=== PATIENT | male | born 1965 | race African-American/Black ===

== ENCOUNTER → 2023-12-10 | Outpatient (REF) | payer OTHER, SELFPAY | LOC: DHSLP | PROVIDERS: ATTENDING PHYSICIAN Internal Medicine; FAMILY PHYSICIAN Family Medicine | DX: G47.33 Obstructive sleep apnea (adult) (pediatric) (principal) | CPT/HCPCS: 95800 ==

== ENCOUNTER 2024-11-15 11:03 | Inpatient (IN) | payer OTHER, SELFPAY ==
[2024-11-15] VITALS (21 sets, daily range): BP systolic 109–154; BP diastolic 68–95; BMI 27.0
[2024-11-15 05:51] LABS: % Basophils 0.5 % (0-2); % Eosinophils 1.3 % (0-6); % Immature Granulocytes 0.4 % (0-0.5); % Lymphocytes 27.8 % (20.5-51.1); % Monocytes 7.3 % (1.7-9.3); % Neutrophils 62.7 % (42.2-75.2); Absolute Eosinophils 0.1 10^3/uL (0-0.7); Absolute Lymphocytes 2.2 10^3/uL (1.2-3.4); Absolute Monocytes 0.6 10^3/uL (0.1-0.6); Hematocrit 42.4 % (39.0-52.0); Hemoglobin 14.1 g/dL (13.0-18.0); Mean Corp Hgb Conc. 33.3 g/dL (33.0-37.0); Mean Corpuscular Hgb 28.6 pg (27.0-31.0); Mean Platelet Volume 10.7 fL (7.4-10.4); Nucleated Red Blood Cells % 0 % (-); Platelet Count 185 10^3/uL (130-400); Red Blood Cell Count 4.93 10^6/uL (4.70-6.10); Red Cell Dist. Width 12.5 % (11.5-14.5)
--- NOTE | 2024-11-15 05:58 | ED.GENMED ---
History of Present Illness
General
Chief Complaint: Chest Pain
Source: patient and ambulance crew
Exam Limitations: none
Time Seen by Provider: 11/15/24 05:58
Nursing documentation reviewed up to this point in time: agreed with
History of Present Illness
History of Present Illness:
59-year-old male presents emergency room due to chest pain that woke up from sleep. He took 4x81mg aspirins prior to EMS arrival and caused chest pain to go away. He denies pain at this time.
Past History
Past History
ED Past Medical History: HTN
ED Past Surgical History: Orthopedic (Left hip replacement due to arthritis)
Social History
Tobacco: Non-smoker
Alcohol: Occasional
Drug: None
Living: with family
Employment: Employed
Review of Systems
Review of Systems
Allergies reviewed?: Yes
All Other Systems: Not applicable
Constitutional: Reports no symptoms
EENT: Reports no symptoms
Respiratory: Reports no symptoms
Cardiac: Reports chest pain
ABD/GI: Reports no symptoms
: Reports no symptoms
Musculoskeletal: Reports no symptoms
Skin: Reports no symptoms
Neurological: Reports no symptoms
Endocrine: Reports no symptoms
Hematologic/Lymphatic: Reports no symptoms
Psychiatric: Reports no symptoms
Phy Exam
Physical Exam
Physical Exam:
Physical Exam
General: no apparent distress, not acutely ill
Neck: supple. no meningeal signs. normal posterior pharynx
Heart: s1/s2 regular rate and rhythm, no murmur. equal radial
pulses.
HEENT: Pupils equal round reactive to light, EOMI
Lungs: no acute respiratory distress. clear bilaterally
Abdomen: normal bowel sounds. not tender. no CVAT
Neuro: alert and oriented. no focal neurological deficits cranial nerves II through XII intact
Skin: no rash
Psychiatric: well kept. interactive and cooperative
Extremities: no edema. no calf tenderness. negative homans. good distal pulses
Scores
Heart Score for Chest Pain Patients
STEMI patient?: No
History: Moderately Suspicious
ECG: Normal
Age: >45 - <65 years
Risk Factors: 1 or 2 Risk Factors
Troponin: >/= 3 x Normal Limit
Heart Score for Chest Pain Patients: 5
Heart Score Risk: 20.3% MACE over next 6 weeks
Course
Orders/Labs/Results
Orders:
Orders
11/15/24 05:27
Electrocardiogram (*1) Urgent
Reason for Study: Chest Pain
EKG- Treatment ONCE
11/15/24 05:39
Complete Blood Count/With Diff Urgent
Comprehensive Metabolic Panel Urgent
Troponin I Urgent
11/15/24 08:37
ECG [Electrocardiogram (*1)] Urgent
Reason for Study: Chest Pain
Other Reason for Exam: repeat with troponin
EKG- Treatment ONCE
11/15/24 08:47
Troponin I Urgent
11/15/24 09:42
Heparin 4,000 units IV NOW STA
Pharmacy Request to Place See Dose Instructions PO NOW STA
Discontinue all Active Warfarin orders?: Yes
Nursing to Place Non Medication Order As Directed
Physician Order: PTT 6 hours after initial start of Heparin infusion
Above order entered?: Yes
11/15/24 09:45
Heparin 86287 Units/250 ml 25,000 units in 250 ml IV PER PROTOCOL
Weight to be used for heparin protocol in kilograms (kg):: 73.7
Protocol:: Cardiac Tx/Acute Coronary
PTT Goal Range to be used:: PTT 73 to 111 seconds
Order type:: Initial
INITIAL Infusion Dose (UNITS/KG/hr) & then follow protocol:: 15 units/kg/hr
Infusion Dose in UNITS/hr & then follow protocol (UNITS/hr):: 1,100
INFUSION RATE in mL/hr & then follow protocol (mL/hr):: 11
PTT less than or equal to 64 seconds:: Increase rate by 200 units/hr (+ 2 mL/hr)
PTT 64.1 to 72.9 seconds:: Increase rate by 100 units/hr (+ 1 mL/hr)
PTT 73 to 111 seconds:: Target Range. No change in rate.
PTT 111.1 to 130.9 seconds:: Decrease rate by 100 units/hr (- 1 mL/hr)
PTT 131 to 199.9 seconds:: HOLD for 1 hr. Then decrease rate by 200 units/hr (- 2 mL/hr)
PTT greater than or equal to 200 seconds:: HOLD for 2 hrs & Notify Provider. Then decrease by 200 units/hr (-
2 mL/hr)
Lab follow-up:: Each change, PTT q6h until 2 consecutive are therapeutic. Then PTT
daily.
11/15/24 10:[address] See Dose Instructions IV DIRECTED
11/15/24 10:01
PTT Urgent
Comment: Obtain baseline before beginning heparin infusion if not already collected
11/15/24 10:39
Admit/Transfer Patient As Directed
Co-Sign Provider:
Level of Care: Inpatient admission
Assign to:: IVU
Physician / Group: Torrey Hancock
Diagnosis: chest pain, r/o NSTEMI
Reason for Hospitalization: chest pain, r/o NSTEMI
Expected length of stay greater than two midnights?: Yes
ELOS- Estimated Length of Stay in days: 2
I certify the patient meets the requirements for IP care: Yes
Aspirin 325 mg PO NOW STA
PRN Pain Medication Management As Directed
May give lesser potent ordered pain med per pt: Yes
preference::
Protocol:: Medication orders for pain may be administered in a
manner that supports deferring to patient preference
when the pt is:
- Requesting an ordered lesser potent pain medication.
Least to most potent pain medications are defined
as: acetaminophen < NSAID < tramadol < opioids
(morphine, oxycodone, hydromorphone).
- Requesting a lesser dose of the same medication IF
ORDERED.
- Requesting a less intrusive route of administration
if both routes are prescribed by the provider (PO <
IV).
11/15/24 10:40
Code Status As Directed
Resuscitation Status: Full Code
11/15/24 10:44
Echo 2D MMode Color/Doppler Urgent
Reason for Study: chest pain
Abnormal Lab Results
11/15/24 11/15/24
05:39 08:47
MPV 10.7 H fL
(7.4-10.4)
Troponin I 0.039 H* ng/ml 0.751 H* D ng/ml
Total Protein 9.1 H g/dl
(6.3-8.2)
11/15/24 05:39
11/15/24 05:39
Vital Signs
Initial and Last Documented VS:
Initial Vital Signs
Pulse Resp
68 19
11/15/24 05:23 11/15/24 05:23
Last Documented Vital Signs
Temp Pulse Resp BP Pulse Ox
97.4 F 66 14 114/74 98
11/15/24 05:28 11/15/24 09:15 11/15/24 09:15 11/15/24 09:00 11/15/24 09:15
MDM/Problems Addressed
Differential Diagnosis Includes:
ACS, PE
MDM/Problems Addressed:
59-year-old male with ACS, troponin elevated. Do not suspect PE. Patient took aspirin at home. Heparin given in ED. Admit to hospitalist. Cardiology to see patient.
Chronic conditions affecting care: HTN
Acute Exacerbation and/or Progression of Chronic Illness: HTN
*Pulse Oximetry
Patient hypoxic: no
*EKG
Interpreted by ED Provider?: Yes
EKG Intrepretation Date: 11/15/24
EKG Intrepretation Time: 05:29
Interpretation: normal
Comparison EKG: no comparison EKG present
Heart Rate: 64
Rate: normal
Rhythm: sinus
[place]: normal axis
Interval: normal interval
QRS Pattern: normal QRS
Ischemia: no ischemia
*Embroidery Finisher Interpretation
Rate: normal
Interpretation: normal
Heart Rate: 65
Rhythm: sinus
*Critical Care Note
Total Time (30-74mins, 75-104mins- exclusive of procedures): 30
comment:
Critical care statement: A total of 30 minutes of critical care time was provided for this patient. This includes management of unstable vital signs, evaluation of the patient at bedside, reviewing the patient's pertinent medical records, discussion
with consultants, review of old EKGs and review of pertinent medical records. This time with separate from time utilized to perform the aforementioned documented procedures
Patient Management
Social determinants of health affecting care: Living situation and Strong social support
Discussion with other providers: Hospitalist and Community Placement Worker (Cardiology, Dr. York)
Escalation/DeEscalation of care consider admission/obs:
Admission indicated
ED Attending Note
-
Portions of this chart may have been created with voice recognition software.� Occasional wrong word or��sound alike� substitutions may have occurred due to the inherent limitations of voice recognition software.
Discharge Plan
Departure
Patient Disposition: Admit
Date of Disposition: 11/15/24
Time of Disposition: 09:36
Admit to: IVU
Presentation/result/management discussed w/ accepting MD/DO: Hospitalist
Patient with high blood pressure during this ER visit?: No
Condition: Good
Discharge Problem:
Acute non-ST elevation myocardial infarction (NSTEMI)
Interventions
Interventions:
*General Assessment Last Done: 11/15/24 05:28
*Neglect/Abuse Screening Last Done: 11/15/24 05:28
ED- Fall Risk Assessment Last Done: 11/15/24 07:27
*ED COVID-19 Vaccine History Last Done: 11/15/24 05:37
ED- Cardiac Assessment Last Done: 11/15/24 07:27
[2024-11-15 06:02] LABS: ALT (SGPT) 25 U/L (0-50); AST (SGOT) 32 U/L (17-59); Alkaline Phosphatase 88 U/L (38-126); Blood Urea Nitrogen 17 mg/dl (9-20); Calcium 9.3 mg/dl (8.4-10.2); Carbon Dioxide 22 mmol/L (22-30); Chloride 101 mmol/L (98-107); Estimated Creatinine Clearance 59 ml/min; Glucose 89 mg/dl (70-99); Sodium 140 mmol/L (135-145); Total Bilirubin 0.8 mg/dl (0.2-1.3); Total Protein 9.1 g/dl (6.3-8.2); eGFR > 60.00
[2024-11-15 06:20] LABS: Troponin I 0.039 ng/ml
[2024-11-15 09:21] LABS: Troponin I 0.751 ng/ml
[2024-11-15] MEDS: HEPARIN 25000 UNITS/250 ML IV (09:52)
[2024-11-15] MEDS: HEPARIN 4000 UNITS IV (10:05)
[2024-11-15 10:20] LABS: APTT 30.1 Sec (23.4-35.0)
--- NOTE | 2024-11-15 10:48 | HPS.HSE ---
Family Physician
-
Family Physician: Guzman Pierre
Chief Complaint
-
Chest pain
History of Present Illness
Patient is a 59-year-old male with past medical history of hypertension, history of bipolar disorder, sleep apnea came to ER with new onset of sternal chest pain in the morning today. Patient having waxing waning symptoms of substernal chest
pressure for 2 weeks. Patient woke up from the pain today in the morning. Minimal reported nausea and diaphoresis. Patient took 4 baby aspirin and EMS was called.
In ER patient was symptom-free denies of ongoing associated shortness of breath/dizziness/palpitation. No previous history of cardiac issues.
Denies of any ongoing abdominal/ complaints as well.
Medical History
Past Medical History
Past Medical History: Reports Other
Additional Past Medical History:
bipolar disorder, NILAY, HTN
Past Surgical History: Reports None
Social History
Tobacco: Non-smoker
Alcohol: Former
Drug: None
Living: With Family
Family History
Family History: Not pertinent
Allergies / Home Medications
Allergies reflects when Allergies were last updated in [email or web address].
Home Medications with original date entered in [email or web address]
Allergy/Medication List:
Allergies
Allergy/AdvReac Type Severity Reaction Status Date / Time
Penicillins Allergy Unknown Unknown Verified 11/15/24 11:19
eggs Allergy Unknown Rash Uncoded 11/15/24 11:19
flu shot Allergy Unknown Uncoded 11/15/24 11:19
Home Medications
aspirin 81 mg chewable tablet 324 mg PO DAILYPRN PRN chest pain 11/15/24
losartan 50 mg tablet 50 mg PO DAILY 11/15/24
Review of Systems
-
A 12 point ROS was completed and negative except as noted: Yes
Physical Exam
Vital Signs
Vital Signs
Temp Pulse Resp BP Pulse Ox
97.4 F 66 14 114/74 98
11/15/24 05:28 11/15/24 09:15 11/15/24 09:15 11/15/24 09:00 11/15/24 09:15
Physical Exam
General: Well Developed, Well Nourished and No Apparent Distress
HEENT: NormoCephalic, Moist mucous membranes and Atraumatic
Respiratory: Clear
Cardiac: S1/S2 and Regular Rhythm; No Murmur or Rub
GI: Soft, Non Tender, Non Distended and Normal Bowel Sounds; No Organomegaly
Rectal: Deferred by Provider
Musculoskeletal: No Clubbing, No Cyanosis and No Edema
Skin: No Rash
Neuro: Nonfocal/grossly intact
Laboratory Results
-
11/15/24 05:39
11/15/24 05:39
Laboratory Results
APTT 30.1 Sec (23.4-35.0) 11/15/24 10:01
Total Bilirubin 0.8 mg/dl (0.2-1.3) 11/15/24 05:39
AST 32 U/L (17-59) 11/15/24 05:39
ALT 25 U/L (0-50) 11/15/24 05:39
Alkaline Phosphatase 88 U/L (38-126) 11/15/24 05:39
Troponin I 0.751 ng/ml H* D 11/15/24 08:47
Data Reviewed
-
Lab Data: Labs Reviewed by me, Discussed with Patient and Discussed with Family
Impression/Plan
-
1. Chest pain
NSTEMI
-Ongoing on and off substernal chest pain with worsening in the morning today
-Patient had elevated troponin 0.39 > 0.75
-EKG reviewed and no significant ST seg elevation
-Got aspirin 325 mg in the ER
-Started on heparin drip
-TTE ordered
-Cardio evaluation requested
2. Essential HTN
- hold losartan with possible need of LHC
3. HLD
- TC 219 LDL 157 HDL 46
- started on lipitor 40mg qpm
DVT PPX - heparin drip
Full code
Total time spent : 77 mins
I personally saw and examined the patient.
I have reviewed all diagnostic interpretations and treatment plans as written.
Time includes patient management by me, time spent at the patients bedside, time to review lab and imaging results, discussing patient care, documentation in the medical record, and time spent with the family or caregiver and discussing care plan
with RN/Consultants.
--- NOTE | 2024-11-15 11:05 | CON.CAR ---
Addendum entered and electronically signed by Denton Pinedo MD 11/15/24 12:33:
Attending addendum: Patient seen and examined. PA note reviewed and findings independently confirmed by me. Briefly, Simeon is a 59-year-old gentleman with a past medical history notable for hypertension, unknown lipids, bipolar disorder which he
discontinued his Risperdal quite sometime ago, and sleep apnea. He presented to [facility] with a 2-week history of waxing and waning substernal chest pressure. The initial episode occurred during a lunch break at work approximately 2
weeks ago. He developed epigastric and substernal chest pressure lasting approximately 10 minutes before spontaneous resolution. He remained chest pain-free over the intervening 2 weeks but developed recurring chest tightness last evening which
awoke him from sleep. He lives with his parents and called for help. He was nauseated and somewhat diaphoretic. They gave 4 baby aspirin and 911 was called. He was chest pain-free on arrival but developed some vague recurring chest tightness
which also resolved with medical therapy. His initial troponin measured 0.039 ng/mL and measured 0.751 ng/mL on repeat.
GEN: AAO x 3.��No acute distress
HEENT:��NC/AT, sclera are anicteric, hearing and nares are normal.�
NECK: Supple.��Normal JVP
LUNGS: Clear to bases bilaterally.��No wheezing or rhonchi
CV: Regular rate and rhythm.��Normal S1/S2.��No S3, No S4.��Murmur: None
ABD : Soft, NT, ND, No HSM.��Bowel sounds are present.
EXT: No CCE. Faint right radial pulse.
NEURO: No focal neurologic deficits��
RECOMMENDATION:
-Non-ST segment elevation myocardial infarction:
Will proceed with left heart catheterization to delineate coronary anatomy. Further management decisions will be made after the angiogram is completed.
Aspirin 324 mg
Continue IV heparin
Check fasting lipid profile and continue to trend troponin levels
High intensity statin
-Hypertension
He states blood pressures are reasonably well-controlled on losartan/hydrochlorothiazide. Will continue to monitor.
-Unknown lipids:
Fasting lipid profile
Will require high intensity statin therapy
Original Note:
Consultation
Consultation Request
Date/Time Consultation Requested: 11/15/24
Date/Time Consultation Performed: 11/15/24
Requesting Provider: Dr. Torrey Hancock
Performing Provider: Dr. Pineod
Reason for Consultation: Chest pain, elevated Troponin
Medical History
-
History of Present Illness:
Patient came to [facility] with chest pain and cardiology is consulted due to increasing Troponin. Patient volunteers that he is the son of Yanna Solorio who follows with Dr. Pinedo and has a h/o CAD. Patient's sister is sitting bedside and reports that
patient's sister had CABG in her late 50s and his mother had PCI in her late 50s as well. Patient does not have a h/o CAD and has not previous cardiac testing. 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
started with chest pain after eating his lunch and the pain improved within minutes and he finished his shift. No recurrence of pain until he was at work again last night and again had pain after eating, but was able to walk back to his machine and
the pain improved without specific intervention and he finished his shift. Patient returned home and went to bed around 0300 this morning and awoke with crushing chest pain that was similar to, but much more intense than the pain he had last night.
He sat up and the pain was worse. He called out to his parents for help and they called 911 and had him chew 4 baby aspirin. Patient says pain improved in the ambulance and he was not given NTG SL. No recurrence of pain. Initial Troponin in the ER
was 0.039 and then up to 0.751. ECG with J point elevation, but no acute ST changes. He is pain free during my HPI. Patient reports 20 lb weight loss due to less snacking and eating food with him family at home instead of going out.
PMH:
FH CAD
Bipolar disorder, stopped taking Risperdal on his own
Past Medical History
Past Medical History: Other (in HPI)
Past Surgical History: Orthopedic (left LYNETTE) and Other (adenoidectomy)
Social History
Tobacco: Non-Smoker
Alcohol: Occasional
Drug: None
Personal: Single
Living: With Family
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
Family History
Family History: CAD
Allergies / Home Medications
Allergy/AdvReac Type Severity Reaction Status Date / Time
Penicillins Allergy Unknown Unknown Unverified 06/23/20 11:04
eggs Allergy Unknown Rash Uncoded 06/23/20 11:04
flu shot Allergy Unknown Uncoded 06/23/20 11:30
�Medication �Instructions �Recorded �Confirmed �Type
aspirin 81 mg chewable tablet 324 mg PO DAILYPRN PRN chest pain 11/15/24 11/15/24 History
losartan 50 mg tablet 50 mg PO DAILY 11/15/24 11/15/24 History
Review of Systems
-
History Source: Patient and Family (sister sitting bedside)
All other systems: Negative unless noted
Physical Exam
Vital Signs
Temp Pulse Resp BP Pulse Ox
97.4 F 66 14 114/74 98
11/15/24 05:28 11/15/24 09:15 11/15/24 09:15 11/15/24 09:00 11/15/24 09:15
GEN: NAD. AAOx3
HEENT: EOMI, MMM
LUNGS: RA. CTA B/L, no wheeze
CV: SR on tele. Reg, S1/S2, no murmur
ABD: soft, BS+, NT, ND
EXT: No clubbing, cyanosis, lesion or edema B/L
NEURO: Gross non-focal
SKIN: Warm, dry and pink. No rash
Lab Results
11/15/24 05:39
11/15/24 05:39
Troponin I 0.751 ng/ml H* D 11/15/24 08:47
Impression / Plan
-
PCP: Dr. Pierre
Cardiology: None
Impression:
Chest pain, ACS 11/15/24
Elevated Troponin
FH CAD
Bipolar disorder, stopped taking Risperdal on his own
Echo 11/15/24: Study pending
Plan:
-Patient came to [facility] with chest pain and cardiology is consulted due to increasing Troponin. Patient volunteers that he is the son of Yanna Solorio who follows with Dr. Pinedo and has a h/o CAD. Patient's sister is sitting bedside and reports that
patient's sister had CABG in her late 50s and his mother had PCI in her late 50s as well. Patient does not have a h/o CAD and has not previous cardiac testing. 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
started with chest pain after eating his lunch and the pain improved within minutes and he finished his shift. No recurrence of pain until he was at work again last night and again had pain after eating, but was able to walk back to his machine and
the pain improved without specific intervention and he finished his shift. Patient returned home and went to bed around 0300 this morning and awoke with crushing chest pain that was similar to, but much more intense than the pain he had last night.
He sat up and the pain was worse. He called out to his parents for help and they called 911 and had him chew 4 baby aspirin. Patient says pain improved in the ambulance and he was not given NTG SL. No recurrence of pain. Initial Troponin in the ER
was 0.039 and then up to 0.751. ECG with J point elevation, but no acute ST changes. He is pain free during my HPI. Patient reports 20 lb weight loss due to less snacking and eating food with him family at home instead of going out.
-ECG reviewed by me with J point elevation, no acute ST elevation, SR.
-Initial Troponin 0.039 and then 0.751 and a story concerning for ACS. Pain free now on heparin gtt. Talked with patient and his sister about cardiac cath and they are very familiar with the procedure given their strong FH of CAD. Patient would be
agreeable to cardiac cath pending echo.
-Urgent echo now, I called echo team to coordinate care.
-Heparin gtt started in the ER
-Aspirin 324 mg taken at home prior to EMS arrival.
-Check CVE, patient was not taking statin prior to admission.
-BP 117/78 and he was not taking BP meds prior to admission.
[2024-11-15 12:27] LABS: HDL Cholesterol 46 mg/dl; LDL Cholesterol, Calculated 157 mg/dl; Total Cholesterol 219 mg/dl (50-199); Triglyceride 82 mg/dl (10-149); Very Low Density Lipoprotein 16 mg/dl (0-30)
[2024-11-15 13:06] LABS: ACT-LR - POC 173 Seconds (116-155)
[2024-11-15 13:10] LABS: ACT-LR - POC 189 Seconds (116-155)
[2024-11-15 13:19] LABS: ACT-LR - POC 171 Seconds (116-155)
[2024-11-15 13:35] LABS: ACT-LR - POC 170 Seconds (116-155)
[2024-11-15 13:49] LABS: ACT-LR - POC 284 Seconds (116-155)
[2024-11-15 13:50] LABS: ACT-LR - POC 285 Seconds (116-155)
[2024-11-15 13:59] LABS: ACT-LR - POC 327 Seconds (116-155)
--- NOTE | 2024-11-15 14:12 | ITS.CL.CATH ---
Crude Tester - Catheterization
Cardiac Catheterization
Procedure Report:
LEFT HEART CATH AND CORONARY INTERVENTION
Date of Procedure: November 15, 2024
Referring: [facility] Emergency Department
PROCEDURES:
1. Left heart catheterization with coronary and single-plane left ventriculography
2. Successful stenting of the mid LAD with a 4.0 x 15 mm [place] stent that was implanted at nominal pressures and postdilated with a 4.0 mm noncompliant balloon to 20 ashleigh in the proximal and midportion of the stent and 16 ashleigh distally
3. Intravascular ultrasound
INDICATION: This is a 59-year-old gentleman with a family history of premature coronary artery disease and personal history of hypertension and bipolar disorder. He has bipolar disorder has been stable for some time and he has been off Risperdal
for quite some time. He presented to [facility] with a history of waxing and waning substernal chest pressure beginning approximately 2 weeks before his hospital admission. He reports that he was at work eating dinner at the second shift
somewhere around 6 PM when he developed midepigastric discomfort and substernal chest discomfort that lasted for about 10 minutes. His symptoms resolved spontaneously then did not return until last evening when he suddenly awoke at 3 AM with severe
substernal chest pressure. He was diaphoretic and nauseated. He presented to [facility] for further evaluation with an initial troponin of 0.039 and 0.751 on repeat several hours later. Given his classic story of unstable angina/NSTEMI
the decision was made to proceed with coronary angiography.
ACCESS: Right radial artery, 6 Polish sheath using ultrasound guidance
HEMODYNAMICS (mmHg):
AO (s/d, m) : 136/74
LV (s/d) : 138/8
LVEDP : 18
CORONARY FINDINGS
Dominance: Right
LEFT MAIN: Normal
LEFT ANTERIOR DESCENDING: The LAD arises normally from the left main and runs in the anterior interventricular groove. There is a 50% stenosis in the mid LAD beyond the first diagonal branch which appears smooth. The LAD tapers beyond the second
diagonal branch with minor irregularities as it approaches the apex. The LAD wraps completely around the apex supplying a portion of the inferior wall. No focal obstructive stenosis is noted from the mid through distal LAD
CIRCUMFLEX: The circumflex is a large-caliber nondominant vessel that supplies a single large obtuse marginal branch. The circumflex and obtuse marginal branch are widely patent with OM trifurcating distally to terminally into several small
branches which appear widely patent
RIGHT CORONARY: The right coronary artery is a small caliber dominant vessel that is widely patent
VENTRICULOGRAPHY: Left ventriculography is performed in an NOEL projection. The the digital single-plane left ventricular ejection fraction is estimated at 60% with mild anterolateral hypokinesis
ANGIOPLASTY PROCEDURE DETAIL: Upon review of the diagnostic catheterization films I was somewhat reluctant to attribute symptoms to the smooth stenosis in the mid LAD, however, his clinical history was quite concerning for an acute coronary syndrome
with symptoms awakening him from sleep last evening. His chest pain was associated with nausea and diaphoresis. Additionally, his troponin became modestly elevated in association with symptoms and ventriculography was notable for mild hypokinesis
noted in the anterolateral wall. Ultimately the decision was made to proceed with stenting of the mid LAD after review of all the data. I did not believe that iFR would provide additional reliable evidence to directed medical therapy.
We encountered significant difficulty in obtaining a therapeutic ACT. Boluses of intravenous heparin were administered and we waited patiently until therapeutic ACT was achieved. Unfortunately after more than 10,000 units of heparin were given the
ACT remained less than therapeutic levels and the IV access site looked good but was changed to the alternative arm. Additional heparin was given and the ACT measured 286 seconds. Additional heparin was given and the ACT was repeated now measured
327 seconds.
The origin of the left main was cannulated with a 6 Polish EBU 3.5 guiding catheter and a BMW guidewire was advanced across the stenosis in the mid LAD. The lesion appeared to be approximately 15 mm in length and was primarily stented using an Algodones
4.0 x 15 mm that was implanted at nominal pressures. Intravascular ultrasound was then performed and the stent dimensions appeared well sized to the arterial dimensions. The stent was postdilated to high pressures with a 4.0 mm noncompliant
balloon to 20 ashleigh in the proximal and midportion of the stent and 16 ashleigh distally
RADIATION SUMMARY: Fluoro Time (min): 12.3, Dose (mGy): 3291, DAP (Gy.cm2) : 485
CONCLUSIONS
1. Successful stenting of the mid LAD with placement of a 4.0 x 15 mm Moreno stent that was implanted at nominal pressures and postdilated to high pressures with a 4 mm noncompliant balloon
2. Preserved LV systolic function with mild anterolateral hypokinesis
RECOMMENDATIONS
1. High intensity statin and guideline directed medical therapy for goal blood pressure below 130/80
2. Uninterrupted dual antiplatelet therapy
3. Continue to trend serial troponin levels
4. Fasting lipid profile and hemoglobin A1c to be obtained
Copy to: Dr. Neo Pierre
--- NOTE | 2024-11-15 16:25 | CM ---
Priced Brilinta thru patient's insurance, . Estimated cost of Brilinta would be $0/mo.
TT to SHAINA to update.
--- NOTE | 2024-11-15 16:28 | CM ---
CM following for DC planning needs.
Met w/ patient at bedside to complete initial assessment. Mother, father also present.
Pt. resides w/ his parents in a private, 2 story home.
Functionally, patient is indep. w/ ADLs, mobility without the use of any assisted device.
Pt. uses [facility] in [place] on [address]/ [address] for Rx needs. Reviewed est. cost of Brilinta.
Anticipated DC plan is for home, no needs.
Will follow.
[2024-11-15] MEDS: NSS 1000 IV (16:42)
[2024-11-15] MEDS: LIPITOR 80 MG PO (16:43)
--- NOTE | 2024-11-15 17:25 | PTCARENOTE ---
Received pt from cardiac cytology laboratory manager at 1515. Pt noted to have swelling proximal and distal to radial band. Manual pressure applied by RN and cytology laboratory manager RN for a total of 20 minutes. Persistent swelling noted. HOSPICE VOLUNTEER from cytology laboratory manager applied pressure for
about 10 min. HOSPICE VOLUNTEER then applied a second R band proximal to original R band w/ 10 ml of air. RN and HOSPICE VOLUNTEER evaluating pt's right radial site. Pulse ox on pt's right thumb >94%. VSS. The removal of air from both R bands removed tandemly. Pt denies
any discomfort. Will monitor.
[2024-11-15 18:23] LABS: Troponin I 0.352 ng/ml
[2024-11-16 03:02] VITALS: BP 124/81
[2024-11-16 04:11] LABS: Hematocrit 36.4 % (39.0-52.0); Hemoglobin 11.8 g/dL (13.0-18.0); Mean Corp Hgb Conc. 32.4 g/dL (33.0-37.0); Mean Corpuscular Hgb 28.4 pg (27.0-31.0); Mean Corpuscular Volume 87.5 fL (80.0-94.0); Platelet Count 169 10^3/uL (130-400); Red Blood Cell Count 4.16 10^6/uL (4.70-6.10); Red Cell Dist. Width 12.7 % (11.5-14.5)
[2024-11-16 04:29] LABS: Blood Urea Nitrogen 12 mg/dl (9-20); Calcium 8.6 mg/dl (8.4-10.2); Carbon Dioxide 19 mmol/L (22-30); Chloride 106 mmol/L (98-107); Estimated Creatinine Clearance 64 ml/min; Glucose 85 mg/dl (70-99); HDL Cholesterol 38 mg/dl; LDL Cholesterol, Calculated 124 mg/dl; Potassium 3.9 mmol/L (3.5-5.1); Sodium 136 mmol/L (135-145); Total Cholesterol 178 mg/dl (50-199); Triglyceride 81 mg/dl (10-149); Very Low Density Lipoprotein 16 mg/dl (0-30); eGFR > 60.00
[2024-11-16 06:00] VITALS: BMI 26.3
--- NOTE | 2024-11-16 06:10 | PTCARENOTE ---
Pt NSR on monitor. VSS. Denies pain or SOB. Independent in the room. Call pizarro in reach
[2024-11-16 07:31] VITALS: BP 139/80
[2024-11-16] MEDS: LOW STRENGTH ASPIRIN 81 MG PO (07:35)
[2024-11-16] MEDS: COZAAR 50 MG PO (07:35)
[2024-11-16] MEDS: BRILINTA 90 MG PO (07:35)
--- NOTE | 2024-11-16 09:54 | W.PN.CARDCBS ---
Addendum entered and electronically signed by Micki Lange MD 11/16/24 11:39:
I saw and examined the patient.
The Varnish Finisher's note was reviewed and I agree with the note.
Comment: Patient sitting in chair with no complaint except right wrist is swollen. Denies chest pain or palpitations. Telemetry stable. EKG stable.
Status post non-Q wave myocardial infarction. He underwent LAD stent 11/15/2024 and is doing well.
Continue usual postprocedure care
Aggressive risk factor modification
Uninterrupted dual antiplatelet therapy
Cardiac rehab
Evaluation of right radial hematoma with ultrasound
If all is stable he been discharged today.
Original Note:
Today's Communication / Plan
-
Check right radial u/s
Check with CM on pricing and availability of Brilinta
52 min in face to face and coordination of care
Impression / Plan
-
PCP: Dr. Pierre
Cardiology: Dr. Pinedo
Impression:
Chest pain, ACS 11/15/24
NSTEMI, peak Troponin 0.751
CAD s/p 4 mm [place] mid LAD 11/15/24
FH CAD
Bipolar disorder, stopped taking Risperdal on his own
Right radial hematoma
Echo 11/15/24: EF 58%, no WMA, normal RV size and function
Plan:
-Patient is s/p mid LAD PCI 11/15/24. No chest pain overnight.
-New to aspirin 81 mg daily and Brilinta 90 mg BID. Patient has commercial insurance, will ask CM to check on cost and availability.
-Right radial tender with hematoma and ecchymosis. Will check right radial u/s.
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 Patient was told he should not do machinist automotive work for the next 7 days and will provide a note.
-Peak Troponin 0.751. Will manage as a NSTEMI
-Cardiac rehab consulted and patient's first session scheduled for November.
-Outpatient dose of losartan 50 mg daily has been continued and BP stable.
-Patient with known NILAY on CPAP and overnight tele reviewed that showed sinus bradycardia with HR 50. Will hold off on adding BB due to sinus bradycardia.
-LDL 124. New to atorvastatin 80 mg daily.
-Patient can likely be d/c'd to home 11/16/24 pending right radial u/s with cardiology f/u arranged
HPI: Patient came to [facility] with chest pain and cardiology is consulted due to increasing Troponin. Patient volunteers that he is the son of Yanna Solorio who follows with Dr. Pinedo and has a h/o CAD. Patient's sister is sitting bedside and reports
that patient's sister had CABG in her late 50s and his mother had PCI in her late 50s as well. Patient does not have a h/o CAD and has not previous cardiac testing. 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
started with chest pain after eating his lunch and the pain improved within minutes and he finished his shift. No recurrence of pain until he was at work again last night and again had pain after eating, but was able to walk back to his machine and
the pain improved without specific intervention and he finished his shift. Patient returned home and went to bed around 0300 this morning and awoke with crushing chest pain that was similar to, but much more intense than the pain he had last night.
He sat up and the pain was worse. He called out to his parents for help and they called 911 and had him chew 4 baby aspirin. Patient says pain improved in the ambulance and he was not given NTG SL. No recurrence of pain. Initial Troponin in the ER
was 0.039 and then up to 0.751. ECG with J point elevation, but no acute ST changes. He is pain free during my HPI. Patient reports 20 lb weight loss due to less snacking and eating food with him family at home instead of going out.
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
Subjective
Date of Service: November 16, 2024
Right wrist is tender
Objective
Labs:
11/16/24 03:29
11/16/24 03:29
Labs
Hgb 11.8 g/dL (13.0-18.0) L 11/16/24 03:29
Hct 36.4 % (39.0-52.0) L 11/16/24 03:29
Plt Count 169 10^3/uL (130-400) 11/16/24 03:29
APTT 30.1 Sec (23.4-35.0) 11/15/24 10:01
Sodium 136 mmol/L (135-145) 11/16/24 03:29
Potassium 3.9 mmol/L (3.5-5.1) 11/16/24 03:29
BUN 12 mg/dl (9-20) 11/16/24 03:29
Creatinine 1.1 mg/dL (0.7-1.3) 11/16/24 03:29
Glucose 85 mg/dl (70-99) 11/16/24 03:29
Troponins
11/15/24 11/15/24 11/15/24
05:39 08:47 17:12
Troponin I 0.039 H* 0.751 H* D Cancelled
11/15/24 11/15/24
17:45 18:26
Troponin I 0.352 H* Cancelled
Vital Signs and I&O:
Vital Signs
Temp Pulse Resp BP Pulse Ox
98.7 F 70 16 139/80 100
11/16/24 07:34 11/16/24 07:31 11/16/24 07:34 11/16/24 07:31 11/16/24 08:00
Vital Signs
Temp Pulse Resp BP Pulse Ox
98.7 F 70 16 139/80 100
11/16/24 07:34 11/16/24 07:31 11/16/24 07:34 11/16/24 07:31 11/16/24 08:00
Intake & Output
11/14/24 11/15/24 11/16/24 11/17/24
06:59 06:59 06:59 06:59
Intake Total 795 / 795
Output Total 1150 / 1150
Balance -355 / -355
Physical Exam
Physical Exam
GEN: NAD. AAOx3
HEENT: EOMI, MMM
LUNGS: RA. No wheeze
CV: SR on tele.
ABD: ND
EXT: Right radial site ecchymotic and swollen with some tenderness proximal to radial access site, but no bleeding when dressing removed, no bruit.
NEURO: Gross non-focal
SKIN: Warm, dry and pink. No rash
--- NOTE | 2024-11-16 09:54 | W.PN.UPDATE ---
Scores
GLENDA for NSTEMI
Age >/= 65: No
>/=3 CAD risk factors-HTN,High Chol,Fam hx CAD,DM,Smoker: Yes
Known CAD (stenosis >/=50%): No
ASA use in past 7 days: Yes
Severe angina (>/= 2 episodes in 24 hrs): No
EKG ST Changes >/= 0.5mm: No
Positive cardiac marker: Yes
Score: 3
Risk at 14 days-mortality, new/recurrent HI, severe ischemia: Intermediate Risk- 13% Risk at 14 days- all cause mortality, new or recurrent HI, or severe recurrent ischemia requiring urgent revascularization
[2024-11-16 11:41] VITALS: BP 143/85
[2024-11-16 12:39] LABS: Glycohemoglobin (HgbA1c) 5.3 % (4.0-5.6)
--- NOTE | 2024-11-16 14:04 | W.PN.HOSP.TC ---
Today's Communication/Plan
-
d/c planning
await cardio clearance
Assessment / Plan
Assessment / Plan
[facility] 11/15
1. Successful stenting of the mid LAD with placement of a 4.0 x 15 mm Evans stent that was implanted at nominal pressures and postdilated to high pressures with a 4 mm noncompliant balloon
2. Preserved LV systolic function with mild anterolateral hypokinesis

1. NSTEMI
CAD
-Ongoing on and off substernal chest pain with worsening in the morning today
-Patient had elevated troponin 0.39 > 0.75
-EKG reviewed and no significant ST seg elevation
-TTE normal
-underwent [facility] with Mid LAD LYNNE placement
-DAPT recommended at discharge
2. Radial hematoma
-minimal hematoma at radial access site
3. Essential HTN
-resume losartan back at discharge unless specified by cards
3. HLD
- TC 219 LDL 157 HDL 46
- started on lipitor 40mg qpm
DVT PPX - lovenox
Full code
More than 30 minutes spent in discharge including
Final examination of the patient
Summarizing hospital stay
Instructions for continuing care to all relevant caregivers
Preparation of discharge records, prescriptions, and referral forms
Total time spent (in minutes): 39 mins
Anticipated Discharge: Today
Subjective/Interval History
-
Date of Service: November 16, 2024
Resting comfortably in bed
No chest pain/palpitation/shortness of breath overnight
Objective Data
-
Labs:
Laboratory Results
11/16/24
03:29
WBC 6.0
Hgb 11.8 L
Hct 36.4 L
Plt Count 169
Sodium 136
Potassium 3.9
Chloride 106
Carbon Dioxide 19 L
BUN 12
Creatinine 1.1
Glucose 85
Calcium 8.6
Vital Signs:
Vital Signs
Temp Pulse Resp BP Pulse Ox
98.4 F 57 20 143/85 100
11/16/24 11:42 11/16/24 11:45 11/16/24 11:42 11/16/24 11:41 11/16/24 11:42
I&O
11/15/24 11/16/24 11/17/24
06:59 06:59 06:59
Intake Total 795 / 795
Output Total 1150 / 1150
Balance -355 / -355
Review of Systems
-
Respiratory: Reports No Symptoms
Cardiac: Reports No Symptoms
Abdomen/GI: Reports No Symptoms
Physical Exam
-
General: No Apparent Distress and Comfortable
HEENT: Negative Oxygen
Respiratory: Clear to Auscultation
Cardiac: Regular Rhythm and S1/S2; Negative Murmur or Rub
GI: Soft, Nontender, Nondistended and Normal Bowel Sounds
Musculoskeletal: No Edema
Neuro: Awake, Alert, Oriented, No Motor Deficits and Nonfocal/Grossly Intact
Psych: Calm
--- NOTE | 2024-11-16 14:05 | W.PN.UPDATE ---
Update Note
Progress Note Update
Radial artery u/s reviewed and the artery is patent with small hematoma, but no occlusion of pseudoaneurysm. Patient is stable for d/c to home and should continue DAPT with aspirin and Brilinta. Cardiology f/u arranged.
--- NOTE | 2024-11-16 14:44 | CM ---
CM following for DC planning needs.
Met w/ patient at bedside.
Pt. anticipating DC to home today; has no needs or concerns at this time.
Reviewed cost of Brilinta.
Plan is for DC to home, no needs.
--- NOTE | 2024-11-16 15:15 | PTCARENOTE ---
Pt received this am with no c/o of chest pain or sob. Right radial site dressing dry and intact. Site soft, slightly swollen and ecchymotic. Pt to US of right arm. Pt discharged to home with his parents. Discharge instructions given and reviewed
with complete understanding and all questions answered.
--- NOTE | 2024-11-17 17:22 | W.DCSUMMARY ---
Discharge Summary
Discharge Data
Date of Admission: 11/15/24
Date of Discharge: 11/16/24
-
Pending Results: No
Hospital Course
Discharging Physician : Dr Torrey Hancock
Disposition : To home
Primary care physician : Dr Guzman Pierre
Principal Discharge diagnosis :
Non-ST segment elevation myocardial infarction
Right radial arterial access site hematoma
Chronic Discharge diagnosis :
Coronary artery disease
Essential hypertension
Hyperlipidemia
Hospital Course :
Patient is 59-year old male with history of ongoing substernal chest pain for 2 weeks came to ER for acute worsening on the day of admission. Associated with some diaphoresis/nausea. No previous reported history of coronary disease. Troponin
check showed elevated troponin. Cardiology was involved in care and patient underwent an echocardiogram which was normal. Patient underwent left heart catheterization and was found to having possible mid LAD culprit lesion of 50% which was
stented. Post procedure patient maintained on dual antiplatelet therapy. Of note patient had minimal radial arterial access site hematoma on the right arm. Ultrasound did not show any other complicating features. Patient was discharged home at
this point with follow-up with cardiology in the office.
Important imaging findings :
None
Procedure findings :
None
Discharge Plan
-
Patient Disposition: Home (Routine Discharge)
Discharge Diagnosis/Procedures: Angioplasty and stent to Left Anterior Descending artery
Condition: Good
Diet: Low Fat
Activity: Other activity
Additional Activity: -Do not lift more than 10 lbs for the next 7 days.
Driving Restrictions: No driving for 24 hours
Bathing Restrictions: OK to Shower
Other Services: Cardiac Rehab
Stand Alone Forms: DC Instructions- Cath/EP Lab, Return to Work
Referrals:
[facility] [Outside] - 12/19/24 11:00 am
Guzman Pierre, [Family Provider] - in one week
Snehal Garcia CRNP [Specified Professional Personl] - 12/07/24 8:40 am
Additional Discharge Medication Instructions: -Take aspirin 81 mg once a day for forever
-Take Brilinta 90 mg twice a day uninterrupted for the next year, do not stop unless cardiology approves.
Prescriptions:
New
Brilinta 90 mg Tablet
90 mg PO BID Qty: 180 3RF
aspirin 81 mg Tablet,Chewable
81 mg PO DAILY Qty: 0 0RF
atorvastatin 80 mg Tablet
80 mg PO QPM Qty: 30 2RF
Continued
losartan 50 mg Tablet
50 mg PO DAILY
Discontinued
aspirin 81 mg Tablet,Chewable
324 mg PO DAILYPRN PRN (Reason: chest pain)
Discharge Orders:
Discharge Patient (As Directed); Ordered 11/16/24
Ordered By: Torrey Hancock
Discharge Date and Time
Discharge Date/Time: 11/16/24 15:12
Print Language: FRENCH
== END 2024-11-16 15:12 | disposition home or self-care (01) | DRG 322 ==
LOC: IVU 11:03
PROVIDERS: Physician Assistant Medical; Student in an Organized Health Care Education/Training Program; ADMITTING PHYSICIAN Hospitalist; EMERGENCY PHYSICIAN Emergency Medicine; FAMILY PHYSICIAN Family Medicine; OTHER PHYSICIAN Internal Medicine Interventional Cardiology
PROC: 4A023N7 Measurement of Cardiac Sampling and Pressure, Left Heart, Percutaneous Approach (ICD-10-PCS; 2024-11-15)
PROC: B211YZZ Fluoroscopy of Multiple Coronary Arteries using Other Contrast (ICD-10-PCS; 2024-11-15)
PROC: 027034Z Dilation of Coronary Artery, One Artery with Drug-eluting Intraluminal Device, Percutaneous Approach (ICD-10-PCS; 2024-11-15)
PROC: B240ZZ3 Ultrasonography of Single Coronary Artery, Intravascular (ICD-10-PCS; 2024-11-15)
PROC: B215YZZ Fluoroscopy of Left Heart using Other Contrast (ICD-10-PCS; 2024-11-15)
DX: I21.4 Non-ST elevation (NSTEMI) myocardial infarction (principal); L76.32 Postprocedural hematoma of skin and subcutaneous tissue following other procedure; I25.10 Atherosclerotic heart disease of native coronary artery without angina pectoris; I10 Essential (primary) hypertension; G47.33 Obstructive sleep apnea (adult) (pediatric); E78.5 Hyperlipidemia, unspecified; F31.9 Bipolar disorder, unspecified; Z87.891 Personal history of nicotine dependence; Z88.0 Allergy status to penicillin; Z79.899 Other long term (current) drug therapy; Z79.82 Long term (current) use of aspirin; Z96.642 Presence of left artificial hip joint; Z82.49 Family history of ischemic heart disease and other diseases of the circulatory system; Y83.8 Other surgical procedures as the cause of abnormal reaction of the patient, or of later complication, without mention of misadventure at the time of the procedure
CPT/HCPCS: 80048; 80053; 80061; 83036; 84484; 85025; 85027; 85347; 85730; 92978; 93005; 93306; 93458; 93926; 96374; 99291; C1725; C1753; C1769; C1874; C1894; C9600; Q9967

== ENCOUNTER 2024-11-24 11:21 | Outpatient (RCR) | payer OTHER, SELFPAY | END 2024-11-24 23:59 | disposition home or self-care (01) | LOC: CRHB 11:21 | PROVIDERS: ATTENDING PHYSICIAN Internal Medicine Interventional Cardiology; FAMILY PHYSICIAN Internal Medicine Cardiovascular Disease | DX: I21.4 Non-ST elevation (NSTEMI) myocardial infarction (principal); I25.10 Atherosclerotic heart disease of native coronary artery without angina pectoris; Z95.5 Presence of coronary angioplasty implant and graft | CPT/HCPCS: 93797; 93798 ==

== ENCOUNTER 2024-11-29 16:23 | Inpatient (IN) | payer OTHER, SELFPAY ==
[2024-11-29] VITALS (14 sets, daily range): BP systolic 105–154; BP diastolic 68–113; BMI 26.5
[2024-11-29 10:21] LABS: COVID-19 Antigen Negative (Negative)
--- NOTE | 2024-11-29 10:26 | ED.GENMED ---
History of Present Illness
General
Chief Complaint: Fever
Source: patient
Exam Limitations: none
Time Seen by Provider: 11/29/24 09:57
Nursing documentation reviewed up to this point in time: agreed with
History of Present Illness
History of Present Illness:
59-year-old male presents emergency department complaining of feeling lightheaded and chest pain, as well as a fever of 100.6. He has not taken any medications today. He typically takes his aspirin and Brilinta at noon.
Past History
Past History
ED Past Medical History: CAD and HTN
ED Past Surgical History: Orthopedic (Left hip replacement due to arthritis)
Social History
Tobacco: Non-smoker
Alcohol: Occasional
Drug: None
Living: with family
Employment: Employed
Review of Systems
Review of Systems
Allergies reviewed?: Yes
All Other Systems: Not applicable
Constitutional: Reports fever
EENT: Reports no symptoms
Respiratory: Reports no symptoms
Cardiac: Reports chest pain
ABD/GI: Reports no symptoms
: Reports no symptoms
Musculoskeletal: Reports no symptoms
Skin: Reports no symptoms
Neurological: Reports no symptoms
Hematologic/Lymphatic: Reports no symptoms
Psychiatric: Reports no symptoms
Phy Exam
Physical Exam
Physical Exam:
Physical Exam
General: temp 100.4
Neck: supple. no meningeal signs. normal posterior pharynx
Heart: s1/s2 regular rate and rhythm, no murmur. equal radial
pulses.
HEENT: Pupils equal round reactive to light, EOMI
Lungs: no acute respiratory distress. clear bilaterally
Abdomen: normal bowel sounds. not tender. no CVAT
Neuro: alert and oriented. no focal neurological deficits cranial nerves II through XII intact
Skin: no rash
Psychiatric: well kept. interactive and cooperative
Extremities: no edema. no calf tenderness. negative homans. good distal pulses
Scores
Heart Score for Chest Pain Patients
STEMI patient?: No
History: Moderately Suspicious
ECG: Normal
Age: >45 - <65 years
Risk Factors: >/= 3 Risk Factors or History of CAD
Troponin: >/= 3 x Normal Limit
Heart Score for Chest Pain Patients: 6
Heart Score Risk: 20.3% MACE over next 6 weeks
Course
Orders/Labs/Results
Orders:
Orders
11/29/24 09:25
ECG [Electrocardiogram (*1)] Urgent
Reason for Study: Chest Pain
EKG- Treatment ONCE
11/29/24 10:00
COVID-19 Antigen Urgent
Source: Nasal Swab
Influenza A+B Rapid Molecular Urgent
JAMIE Source: Nasal Swab
Specimen Description:
11/29/24 10:09
Cardiac Monitoring- Treatment ONCE
IV Insert/Care/Rem.- Treatment PRN
CR Chest - 2 Views Urgent
Comment:
Reason For Exam: chest pain, fever
Pulse Ox/cont/shift [RESP] Stat
Quantity: 1
11/29/24 10:15
Complete Blood Count/With Diff Urgent
Comprehensive Metabolic Panel Urgent
Troponin I Urgent
11/29/24 10:26
Aspirin Chewable [Low Strength Aspirin] 324 mg PO NOW STA
11/29/24 13:57
Echo Follow up Study W Dop Urgent
11/29/24 14:57
Troponin I Urgent
11/29/24 15:50
PTT Urgent
Comment: Obtain baseline before beginning heparin infusion if not already collected
Heparin 4,000 units IV NOW STA
Pharmacy Request to Place See Dose Instructions PO NOW STA
Discontinue all Active Warfarin orders?: Yes
Nursing to Place Non Medication Order As Directed
Physician Order: PTT 6 hours after initial start of Heparin infusion
11/29/24 16:00
Heparin [id number] Units/250 ml 25,000 units in 250 ml IV PER PROTOCOL
Weight to be used for heparin protocol in kilograms (kg):: 72.2
Protocol:: Cardiac Tx/Acute Coronary
PTT Goal Range to be used:: PTT 73 to 111 seconds
Order type:: Initial
INITIAL Infusion Dose (UNITS/KG/hr) & then follow protocol:: 15 units/kg/hr
Infusion Dose in UNITS/hr & then follow protocol (UNITS/hr):: 1,100
INFUSION RATE in mL/hr & then follow protocol (mL/hr):: 11
PTT less than or equal to 64 seconds:: Increase rate by 200 units/hr (+ 2 mL/hr)
PTT 64.1 to 72.9 seconds:: Increase rate by 100 units/hr (+ 1 mL/hr)
PTT 73 to 111 seconds:: Target Range. No change in rate.
PTT 111.1 to 130.9 seconds:: Decrease rate by 100 units/hr (- 1 mL/hr)
PTT 131 to 199.9 seconds:: HOLD for 1 hr. Then decrease rate by 200 units/hr (- 2 mL/hr)
PTT greater than or equal to 200 seconds:: HOLD for 2 hrs & Notify Provider. Then decrease by 200 units/hr (-
2 mL/hr)
Lab follow-up:: Each change, PTT q6h until 2 consecutive are therapeutic. Then PTT
daily.
Pharmacy Request to Place See Dose Instructions IV DIRECTED
Abnormal Lab Results
11/29/24 11/29/24
10:15 14:57
RBC 4.63 L 10^6/uL
(4.70-6.10)
Absolute Neuts (auto) 7.6 H 10^3/uL
(1.4-6.5)
Absolute Lymphs (auto) 0.6 L 10^3/uL
(1.2-3.4)
Neutrophils % 85.2 H %
(42.2-75.2)
Lymphocytes % 6.7 L %
(20.5-51.1)
Creatinine 1.4 H mg/dL
(0.7-1.3)
Glucose 113 H mg/dl
(70-99)
Total Bilirubin 1.6 H mg/dl
(0.2-1.3)
AST 80 H U/L
(17-59)
ALT 67 H U/L
(0-50)
Troponin I 0.065 H* ng/ml 0.141 H* D ng/ml
Total Protein 8.7 H g/dl
(6.3-8.2)
11/29/24 10:15
11/29/24 10:15
Vital Signs
Initial and Last Documented VS:
Initial Vital Signs
Temp Pulse Resp BP Pulse Ox
100.4 F H 80 16 114/72 99
11/29/24 09:23 11/29/24 09:23 11/29/24 09:23 11/29/24 09:23 11/29/24 09:23
Last Documented Vital Signs
Temp Pulse Resp BP Pulse Ox
100.4 F H 89 23 154/73 99
11/29/24 09:23 11/29/24 15:45 11/29/24 15:45 11/29/24 15:00 11/29/24 13:45
MDM/Problems Addressed
Differential Diagnosis Includes:
ACS, pneumonia, COVID, influenza
MDM/Problems Addressed:
59-year-old male with unstable angina, slight fever. Unclear etiology of fever. No acute findings on echocardiogram. Serial troponins increasing. Admit to hospitalist. 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
Chronic conditions affecting care: CAD
Acute Exacerbation and/or Progression of Chronic Illness: CAD
*Pulse Oximetry
Patient hypoxic: no
*EKG
Interpreted by ED Provider?: Yes
EKG Intrepretation Date: 11/29/24
EKG Intrepretation Time: 09:27
Interpretation: normal
Comparison EKG: no changes
Heart Rate: 76
Rate: normal
Rhythm: sinus
[place]: normal axis
Interval: normal interval
QRS Pattern: normal QRS
Ischemia: no ischemia
*Mobile Ui/Ux Designer Interpretation
Rate: normal
Interpretation: normal
Heart Rate: 75
Rhythm: sinus
*Critical Care Note
Total Time (30-74mins, 75-104mins- exclusive of procedures): Not Applicable
Data Reviewed
Review of Other/Old Records Reveals: Operative Reports (prior LAD stent by Dr. Pinedo)
Source: records
Patient Management
Social determinants of health affecting care: Living situation
Discussion with other providers: Hospitalist and Computer Laboratory Technician (Dr. York cardiology recommends heparin)
Escalation/DeEscalation of care consider admission/obs:
admit indicated
ED Attending Note
-
Portions of this chart may have been created with voice recognition software.� Occasional wrong word or��sound alike� substitutions may have occurred due to the inherent limitations of voice recognition software.
Discharge Plan
Departure
Patient Disposition: Admit
Date of Disposition: 11/29/24
Time of Disposition: 15:38
Admit to: IVU
Presentation/result/management discussed w/ accepting MD/DO: Hospitalist
Patient with high blood pressure during this ER visit?: No
Condition: Good
Discharge Problem:
Unstable angina
Prescriptions:
No Action
losartan 50 mg Tablet
50 mg PO DAILY
Brilinta 90 mg Tablet
90 mg PO BID Qty: 180 3RF
aspirin 81 mg Tablet,Chewable
81 mg PO DAILY Qty: 0 0RF
atorvastatin 80 mg Tablet
80 mg PO QPM Qty: 30 2RF
Referrals:
[place],Guzman J., DO [Family Provider] -
Interventions
Interventions:
ED- Neurological Assessment Last Done: 11/29/24 10:00
ED-Skin Assessment Last Done: 11/29/24 10:00
Discharge Date and Time
Print Language: UZBEK
[2024-11-29] MEDS: LOW STRENGTH ASPIRIN 324 MG PO (11:00)
[2024-11-29 11:19] LABS: % Basophils 0.3 % (0-2); % Immature Granulocytes 0.4 % (0-0.5); % Lymphocytes 6.7 % (20.5-51.1); % Monocytes 5.4 % (1.7-9.3); % Neutrophils 85.2 % (42.2-75.2); Absolute Eosinophils 0.2 10^3/uL (0-0.7); Absolute Lymphocytes 0.6 10^3/uL (1.2-3.4); Absolute Monocytes 0.5 10^3/uL (0.1-0.6); Absolute Neutrophils 7.6 10^3/uL (1.4-6.5); Hematocrit 39.1 % (39.0-52.0); Hemoglobin 13.1 g/dL (13.0-18.0); Mean Corp Hgb Conc. 33.5 g/dL (33.0-37.0); Mean Corpuscular Hgb 28.3 pg (27.0-31.0); Mean Corpuscular Volume 84.4 fL (80.0-94.0); Mean Platelet Volume 9.9 fL (7.4-10.4); Nucleated Red Blood Cells % 0 % (-); Platelet Count 186 10^3/uL (130-400); Red Blood Cell Count 4.63 10^6/uL (4.70-6.10); Red Cell Dist. Width 12.3 % (11.5-14.5); White Blood Cell Count 8.9 10^3/uL (4.8-10.8)
[2024-11-29 11:32] LABS: ALT (SGPT) 67 U/L (0-50); AST (SGOT) 80 U/L (17-59); Albumin 4.5 g/dl (3.5-5.0); Alkaline Phosphatase 117 U/L (38-126); Blood Urea Nitrogen 10 mg/dl (9-20); Calcium 9.1 mg/dl (8.4-10.2); Carbon Dioxide 25 mmol/L (22-30); Chloride 98 mmol/L (98-107); Glucose 113 mg/dl (70-99); Potassium 4.2 mmol/L (3.5-5.1); Sodium 135 mmol/L (135-145); Total Bilirubin 1.6 mg/dl (0.2-1.3); Total Protein 8.7 g/dl (6.3-8.2); eGFR 58.62
[2024-11-29 11:45] LABS: Troponin I 0.065 ng/ml
--- NOTE | 2024-11-29 14:54 | CON.CAR ---
Addendum entered and electronically signed by Juanjo Parry MD 11/29/24 18:05:
I saw and examined the patient.
The Field Operator's note was reviewed and I agree with the note.
Comment: Briefly, 59-year-old man past medical history of CAD with recent LAD PCI who presents for evaluation following an episode of chest discomfort. Patient tells me that he was feeling warm/flushed and took his temperature at home and was
mildly elevated consistent with low-grade fever. At this time he developed chest pressure/discomfort which she tells me lasted for approximately 45 minutes and then resolved.
Patient was resting comfortably and chest pain-free at the time of my evaluation
Admission ECG showed normal sinus rhythm with no obvious ischemic changes
However, admission labs were notable for elevated and rising troponin 0.065�0.141
Transthoracic echocardiogram with normal LV function and no segmental wall motion abnormalities
With rising troponin plan to treat as NSTEMI with aspirin/Brilinta, high intensity statin, beta-edward and heparin drip, sublingual nitro as needed
Trend troponin to peak
Monitor on telemetry overnight
N.p.o. at midnight for possible left heart catheterization in a.m.
Appreciate hospital medicine input regarding fever, STEPHANIE and elevated LFTs
Original Note:
Consultation
Consultation Request
Date/Time Consultation Performed: 11/29/24
Requesting Provider: Dr. Chapman
Performing Provider: Nat Higgins PA-C for Dr. Parry
Reason for Consultation: elevated troponin, recent PCI
Medical History
-
Chief Complaint: fever
History of Present Illness:
Patient is a 59-year-old male with recent admission to [facility] 11/17/2024 for chest discomfort and ruled in for NSTEMI. He underwent cardiac catheterization resulting in mid LAD PCI. Echocardiogram showed preserved EF. He was
discharged on aspirin, Brilinta, Lipitor, losartan. He reports he has been compliant with medications as an outpatient. He states this morning he got up and was starting to get ready when he felt sensation of warmness throughout his body as well
as lightheadedness and some chest discomfort. He reports the chest discomfort as central in his chest, and felt different than the discomfort that made him come to the ER last week but in relatively same location. Denies radiation of discomfort.
He reports the pain went away on its own, and is not currently present. His temperature was 100.6 at home, 100.4 in ER. He denies sick contacts. Covid/flu negative. Trop 0.065.
PMH:
NSTEMI with mid LAD PCI 11/15/24
R radial hematoma
Bipolar disorder, stopped taking Risperdal on his own
Past Medical History
Past Medical History: Other (in HPI)
Past Surgical History: Orthopedic (left LYNETTE) and Other (adenoidectomy)
Social History
Tobacco: Non-Smoker
Alcohol: Occasional
Drug: None
Personal: Single
Living: With Family
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
Family History
Family History: CAD
Allergies / Home Medications
Allergy/AdvReac Type Severity Reaction Status Date / Time
Penicillins Allergy Unknown Unknown Verified 11/29/24 09:25
eggs Allergy Unknown Rash Uncoded 11/29/24 09:25
flu shot Allergy Unknown Uncoded 11/29/24 09:25
�Medication �Instructions �Recorded �Confirmed �Type
aspirin 81 mg chewable tablet 81 mg PO DAILY #0 tabs 11/15/24 11/29/24 Rx
losartan 50 mg tablet 50 mg PO DAILY 11/15/24 11/29/24 History
ticagrelor 90 mg tablet (Brilinta) 90 mg PO BID #180 tabs 11/15/24 11/29/24 Rx
atorvastatin 80 mg tablet 80 mg PO QPM #30 tabs 11/16/24 11/29/24 Rx
Review of Systems
-
History Source: Patient
All other systems: Negative unless noted
Physical Exam
Vital Signs
Temp Pulse Resp BP Pulse Ox
100.4 F H 78 19 116/82 99
11/29/24 09:23 11/29/24 12:45 11/29/24 12:45 11/29/24 12:40 11/29/24 12:45
Lab Results
11/29/24 10:15
11/29/24 10:15
Troponin I 0.065 ng/ml H* 11/29/24 10:15
Physical Exam
General: No Apparent Distress and Comfortable
HEENT: Normocephalic, Anicteric and Moist Mucous Membranes
Respiratory: Clear and Non Labored Respirations
Cardiac: S1/S2 and Regular Rhythm
GI: Soft, Non Tender, Non Distended and Normal Bowel Sounds
Musculoskeletal: No Clubbing, No Cyanosis and No Edema
Skin: Warm and Dry
Neuro: AO x 3
Impression / Plan
-
PCP: Dr. Pierre
Cardiology: Dr. Pinedo
Assessment:
Presentation with fever
Elevated troponin
STEPHANIE
Elevated LFTs
NSTEMI with mid LAD PCI 11/15/24
R radial hematoma
Bipolar disorder, stopped taking Risperdal on his own
Echo 11/15/24: EF 58%, no WMA, normal RV size and function
Plan:
-Patient with recent admission to for NSTEMI resulting in LAD PCI 11/15/24 presents back to with complaints of fever, lightheadedness, and chest discomfort.
-trop trending down from last admission 0.065. check repeat
-EKG NSR
-currently CP free
-urgent echo ordered. echo last admission with preserved EF
-covid and flu negative. CXR without abnormality. UA not overtly positive. work up of infection per primary service.
-hold OP losartan given Cr of 1.4, was 1.0 last admission
-holding lipitor given elevated LFTs, normal last admission
-continue asa, brilinta
-d/w patient and father at bedside
Data Reviewed
-
EKG: Tracing Personally Visualized and interpreted
Radiology: Report Reviewed by me
Medical Tests (Nuc Med, Echo etc): Report Reviewed by me
Labs: Labs Reviewed by me
Old Records: Reviewed
[2024-11-29 15:34] LABS: Troponin I 0.141 ng/ml
--- NOTE | 2024-11-29 15:47 | HPS.HSE ---
Family Physician
-
Family Physician: Guzman Pierre
Chief Complaint
-
chest pain
History of Present Illness
59-year-old male PMH for NSTEMI,HTN, recently underwent cardiac catheterization resulting in mid LAD PCI presented with chest pain.he got up and was starting to get ready when he felt sensation of warmness throughout his body as well as
lightheadedness and some chest discomfort. patient stated dizzy and temp of 100.6. his chest discomfort only lasted for 45 minutes. it was non radiating and non exertional pain.denied JUDD or syncope. denied sob, runny nose, congestion, cough. denied
abdominal pain,n,v,d. denied dysuria or hematuria.
Patient received aspirin in the ER. Patient started on heparin drip. Admitting for further management
Medical History
Past Medical History
Past Medical History: Reports Other
Additional Past Medical History:
Hypertension
Obstructive sleep apnea
Past Surgical History: Reports Other
Additional Past Surgical History:
Left total hip replacement
Adenoidectomy
Social History
Tobacco: Non-smoker
Alcohol: Occasional
Drug: None
Personal: Single
Living: With Family
Family History
Family History: Not pertinent
Allergies / Home Medications
Allergies reflects when Allergies were last updated in [employer].
Home Medications with original date entered in [employer]
Allergy/Medication List:
Allergies
Allergy/AdvReac Type Severity Reaction Status Date / Time
Penicillins Allergy Unknown Unknown Verified 11/29/24 09:25
eggs Allergy Unknown Rash Uncoded 11/29/24 09:25
flu shot Allergy Unknown Uncoded 11/29/24 09:25
Home Medications
aspirin 81 mg chewable tablet 81 mg PO DAILY #0 tabs 11/15/24
losartan 50 mg tablet 50 mg PO DAILY 11/15/24
ticagrelor 90 mg tablet (Brilinta) 90 mg PO BID #180 tabs 11/15/24
atorvastatin 80 mg tablet 80 mg PO QPM #30 tabs 11/16/24
Review of Systems
-
Constitutional: Reports Fever
EENT: Reports No Symptoms
Respiratory: Reports No Symptoms
Cardiac: Reports Chest Pain
Abdomen/GI: Reports No Symptoms
: Reports No Symptoms
Musculoskeletal: Reports No Symptoms
Skin: Reports No Symptoms
Neurological: Reports Dizzy
Endocrine: Reports No Symptoms
Hematologic/Lymphatic: Reports No Symptoms
Psych: Reports No Symptoms
Physical Exam
Vital Signs
Vital Signs
Temp Pulse Resp BP Pulse Ox
100.4 F H 78 19 116/82 99
11/29/24 09:23 11/29/24 12:45 11/29/24 12:45 11/29/24 12:40 11/29/24 12:45
Physical Exam
General: Well Developed, Well Nourished and No Apparent Distress
HEENT: NormoCephalic, Moist mucous membranes and Atraumatic
Respiratory: Clear
Cardiac: S1/S2 and Regular Rhythm; No Murmur or Rub
GI: Soft, Non Tender, Non Distended and Normal Bowel Sounds; No Organomegaly
Rectal: Deferred by Provider
Musculoskeletal: No Clubbing, No Cyanosis and No Edema
Skin: No Rash
Neuro: AO x 3 and Nonfocal/grossly intact
Psych: Calm
Laboratory Results
-
11/29/24 10:15
11/29/24 10:15
Laboratory Results
Total Bilirubin 1.6 mg/dl (0.2-1.3) H 11/29/24 10:15
AST 80 U/L (17-59) H 11/29/24 10:15
ALT 67 U/L (0-50) H 11/29/24 10:15
Alkaline Phosphatase 117 U/L (38-126) 11/29/24 10:15
Troponin I 0.141 ng/ml H* D 11/29/24 14:57
Data Reviewed
-
Diagnostic Radiology: Report Reviewed by me
Lab Data: Labs Reviewed by me
Impression/Plan
-
#chest pain /recent LAD stent
# NSTEMI
#trop elevation
-heparin drip continued
-EKG NSR
-Continue to trend Trope
#acute kidney injury likely dehydration
-cr 1.4
-Hold losartan
-fluids continued
#Transaminitis
-ST 80,SLT 67
-Hold statin
-obtain US of abdomen
#fever likely viral
-COVID,FLU negative
-chest x ray negative
-Obtain UA
-obtain blood culture
Essential HTN
-Hold losartan due to STEPHANIE
#NILAY
-CPAP
DVT PPX - heparin
--- NOTE | 2024-11-29 16:02 | W.PN.UPDATE ---
Update Note
Progress Note Update
This is an addendum to H&P written by AMBULANCE MECHANIC Yanelis Jones
I saw and examined the patient.
The AMBULANCE MECHANIC's note was reviewed and I agree with the note.
Comment:
Mr. Simeon Solorio is a 59 yo man with hx NSTEMI s/p cardiac cath with PCI to mid LAD (11/15/24), Bipolar disorder who presents to the ER complaining of lightheadedness and some chest discomfort. He is found to be febrile to 100.4.
Triage VS: T 100.4, P 78, RR 19, BP 116/82, SpO2 99%
On exam patient is awake, alert in no acute distress; CV: S1, S2, RRR; chest clear, no LE sweling, no RUQ tenderness, abdomen soft and non-tender
LABS: WBC 8.9, Hg 13.1, PLT 186, Na 135, K+ 4.2, Cl 98, BUN 10, Cr 1.4, Glucose 113, T. Bili 1., AST 80, ALT 67, Alk Phos 117
Trop 0.065 --> 0.141
covid and flu negative
EKG NSR @ 76
TTE 11/29/24
CONCLUSIONS
Normal left ventricular chamber size. Normal left ventricular systolic
function. Left ventricular ejection fraction is 60-65% by visual estimate.
Normal regional wall motion. Normal left ventricular wall thickness. Diastolic
function not assessed.
Normal right ventricular size and function.
Mild mitral regurgitation.
CXR 11/29/24
IMPRESSION:
Unremarkable exam
Chest Pain
Elevated Troponin: ACS versus more likely non ischemic myocardial injury in setting of infection
Recent NSTEMI s/p PCI
Low grade Fever
Elevated Liver Enzymes
mild STEPHANIE
-possible that patient with viral infection resulting in symptoms versus ACS
-admit to telemetry
-continue to trend Troponins
-repeat TTE results above
-continue CASING TIER asa/Brilinta
-obtain RUQ US given elevated liver enzymes
-Flu, covid negative; will order blood cultures
-appreciate cardiology consult
-1L IVF
-hold CASING TIER Losartan with creatinine elevation
-hold statin with liver enzyme elevation
[2024-11-29 16:27] LABS: APTT 30.5 Sec (23.4-35.0)
[2024-11-29] MEDS: HEPARIN 4000 UNITS IV (16:51)
[2024-11-29] MEDS: HEPARIN 25000 UNITS/250 ML IV (16:52)
--- NOTE | 2024-11-29 19:32 | PTCARENOTE ---
Received pt from ED. Pt denies chest pain. PO temp 101.3. Unable to draw blood cultures. PCT attempting blood draw. Heparin drip infusing at 11 ml/hr. NSS at 100 ml/hr initiated. Right antecubital IV site infiltrated. NSS and heparin drips
on hold. IV team notified. Report given to shift boss RN.
[2024-11-29] MEDS: NSS 1000 IV (20:01)
[2024-11-29 20:20] LABS: Urine Albumin 3+ (Neg - Trace); Urine Bilirubin Negative (Negative); Urine Character Clear (Clear); Urine Color Amber; Urine Glucose Negative (Negative); Urine Ketone 3+ (Negative); Urine Leukocyte Negative (Negative); Urine Nitrite Negative (Negative); Urine Occult Blood 1+ (Negative); Urine Specific Gravity 1.015 (<1.030); Urine Urobilinogen Negative (Neg - 1+)
[2024-11-29 20:32] LABS: Urine Bacteria Few (Negative); Urine Red Blood Cell 0-2 /HPF (0-2)
[2024-11-29 20:33] LABS: Urine Mucus Many
[2024-11-29] MEDS: BRILINTA 90 MG PO (20:50)
[2024-11-29 21:21] LABS: Troponin I 0.168 ng/ml
[2024-11-29 23:15] LABS: APTT 84.9 Sec (23.4-35.0)
--- NOTE | 2024-11-29 23:23 | PTCARENOTE ---
Pt rec'd at beginning of shift in bed surrounded by family. Pt with c/o pain at LAC IV site. IV team called new iv placed in left wrist and LAC iv site pulled. blood work obtained at that time by iv team. 2nd set of blood cultures drawn with HS lab
work due to poor vein access.
heparin drip therapeutic. Pt denies cp or sob. Does c/o gas and slight discomfort mid abd. House COLORIST contacted for med order.
[2024-11-29] MEDS: MYLICON 80 MG PO (23:30)
[2024-11-30] VITALS (7 sets, daily range): BP systolic 109–123; BP diastolic 73–82; BMI 25.5
[2024-11-30] MEDS: NSS 1000 IV ×2 (04:48→15:19)
[2024-11-30 06:23] LABS: APTT 152.8 Sec (23.4-35.0)
[2024-11-30 07:17] LABS: ALT (SGPT) 222 U/L (0-50); AST (SGOT) 323 U/L (17-59); Albumin 3.8 g/dl (3.5-5.0); Alkaline Phosphatase 169 U/L (38-126); Blood Urea Nitrogen 12 mg/dl (9-20); Calcium 8.6 mg/dl (8.4-10.2); Carbon Dioxide 18 mmol/L (22-30); Chloride 99 mmol/L (98-107); Estimated Creatinine Clearance 47 ml/min; Glucose 126 mg/dl (70-99); Potassium 3.8 mmol/L (3.5-5.1); Sodium 133 mmol/L (135-145); Total Bilirubin 1.7 mg/dl (0.2-1.3); Total Protein 7.7 g/dl (6.3-8.2); eGFR 53.96
[2024-11-30] MEDS: BRILINTA 90 MG PO ×2 (07:33→20:01)
[2024-11-30] MEDS: LOW STRENGTH ASPIRIN 81 MG PO (07:33)
--- NOTE | 2024-11-30 08:14 | W.PN.UPDATE ---
Update Note
Progress Note Update
I saw and evaluated the patient. I reviewed the resident�s note and agree with findings and plan as documented in the resident�s note.
Currently denies CP/SOB.
Gen: NAD, Awake and alert
Eyes: EOMI, PERRLA, no scleral icterus.
Neck: supple.
CV: RRR, +S1/S2, no m/r/g.
Resp: CTAB, no rales, wheezes, or rhonchi.
Abd: +BS, soft, NT, ND
Skin: No rashes.
Neuro: CN 2-12 intact, non-focal.
Psych: Normal mood and affect.
11/29/24 10:00 Nasal Swab Influenza Types A & B (AMY) - Final
Negative for Influenza A & B, NAAT
Negative results must be combined with clinical observations
and patient history.
Nucleic Acid Amplification test (NAAT)performed on the
[employer] ID NOW platform.
Echo 11/29/24: EF 60-65%, nl RV sz/fxn. Mild MR.
CXR 11/29/24: Unremarkable exam
RUQ U/S: Gallbladder is slightly contracted with no evidence for gallstones. Gallbladder wall measures 3 mm, in the upper range of normal. Negative sonographic Robles's sign. Liver length is top-normal. Pancreas is unable to be confidently
visualized. Right kidney appears to have mild diffuse parenchymal loss. Right kidney also appears echogenic, a nonspecific finding suggesting medical renal disease.
Acute NSTEMI:
-presented with CP
-Recent NSTEMI s/p PCI
-trops minimally elevated and flat, peaked at 0.168
-cont heparin gtt
-cont ASA/Brilinta
-statin on hold with transaminitis
-discussed with cardiology, no cath
Fever:
-likely due to acute viral syndrome
-CXR clear
-COVID/Flu NEG
-suspect elevated LFTs due to acute viral syndrome
-follow BCxs
STEPHANIE:
-mild
-cont IVFs
FULL/heparin gtt
Total time spent on today's encounter was 50 minutes which included time spent in counseling the patient/family regarding diagnosis and treatment plan as listed above, goals of care, and symptom management. Case was discussed with nursing staff,
specialists, and care coordinators/case management. All labs and imaging personally reviewed by me. Remainder the time spent in detailed review of previous records, lab data, imaging, and other medical provider documentation.
--- NOTE | 2024-11-30 08:32 | PTCARENOTE ---
Pt received this am with no c/o of any chest pain, pressure or sob. Room air sat 98%. Heparin infusing as ordered. Pt NPO for poss cath today.
--- NOTE | 2024-11-30 09:05 | W.PN.HOSP.TC ---
Today's Communication/Plan
-
Continue IV fluid
Continue heparin drip
Check hepatitis panel
Low ISS, Accu-Cheks
Assessment / Plan
Assessment / Plan
59-year-old male with PMH of essential hypertension, bipolar disorder, NILAY, recent NSTEMI 10/2024 (with mid LAD PCI) who presented again to the hospital with chest pain. Pain was not exertional and nonradiating, lasted for 45 minutes and resolved.
Denied recent illness, nausea, vomiting, diaphoresis, SOB, cough, diarrhea, fever or chills. Flu and COVID tests were negative in the ED. Admitted to IVU on aspirin and heparin drip for further evaluation and management.
Assessment/plan:
#Presentation with chest pain
-Troponin elevated and peaked at 0.168, likely nonischemic myocardial injury vs ACS. No signs of acute infection.
-S/p recent [facility] with mid LAD LYNNE placement, compliant with medications, stent thrombosis highly unlikely.
-EKG reviewed NSR.
-TTE unremarkable.
-Continue heparin drip.
-Cardiology on board.
-No further chest pain since admission.
#Anion gap metabolic acidosis
-Check lactate
-Recent A1c 5.3.
-Urine with 3+ ketones.
-Follow BMP.
-Low ISS with Accu-Cheks.
#Acute transaminitis
-Worsening.
-Check hepatitis panel.
-Hold atorvastatin.
-Follow LFTs.
#STEPHANIE
-Serum creatinine 1.5, baseline 1.1.
-Hold losartan, avoid nephrotoxins.
-Continue IVF.
#Hyperlipidemia
-Atorvastatin on hold for transaminitis.
-RUQ US unremarkable.
-Follow LFTs.
#Fever
-Patient now afebrile, WBC count 8.9.
-CXR unremarkable.
-Follow fever curve
#Essential hypertension
-Hold losartan due to STEPHANIE.
-Follow blood pressure.
#NILAY
-CPAP
Diet: Cholesterol-lowering
DVT PPx: Heparin drip
CODE STATUS: Full code
Anticipated Discharge: 24 - 48 hours
Subjective/Interval History
-
Date of Service: November 30, 2024
I saw and evaluated this patient. He was sitting comfortably in bed in no acute cardiopulmonary distress. Reports no further chest pain or shortness of breath. Denies abdominal pain, fever, nausea or vomiting. No headaches, palpitations. He
feels okay.
Objective Data
-
Labs:
Laboratory Results
11/29/24 11/30/24
22:54 05:08
APTT 84.9 H 152.8 H*
Sodium 133 L
Potassium 3.8
Chloride 99
Carbon Dioxide 18 L
BUN 12
Creatinine 1.5 H
Glucose 126 H
Calcium 8.6
Total Bilirubin 1.7 H
AST 323 H
ALT 222 H
Alkaline Phosphatase 169 H
Vital Signs:
Vital Signs
Temp Pulse Resp BP Pulse Ox
99.4 F 76 20 121/75 100
11/30/24 07:59 11/30/24 06:15 11/30/24 07:59 11/30/24 01:59 11/30/24 07:59
I&O
11/29/24 11/30/24 12/01/24
06:59 06:59 06:59
Intake Total 240 / 240
Output Total 675 / 675
Balance -435 / -435
Review of Systems
-
History Source: Patient
All other systems: Reviewed and negative
Constitutional: Reports No Symptoms
Respiratory: Reports No Symptoms
Cardiac: Reports No Symptoms
Abdomen/GI: Reports No Symptoms
Neuro: Reports No Symptoms
Physical Exam
-
General: No Apparent Distress and Comfortable
HEENT: Negative Oxygen
Respiratory: Clear to Auscultation
Cardiac: Regular Rhythm and S1/S2; Negative Murmur or Rub
GI: Soft, Nontender, Nondistended and Normal Bowel Sounds
Musculoskeletal: No Clubbing, No Cyanosis and No Edema
Skin: Warm and Dry
Neuro: Awake, Alert, Oriented, No Motor Deficits and Nonfocal/Grossly Intact
Psych: Calm
Data Reviewed
-
Ultrasound: Report Reviewed by me and Discussed with Physician
Labs: Labs Reviewed by me and Discussed with Physician
--- NOTE | 2024-11-30 10:08 | W.PN.CARDCBS ---
Addendum entered and electronically signed by Eve Allen DO 11/30/24 11:01:
I saw and examined the patient.
The [employer]'s note was reviewed and I agree with the note.
Comment: Patient was seen and examined. No further complaints of chest pain or pressure. No further fevers. Denies cough/URI symptoms. No abdominal pain or diarrhea. No dysuria. No recent dental cleaning/care. No recent travel.
GEN: No distress, awake, alert, oriented x3
HEENT: mmm
LUNGS: CTA B/L, no wheezes/rales
CV: Reg, S1/S2, no murmur
ABD: soft, BS+, NT/ND
EXT: No cyanosis, clubbing, edema
NEURO: Gross non-focal
Plan:
Febrile illness
-Likely viral etiology with negative COVID/flu. Blood cultures no growth to date
-Currently afebrile; Tmax 101.3 overnight
-Chest x-ray NAD
-Defer to primary
-Known coronary artery disease with recent non-STEMI status post mid LAD PCI 11/15/2024
-Trop peaked at 0.168 and now trending down.
-No chest pain overnight.
-EKG sinus rhythm, and sinus rhythm on review of telemetry overnight.
-Echo completed yesterday in ER without change compared to prior
-No plan for cardiac catheterization at this time.
-Continue aspirin/Brilinta.
-Will stop IV heparin
Acute renal insufficiency/elevated transaminases
-Creatinine slightly worse at 1.5, and LFTs uptrending.
-Holding outpatient losartan and Lipitor given above
-Monitor and follow labs; avoid hypotension
-Discussed with hospitalist
Original Note:
Today's Communication / Plan
-
work up for possible infectious process per primary service
continue asa, brilinta. hold losartan, lipitor
may consider eventual repeat ischemic evaluation but not today in setting of fever overnight and as Cr rising
Impression / Plan
-
PCP: Dr. Pierre
Cardiology: Dr. Pindeo
Assessment:
Presentation with fever
Elevated troponin
STEPHANIE
Elevated LFTs
NSTEMI with mid LAD PCI 11/15/24
R radial hematoma
Bipolar disorder, stopped taking Risperdal on his own
Echo 11/15/24: EF 58%, no WMA, normal RV size and function
ECHO 11/29/2024: EF 60 to 65%, normal RV size and function, mild MR, no significant change compared to prior
Plan:
-Patient with recent admission to for NSTEMI resulting in LAD PCI 11/15/24 presents back to with complaints of fever, lightheadedness, and chest discomfort.
-Tmax of 101.3 overnight
-Trop peaked at 0.168 and now trending down. No chest pain overnight. EKG sinus rhythm, and sinus rhythm on review of telemetry overnight.
-Echo completed yesterday in ER without change compared to prior
-Creatinine slightly worse at 1.5, and LFTs uptrending. Workup per primary service. COVID and flu were negative. Chest x-ray was without abnormality. UA was not overtly positive.
-Holding outpatient losartan and Lipitor given above
-Continue aspirin and Brilinta without interruption
-Will review cath films with interventional cardiology
-Discussed with resident
Progress Note - [employer]
Subjective
Date of Service: November 30, 2024
No chest pain overnight
Objective
Labs:
11/29/24 10:15
11/30/24 05:08
Labs
Hgb 13.1 g/dL (13.0-18.0) 11/29/24 10:15
Hct 39.1 % (39.0-52.0) 11/29/24 10:15
Plt Count 186 10^3/uL (130-400) 11/29/24 10:15
APTT 152.8 Sec (23.4-35.0) H* 11/30/24 05:08
Sodium 133 mmol/L (135-145) L 11/30/24 05:08
Potassium 3.8 mmol/L (3.5-5.1) 11/30/24 05:08
BUN 12 mg/dl (9-20) 11/30/24 05:08
Creatinine 1.5 mg/dL (0.7-1.3) H 11/30/24 05:08
Glucose 126 mg/dl (70-99) H 11/30/24 05:08
Troponins
11/29/24 11/29/24 11/29/24
10:15 14:57 20:06
Troponin I 0.065 H* 0.141 H* D 0.168 H*
11/29/24
22:54
Troponin I 0.160 H*
Vital Signs and I&O:
Vital Signs
Temp Pulse Resp BP Pulse Ox
99.4 F 76 20 123/73 100
11/30/24 07:59 11/30/24 08:00 11/30/24 07:59 11/30/24 07:56 11/30/24 07:59
Vital Signs
Temp Pulse Resp BP Pulse Ox
99.4 F 76 20 123/73 100
11/30/24 07:59 11/30/24 08:00 11/30/24 07:59 11/30/24 07:56 11/30/24 07:59
Intake & Output
11/28/24 11/29/24 11/30/24 12/01/24
07:59 07:59 07:59 07:59
Intake Total 240 / 240
Output Total 675 / 675
Balance -435 / -435
Physical Exam
Physical Exam
GEN: No distress, awake, alert, oriented x3
HEENT: supple, anicteric, mmm, eomi
LUNGS: CTA B/L, no wheezes/rales
CV: Reg, S1/S2, no murmur
ABD: soft, BS+, NT/ND
EXT: No cyanosis, clubbing, edema
NEURO: Gross non-focal
SKIN: Warm, pink, dry. No rash
[2024-11-30 11:16] LABS: Direct Bilirubin 0.5 mg/dl (0.0-0.4); Lipase 215 U/L (23-300)
--- NOTE | 2024-11-30 12:19 | CM ---
CM following for DC planning needs.
Pt. known to me from prior admission in October.
Met w/ patient at bedside.
Pt. resides w/ mother/father in a private, 2 story home.
Pt. is functionally indep. w/ ADLs, mobility without the use of any assisted device.
Pt. has RX plan and uses [facility] in [place] on [address]
Anticipated DC plan is for home, no needs.
Will follow.
[2024-11-30 18:17] LABS: Glucose - Point of Care 103 mg/dl (70-99)
[2024-11-30 19:42] LABS: Hepatitis B Surface Antigen Negative (Negative)
[2024-11-30 19:45] LABS: Hepatitis A IgM Antibody Negative (Negative); Hepatitis B Core Ab, IgM Negative (Negative)
[2024-11-30 19:59] LABS: Hepatitis B Surface Antibody Negative; Hepatitis C Antibody Negative (Negative)
--- NOTE | 2024-11-30 20:37 | PTCARENOTE ---
Assumed care of the pt @ 1900. Pt is AAOx3 denies pain SR on the monitor bp stable temp 101.4. Pt offers no complaints. NSS infusing@ 100 ml/HR. Call pizarro within reach.
[2024-11-30 22:35] LABS: Glucose - Point of Care 106 mg/dl (70-99)
[2024-12-01] VITALS (7 sets, daily range): BP systolic 102–123; BP diastolic 57–87; BMI 25.6
[2024-12-01] MEDS: NSS 1000 IV (01:30)
[2024-12-01 05:21] LABS: ALT (SGPT) 355 U/L (0-50); AST (SGOT) 382 U/L (17-59); Albumin 3.2 g/dl (3.5-5.0); Alkaline Phosphatase 214 U/L (38-126); Blood Urea Nitrogen 12 mg/dl (9-20); Calcium 8.6 mg/dl (8.4-10.2); Carbon Dioxide 21 mmol/L (22-30); Chloride 105 mmol/L (98-107); Estimated Creatinine Clearance 59 ml/min; Glucose 110 mg/dl (70-99); Potassium 3.8 mmol/L (3.5-5.1); Sodium 135 mmol/L (135-145); Total Bilirubin 1.5 mg/dl (0.2-1.3); eGFR > 60.00
[2024-12-01 06:00] LABS: Hematocrit 34.3 % (39.0-52.0); Hemoglobin 11.5 g/dL (13.0-18.0); Mean Corp Hgb Conc. 33.5 g/dL (33.0-37.0); Mean Corpuscular Hgb 28.2 pg (27.0-31.0); Mean Corpuscular Volume 84.1 fL (80.0-94.0); Mean Platelet Volume 10.8 fL (7.4-10.4); Platelet Count 151 10^3/uL (130-400); Red Blood Cell Count 4.08 10^6/uL (4.70-6.10); Red Cell Dist. Width 12.3 % (11.5-14.5); White Blood Cell Count 6.1 10^3/uL (4.8-10.8)
--- NOTE | 2024-12-01 06:22 | W.PN.HOSP.TC ---
Today's Communication/Plan
-
Follow CBC
Monitor LFTs
IV fluid
ID consult
lyme serology
Follow blood cultures
Assessment / Plan
Assessment / Plan
59-year-old male with PMH of essential hypertension, bipolar disorder, NILAY, recent NSTEMI 10/2024 (with mid LAD PCI) who presented again to the hospital with chest pain. Pain was not exertional and nonradiating, lasted for 45 minutes and resolved.
Denied recent illness, nausea, vomiting, diaphoresis, SOB, cough, diarrhea, fever or chills. Flu and COVID tests were negative in the ED. Admitted to IVU on aspirin and heparin drip for further evaluation and management.
Assessment/plan:
#CAD
-S/p LAD PCI with LYNNE 11/15/2024.
-Troponin elevated and peaked at 0.168, likely nonischemic myocardial injury vs ACS.
-Reports no pain overnight.
-EKG reviewed NSR, TTE unremarkable.
-No plans for cardiac cath per cardiology.
-Heparin drip stopped.
-Continue ASA and Brilinta.
-Appreciate cardiology.
-No further chest pain since admission.
#Febrile illness
-Likely reactive vs acute viral illness
-Hepatitis panel negative.
-COVID and flu negative, blood cultures NGTD.
-Follow blood cultures and fever curve.
#Anion gap metabolic acidosis
-Check lactate
-Recent A1c 5.3.
-Urine with 3+ ketones.
-Follow BMP.
-Low ISS with Accu-Cheks.
#Acute transaminitis
-Worsening.
-Hepatitis panel negative.
-RUQ ultrasound negative for acute liver pathology.
-Check lymes serology.
-ID consult.
-Hold atorvastatin.
-Consider GI consult.
-Follow LFTs.
#STEPHANIE
-Serum creatinine 1.5, baseline 1.1.
-Hold losartan, avoid nephrotoxins.
-Continue IVF.
#Hyperlipidemia
-Atorvastatin on hold for transaminitis.
-RUQ US unremarkable.
-Follow LFTs.
#Fever
-Patient now afebrile, WBC count 8.9.
-CXR unremarkable.
-Follow fever curve
#Mild anemia
-Most likely dilutional vs hemolysis
-Haptoglobin
-Follow CBC.
#Essential hypertension
-Hold losartan due to STEPHANIE.
-Follow blood pressure.
#NILAY
-CPAP
Diet: Cholesterol-lowering
DVT PPx: Heparin drip
CODE STATUS: Full code
Data:
Abdominal ultrasound 11/29/2024:
The gallbladder is slightly contracted with no evidence for cholelithiasis. Gallbladder wall measures 3 mm, in the upper range of normal. No evidence for pericholecystic edema. Patient has a negative sonographic Robles's sign.
There is no evidence of biliary ductal dilation. The common bile duct measures 3 mm, within normal range of less than 6 mm in this 59-year-old.
Liver length is 18 cm, with top normal considered 18.0 cm. Liver echogenicity appears normal with no evidence of a focal hepatic lesion. The main portal vein is patent with normal direction of flow
The spleen appears normal with maximum dimension of 10.8 cm.
The pancreas is unable to be confidently visualized, with shadowing from overlying bowel gas.
The upper abdominal IVC and the abdominal aorta appear normal.
Right kidney length is 7.8 cm and left kidney length is 9.0 cm. The right kidney appears diffusely echogenic, a nonspecific finding suggesting medical renal disease.. There may be mild diffuse right renal parenchymal loss.
No significant abnormality of the left kidney sonographically, with no evidence for mass or pelvicalyceal dilation.
Anticipated Discharge: 24 - 48 hours
Subjective/Interval History
-
Date of Service: December 01, 2024
Patient seen and evaluated.
Comfortably in bed in no acute distress. Denies abdominal pain, chest pain, shortness of breath. He did have fever of 101.4 overnight with mild tachycardia. He also endorses mild headache but no fever today. Denies palpitations, nausea or
vomiting.
Objective Data
-
Labs:
Laboratory Results
11/30/24 12/01/24
17:50 04:12
WBC Cancelled 6.1
Hgb Cancelled 11.5 L
Hct Cancelled 34.3 L
Plt Count Cancelled 151
PT Cancelled
INR Cancelled
APTT Cancelled
Sodium Cancelled 135
Potassium Cancelled 3.8
Chloride Cancelled 105
Carbon Dioxide Cancelled 21 L
BUN Cancelled 12
Creatinine Cancelled 1.2
Glucose Cancelled 110 H
Calcium Cancelled 8.6
Total Bilirubin Cancelled 1.5 H
AST Cancelled 382 H
ALT Cancelled 355 H
Alkaline Phosphatase Cancelled 214 H
Vital Signs:
Vital Signs
Temp Pulse Resp BP Pulse Ox
98.3 F 71 16 102/87 98
12/01/24 04:05 12/01/24 04:05 12/01/24 04:05 12/01/24 04:05 12/01/24 04:05
I&O
11/29/24 11/30/24 12/01/24
06:59 06:59 06:59
Intake Total 240 / 240 1200 / 1200
Output Total 675 / 675 1000 / 1000
Balance -435 / -435 200 / 200
Review of Systems
-
History Source: Patient
All other systems: Reviewed and negative
Constitutional: Reports No Symptoms
Respiratory: Reports No Symptoms
Cardiac: Reports No Symptoms
Abdomen/GI: Reports No Symptoms
Genitourinary: Reports No Symptoms
Musculoskeletal: Reports No Symptoms
Skin: Reports No Symptoms
Neuro: Reports No Symptoms
Physical Exam
-
General: No Apparent Distress and Comfortable
HEENT: Normocephalic and Atraumatic; Negative Oxygen
Respiratory: Clear to Auscultation
Cardiac: Regular Rhythm and S1/S2; Negative Murmur or Rub
GI: Soft, Nontender, Nondistended and Normal Bowel Sounds
Musculoskeletal: No Clubbing, No Cyanosis and No Edema
Skin: Warm and Dry
Neuro: Awake, Alert, Oriented, No Motor Deficits and Nonfocal/Grossly Intact
Psych: Calm
Data Reviewed
-
Ultrasound: Report Reviewed by me and Discussed with Physician
Labs: Labs Reviewed by me and Discussed with Physician
[2024-12-01 07:31] LABS: Glucose - Point of Care 85 mg/dl (70-99)
--- NOTE | 2024-12-01 08:05 | PTCARENOTE ---
Assumed care of pt from prev nsg shift; Pt AAOx3 w/no c/o CP or SOB. Pt w/VSS w/HR in the 60's & BP 107/68 this AM. Pt afebrile this AM. Pt is SR on telemetry monitoring. Pt questioning reason for blood glucose monitoring when he is 'not diabetic &
isn't on any diabetic meds?'; this RN TT w/resident & hospitalist this AM & Accuchecks D/C'd. Pt advised. Pt w/call pizarro within reach & plan of care ongoing.
--- NOTE | 2024-12-01 08:20 | W.PN.UPDATE ---
Update Note
Progress Note Update
I saw and evaluated the patient. I reviewed the resident�s note and agree with findings and plan as documented in the resident�s note.
Currently denies CP/SOB. Reports that while walking in his room he pulled a muscle in his right flank.
Gen: NAD, Awake and alert
Eyes: EOMI, PERRLA, no scleral icterus.
Neck: supple.
CV: Remains RRR, +S1/S2, no m/r/g.
Resp: Remains CTAB, no rales, wheezes, or rhonchi.
Abd: Remains +BS, soft, NT, ND
Skin: No rashes.
Neuro: CN 2-12 intact, non-focal.
Psych: Normal mood and affect.
11/29/24 22:54 Blood/Venous Blood Culture - Preliminary
No Growth in 24 hours- Final report to follow
11/29/24 20:06 Blood/Venous Blood Culture - Preliminary
No Growth in 24 hours- Final report to follow
11/29/24 10:00 Nasal Swab Influenza Types A & B (AMY) - Final
Negative for Influenza A & B, NAAT
Negative results must be combined with clinical observations
and patient history.
Nucleic Acid Amplification test (NAAT)performed on the
[employer] platform.
Echo 11/29/24: EF 60-65%, nl RV sz/fxn. Mild MR.
CXR 11/29/24: Unremarkable exam
RUQ U/S: Gallbladder is slightly contracted with no evidence for gallstones. Gallbladder wall measures 3 mm, in the upper range of normal. Negative sonographic Robles's sign. Liver length is top-normal. Pancreas is unable to be confidently
visualized. Right kidney appears to have mild diffuse parenchymal loss. Right kidney also appears echogenic, a nonspecific finding suggesting medical renal disease.
HIDA: No scintigraphic evidence of common bile duct obstruction. Small focus of uptake of activity seen on delayed images expected to be within the gallbladder, likely confirming cystic duct patency. This could be confirmed anatomically with Abdomen
CT with coronal reformatted imaging.
Acute NSTEMI:
-presented with CP
-Recent NSTEMI s/p PCI
-trops minimally elevated and flat, peaked at 0.168
-was on heparin gtt, now off. Discussed with cardiology, no cath.
-cont ASA/Brilinta
-statin on hold with transaminitis
Sepsis, POA:
-likely due to acute viral syndrome
-CXR clear
-COVID/Flu NEG
-suspect elevated LFTs due to acute viral syndrome
-BCxs NGTD
-appreciate ID. Empiric Rocephin/Flagyl was started pending HIDA scan for concern for possible acalculous cholecystitis. HIDA scan above and without cystic duct obstruction. Case discussed with Dr. Tao and abx stopped.
STEPHANIE:
-with mild hyponatremia
-resolved with IVFs
FULL/Lovenox
--- NOTE | 2024-12-01 09:21 | CON.ID ---
Consultation
-
Date/Time Consultation Requested: 12/01/24 8:48
Date/Time Consultation Performed: 12/01/24 10:03
Requesting Provider: Dr Mercedes
Performing Provider: Dr Tao
Reason for Consultation: transaminitis
Chief Complaint / Past History
Chief Complaint
chest pain
History of Present Illness
Mr Solorio is a 59 year old male with history of CAD who presented here 11/29 for chest pain. Of note with recent cardiac cath for NSTEMI resulting in LAD PCI 11/15/24. He noted orthostasis and chest pain when going from sitting to standing, checked
his temperature and found it to be 100.6. Chest pain continued and lasted 45 minutes, without radiation. No headache, dayami syncope, shortness of breath, rhinorrhea, cough, sinus tenderness, sore throat, abdominal pain, nausea, vomiting, diarrhea,
dysuria or hematuria, ulcers or drips from the penis, new rashes or joint pains. No pets or farm animals. Spends minimal time outside and no tick bites that he can recall.
Since arrival here he was initially spiking fevers to 101.3 orally, bp stable, wbc on arrival 8.9 hgb 13,1 plt 186, L shift was present on arrival, cr initially 1.4 now 1.2 which is his baseline, hep A/B/C serologies negative, a lyme screen was
sent by the primary team, abd US: no gallstones, negative sonographic murphys, CXR: unremarkable, blood cultures x2 no growth at 24 hours, influenza and covid screens negative, lipase normal, ua no pyuria, not currently on antibiotics, ID is
consulted for assistance with management.
Past History
Additional Past Medical History:
Hypertension
Obstructive sleep apnea
Additional Past Surgical History:
Left total hip replacement
Adenoidectomy
Allergy History:
egg Allergy (Verified 11/29/24 18:20)
Rash
Influenza Virus Vaccines Allergy (Verified 11/29/24 18:20)
Unknown
Penicillins Allergy (Verified 11/29/24 18:20)
syncope
Medications Reviewed: Yes
Social History
Tobacco: Non-Smoker
Alcohol: Occasional
Drug: None
Family History
Family History: Not Pertinent
Review of Systems
Review of Systems
General: Fever and Chills
All systems: All other systems were reviewed and were negative
Vital Signs
Temp Pulse Resp BP Pulse Ox
98.4 F 66 16 107/68 99
12/01/24 07:26 12/01/24 07:45 12/01/24 07:26 12/01/24 07:28 12/01/24 07:26
Physical Exam
Physical Exam
Constitutional: No Acute Distress
Cardiovascular: Regular Rate and S1/S2; Negative Murmur or Rub
Pulmonary: Clear and Symmetric; Negative Wheezes, Rales or Rhonchi
Gastrointestinal: Soft, Non Tender, Non Distended and Normal Bowel Sounds
Genito-Urinary: Negative Suprapubic Tenderness
Skin: Warm and Dry; Negative Rash or Jaundice
Lab / Diagnostic Study Results
12/01/24 04:12
12/01/24 04:12
Abs Immat Gran (auto) Cancelled 11/30/24 17:50
Absolute Neuts (auto) Cancelled 11/30/24 17:50
Absolute Lymphs (auto) Cancelled 11/30/24 17:50
Absolute Monos (auto) Cancelled 11/30/24 17:50
Absolute Basos (auto) Cancelled 11/30/24 17:50
Immature Gran % Cancelled 11/30/24 17:50
Neutrophils % Cancelled 11/30/24 17:50
Lymphocytes % Cancelled 11/30/24 17:50
Monocytes % Cancelled 11/30/24 17:50
Eosinophils % Cancelled 11/30/24 17:50
Basophils % Cancelled 11/30/24 17:50
PT Cancelled 11/30/24 17:50
INR Cancelled 11/30/24 17:50
Lactic Acid Cancelled 11/30/24 10:48
Ur Squamous Epith Cells 3-5 /LPF (Few) 11/29/24 19:58
Microbiology Results
Micro:
11/29/24 22:54 Blood Culture - Preliminary
Blood/Venous No Growth in 24 hours- Final report to follow
11/29/24 20:06 Blood Culture - Preliminary
Blood/Venous No Growth in 24 hours- Final report to follow
11/29/24 10:00 Influenza Types A & B (AMY) - Final
Nasal Swab Negative for Influenza A & B, NAAT
Negative results must be combined with clinical observations
and patient history.
Nucleic Acid Amplification test (NAAT)performed on the
[employer] platform.
Assessment / Plan
Fever
Transaminitis
Report of penicillin allergy - syncope
- CXR nonrevealing
- UA without pyuria
- influenza and covid ags negative
- blood cultures x2 no growth to date
- note transaminitis with elevated alk phos
- hep A/B/C serologies negative
- abd US: nonrevealing
- will order HIDA scan, acalcuous cholecystitis does sometimes occur in outpatients
- lipase normal
- lyme and babesia smear were sent
- can consider GI evaluation if not resolving
- start ceftraixone/metronidazole pending HIDA scan
--- NOTE | 2024-12-01 09:33 | W.PN.CARDCBS ---
Addendum entered and electronically signed by Eve Allen DO 12/01/24 11:31:
I saw and examined the patient.
The Song And Dance Performer's note was reviewed and I agree with the note.
Comment: Patient was seen and examined. No chest pain, shortness of breath or cough. Remains febrile of unclear etiology. No rashes. No abdominal pain, nausea vomiting. States that he did have some loose stool overnight that was nonbloody. He
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 No pets.
General: No acute distress, AAOX3
Heart: Regular, positive S1/S2,, No murmur
Lungs: CTA b/l, negative wheezes/rales/rhonchi
Abd: Positive BS, NT/ND, neg rebound/rigidity/guarding
Ext: no edema
Neuro: nonfocal
Plan:
Febrile illness/elevated transaminases, unclear etiology
-ID consulted
-CXR nonrevealing
-UA without pyuria
-influenza and covid ags negative
- blood cultures x2 no growth to date
-Empiric IV antibiotics
-Consider GI evaluation
-Known coronary artery disease with recent non-STEMI status post mid LAD PCI 11/15/2024
-Trop peaked at 0.168 and now trending down.
-No chest pain
-EKG sinus rhythm, and sinus rhythm on review of telemetry overnight.
-Echo completed 3/5 in ER without change compared to prior
-No plan for cardiac catheterization at this time.
-Continue aspirin/Brilinta.
Acute renal insufficiency/
-Creatinine improved with IVF, 1.2
- Hold outpatient losartan
Elevated transaminases
-Lipitor held
-hep A/B/C serologies negative; lipase normal
-abd US: nonrevealing
-Consider GI evaluation
No additional cardiac recommendations
Will arrange for cardiac follow-up following this hospitalization
Will sign off, recall if needed
Original Note:
Today's Communication / Plan
-
Continue aspirin, Brilinta
Losartan stopped
Holding statin given elevated LFTs
Consider GI evaluation
Outpatient cardiac follow-up arranged
Impression / Plan
-
PCP: Dr. Pierre
Cardiology: Dr. Pinedo
Assessment:
Presentation with fever
Elevated troponin
STEPHANIE
Elevated LFTs
NSTEMI with mid LAD PCI 11/15/24
R radial hematoma
Bipolar disorder, stopped taking Risperdal on his own
Echo 11/15/24: EF 58%, no WMA, normal RV size and function
ECHO 11/29/2024: EF 60 to 65%, normal RV size and function, mild MR, no significant change compared to prior
Plan:
-Patient with recent admission to for NSTEMI resulting in LAD PCI 11/15/24 presents back to with complaints of fever, lightheadedness, and chest discomfort.
-COVID and flu negative on admission
-Trope peaked at 0.168 and trending down. No chest pain in last 48 hours
-Remains in sinus rhythm on review of telemetry without acute ST changes/abnormalities by review of EKG
-Repeat echo 11/29 with preserved EF and no significant change compared to prior
-Creatinine improved to 1.2 status post IV fluid and with holding outpatient losartan. Blood pressure stable
-Remains with fever overnight and LFTs uptrending. Hepatitis panel negative. Abdominal ultrasound without acute abnormalities. Discussed with resident 12/01. Consider GI eval and possibly ID eval
-Outpatient statin remains on hold with elevated LFTs at present. Eventually resume
-Continue aspirin, Brilinta without interruption
-Outpatient cardiac follow-up arranged
-Will plan to sign off
Progress Note - Technical Support Manager
Subjective
Date of Service: December 01, 2024
Denies chest pain overnight.
Objective
Labs:
12/01/24 04:12
12/01/24 04:12
Labs
Hgb 11.5 g/dL (13.0-18.0) L 12/01/24 04:12
Hct 34.3 % (39.0-52.0) L 12/01/24 04:12
Plt Count 151 10^3/uL (130-400) 12/01/24 04:12
PT Cancelled 11/30/24 17:50
INR Cancelled 11/30/24 17:50
APTT Cancelled 11/30/24 17:50
Sodium 135 mmol/L (135-145) 12/01/24 04:12
Potassium 3.8 mmol/L (3.5-5.1) 12/01/24 04:12
BUN 12 mg/dl (9-20) 12/01/24 04:12
Creatinine 1.2 mg/dL (0.7-1.3) 12/01/24 04:12
Glucose 110 mg/dl (70-99) H 12/01/24 04:12
Troponins
11/29/24 11/29/24 11/29/24
10:15 14:57 20:06
Troponin I 0.065 H* 0.141 H* D 0.168 H*
11/29/24 11/30/24
22:54 17:50
Troponin I 0.160 H* Cancelled
Vital Signs and I&O:
Vital Signs
Temp Pulse Resp BP Pulse Ox
98.4 F 66 16 107/68 99
12/01/24 07:26 12/01/24 07:45 12/01/24 07:26 12/01/24 07:28 12/01/24 07:26
Vital Signs
Temp Pulse Resp BP Pulse Ox
98.4 F 66 16 107/68 99
12/01/24 07:26 12/01/24 07:45 12/01/24 07:26 12/01/24 07:28 12/01/24 07:26
Intake & Output
11/29/24 11/30/24 12/01/24 12/02/24
07:59 07:59 07:59 07:59
Intake Total 240 / 240 1200 / 1200
Output Total 675 / 675 1000 / 1000
Balance -435 / -435 200 / 200
Physical Exam
Physical Exam
GEN: No distress, awake, alert, oriented x3
HEENT: supple, anicteric, mmm, eomi
LUNGS: CTA B/L, no wheezes/rales
CV: Reg, S1/S2, no murmur
ABD: soft, BS+, NT/ND
EXT: No cyanosis, clubbing, edema
NEURO: Gross non-focal
SKIN: Warm, pink, dry. No rash
[2024-12-01] MEDS: BRILINTA 90 MG PO ×2 (09:53→21:06)
[2024-12-01] MEDS: LOW STRENGTH ASPIRIN 81 MG PO (09:53)
--- NOTE | 2024-12-01 10:25 | CM ---
CM following for DC planning needs.
Met w/ patient at bedside. Pt. reports that he is feeling well.
Goal is for home w/ parents, no antic. needs.
Will remain avail.
--- NOTE | 2024-12-01 10:47 | PN.CDI ---
CDI
- -
CDI:
Physician Documentation Request
Admit Date: 11/29/24 16:23
Dear Doctor Daren,
Please review the following and provide your response in the progress notes.
Clinical Indicators:
Pt admitted with chest pain, fever, and STEPHANIE
11/30 Progress note: 'Fever: -likely due to acute viral syndrome...-suspect elevated LFTs due to acute viral syndrome'
Selected Entries
11/29/24
09:23 11/29/24
16:15 11/29/24
18:14
Temp 100.4 F H 101.3 F H
Pulse 105
11/29/24
20:45 11/30/24
19:30 11/30/24
19:59
Temp 101.4 F H
Pulse 107 110
Please clarify which of the following most accurately describes the status of the patient's infection:
Sepsis, (Viral)
- Systemic manifestations of infection, with 2 or more SIRS criteria which include:
- Fever >100.4 degrees F or hypothermia < 96.8 degrees F
- Leukocytosis - WBC > 12,000 or leukopenia - WBC < 4,000 or > 10% bands
- Tachycardia > 90 beats per minute
- Tachypnea - RR > 20 breaths per minute or PaCO2 , 32mmHg
Source: Merck Manual 2012
- Indicate the known or suspected organism
Acute viral syndrome only, Without Systemic Illness
Other
Use of terms such as suspected, likely, concern for, or probable (associated with a specific diagnosis that is being evaluated, monitored, or treated as if it exists) are acceptable and can be coded in the inpatient setting, when documented at the
time of discharge.
Thank you,
Maegan Stinson RN, BSN
CDI Specialist
[place] [facility]
Please use your independent medical judgment in providing your response.
--- NOTE | 2024-12-01 10:50 | PTCARENOTE ---
Pt to [facility] for HIDA scan; taken by volunteer on a stretcher.
[2024-12-01] MEDS: LOVENOX 40 MG SC (17:46)
[2024-12-01] MEDS: TYLENOL 650 MG PO (17:46)
--- NOTE | 2024-12-01 19:59 | PTCARENOTE ---
Assumed care of the pt @ 1900. Pt is AAOx3 denies pain. SR on the monitor VSS. Pt is independent in the room. Call pizarro within reach.
[2024-12-02] VITALS (8 sets, daily range): BP systolic 110–128; BP diastolic 72–81; BMI 25.6
[2024-12-02] MEDS: TYLENOL 650 MG PO (04:52)
[2024-12-02 05:29] LABS: Hematocrit 35.6 % (39.0-52.0); Mean Corp Hgb Conc. 33.7 g/dL (33.0-37.0); Mean Corpuscular Hgb 28.2 pg (27.0-31.0); Mean Corpuscular Volume 83.6 fL (80.0-94.0); Mean Platelet Volume 11.3 fL (7.4-10.4); Platelet Count 144 10^3/uL (130-400); Red Blood Cell Count 4.26 10^6/uL (4.70-6.10); Red Cell Dist. Width 12.5 % (11.5-14.5); White Blood Cell Count 5.4 10^3/uL (4.8-10.8)
[2024-12-02 06:11] LABS: ALT (SGPT) 373 U/L (0-50); AST (SGOT) 362 U/L (17-59); Albumin 3.3 g/dl (3.5-5.0); Alkaline Phosphatase 279 U/L (38-126); Blood Urea Nitrogen 13 mg/dl (9-20); Calcium 8.8 mg/dl (8.4-10.2); Carbon Dioxide 24 mmol/L (22-30); Chloride 104 mmol/L (98-107); Estimated Creatinine Clearance 64 ml/min; Glucose 103 mg/dl (70-99); Potassium 4.2 mmol/L (3.5-5.1); Sodium 136 mmol/L (135-145); Total Bilirubin 1.7 mg/dl (0.2-1.3); Total Protein 7.3 g/dl (6.3-8.2); eGFR > 60.00
[2024-12-02] MEDS: LOW STRENGTH ASPIRIN 81 MG PO (08:17)
[2024-12-02] MEDS: BRILINTA 90 MG PO ×2 (08:17→19:38)
--- NOTE | 2024-12-02 09:59 | W.PN.HOSP.TC ---
Addendum entered and electronically signed by Jasper Jacobsen MD 12/02/24 15:19:
I saw and evaluated the patient. I reviewed the resident�s note and agree with findings and plan as documented in the resident�s note except for changes in my documentation
Addendum entered and electronically signed by Jasper Jacobsen MD 12/02/24 15:18:
59-year-old male presented with chest pain. Patient had recent cath for non-STEMI with the LAD PCI on 11/15/2024. He also had a fever of 101 with elevated LFTs
CVS: S1-S2 normal
Chest: CTA B/L
Abdomen: Soft, NT / Bowel sounds present
Extremities: No edema, normal pulses
# Fever with elevated transaminases
So far workup is negative likely secondary to viral syndrome
Chest x-ray unremarkable
COVID and influenza negative
Blood cultures negative
Urine analysis-no infection
Lyme testing and Babesia smear sent
HIDA scan negative for obstruction
Hepatitis panel negative-patient needs to be vaccinated against hepatitis B as outpatient
Hold statin
Ultrasound without any acute changes except gallbladder slightly contracted. CBD normal size. Liver size top normal
Infectious disease consultation appreciated
Consult GI
May need Doppler USS. Await GI
# STEPHANIE with mild hyponatremia-resolved with IV fluids-holding losartan
# Coronary artery disease with recent NON-STEMI with cath and LAD stent-continue aspirin, Brilinta. Hold losartan and statin
# DVT prophylaxis-Lovenox
# Full code
Original Note:
Today's Communication/Plan
-
Hold atorvastatin
GI consult
Follow BMP
Assessment / Plan
Assessment / Plan
59-year-old male with PMH of essential hypertension, bipolar disorder, NILAY, recent NSTEMI 10/2024 (with mid LAD PCI) who presented again to the hospital with chest pain. Pain was not exertional and nonradiating, lasted for 45 minutes and resolved.
Denied recent illness, nausea, vomiting, diaphoresis, SOB, cough, diarrhea, fever or chills. Flu and COVID tests were negative in the ED. Admitted to IVU on aspirin and heparin drip for further evaluation and management.
Assessment/plan:
#Acute transaminitis
-Family history of lupus, suspect autoimmune hepatitis vs CMV.
-History of mononucleosis in the past, likely immune to EBV.
-Lipase normal.
-Hepatitis panel, flu and COVID all negative.
-RUQ ultrasound negative for acute liver pathology.
-HIDA scan with no evidence of CBD obstruction.
-Lyme and Babesia smear negative.
-Lyme serology pending.
-Appreciate ID.
-GI consult.
-Hold atorvastatin.
-Hep B vaccination series, patient not immune.
-Follow LFTs.
#CAD
-S/p LAD PCI with LYNNE 11/15/2024.
-Troponin elevated and peaked at 0.168, likely nonischemic myocardial injury vs ACS.
-Reports no pain overnight.
-EKG reviewed NSR, TTE unremarkable.
-No plans for cardiac cath per cardiology.
-Heparin drip stopped.
-Continue ASA and Brilinta.
-Appreciate cardiology.
-No further chest pain since admission.
#Febrile illness
-Fever resolved.
-Likely reactive vs acute viral illness
-Follow blood cultures and fever curve.
#Anion gap metabolic acidosis
-Resolved
#STEPHANIE
-Creatinine back to baseline 1.1.
-Continue IVF.
#Hyperlipidemia
-Atorvastatin on hold for transaminitis.
#Mild anemia
-Most likely dilutional vs hemolysis.
-Check haptoglobin.
-Follow CBC.
#Essential hypertension
-BP stable.
-Stop losartan.
-Follow blood pressure.
#NILAY
-CPAP
Diet: Cholesterol-lowering
DVT PPx: Heparin drip
CODE STATUS: Full code
Data:
Abdominal ultrasound 11/29/2024:
The gallbladder is slightly contracted with no evidence for cholelithiasis. Gallbladder wall measures 3 mm, in the upper range of normal. No evidence for pericholecystic edema. Patient has a negative sonographic Robles's sign.
There is no evidence of biliary ductal dilation. The common bile duct measures 3 mm, within normal range of less than 6 mm in this 59-year-old.
Liver length is 18 cm, with top normal considered 18.0 cm. Liver echogenicity appears normal with no evidence of a focal hepatic lesion. The main portal vein is patent with normal direction of flow
The spleen appears normal with maximum dimension of 10.8 cm.
The pancreas is unable to be confidently visualized, with shadowing from overlying bowel gas.
The upper abdominal IVC and the abdominal aorta appear normal.
Right kidney length is 7.8 cm and left kidney length is 9.0 cm. The right kidney appears diffusely echogenic, a nonspecific finding suggesting medical renal disease.. There may be mild diffuse right renal parenchymal loss.
No significant abnormality of the left kidney sonographically, with no evidence for mass or pelvicalyceal dilation.
Anticipated Discharge: 24 - 48 hours
Subjective/Interval History
-
Date of Service: December 02, 2024
I saw and evaluated patient. Sitting comfortably in bed in no acute distress. Denies chest pain, shortness of breath, abdominal pain, nausea, vomiting, diarrhea, fever, chills. Inquiring when he can go home.
Objective Data
-
Labs:
Laboratory Results
12/02/24
05:05
WBC 5.4
Hgb 12.0 L
Hct 35.6 L
Plt Count 144
Sodium 136
Potassium 4.2
Chloride 104
Carbon Dioxide 24
BUN 13
Creatinine 1.1
Glucose 103 H
Calcium 8.8
Total Bilirubin 1.7 H
AST 362 H
ALT 373 H
Alkaline Phosphatase 279 H
Vital Signs:
Vital Signs
Temp Pulse Resp BP Pulse Ox
97.7 F 63 18 120/75 100
12/02/24 08:40 12/02/24 08:00 12/02/24 08:40 12/02/24 04:56 12/02/24 08:40
I&O
12/01/24 12/02/24 12/03/24
06:59 06:59 07:59
Intake Total 1200 / 1200 830 / 830
Output Total 1000 / 1000 800 / 800
Balance 200 / 200 30 / 30
Review of Systems
-
History Source: Patient
All other systems: Reviewed and negative
Constitutional: Reports No Symptoms
Respiratory: Reports No Symptoms
Cardiac: Reports No Symptoms
Abdomen/GI: Reports No Symptoms
Genitourinary: Reports No Symptoms
Musculoskeletal: Reports No Symptoms
Skin: Reports No Symptoms
Neuro: Reports No Symptoms
Physical Exam
-
General: No Apparent Distress and Comfortable
HEENT: Normocephalic and Atraumatic; Negative Oxygen
Respiratory: Clear to Auscultation
Cardiac: Regular Rhythm and S1/S2; Negative Murmur or Rub
GI: Soft, Nontender, Nondistended and Normal Bowel Sounds
Musculoskeletal: No Clubbing, No Cyanosis and No Edema
Skin: Warm and Dry
Neuro: Awake, Alert, Oriented, No Motor Deficits and Nonfocal/Grossly Intact
Psych: Calm
Data Reviewed
-
Labs: Labs Reviewed by me, Discussed with Physician and Discussed with Nurse
--- NOTE | 2024-12-02 11:02 | W.PN.ID1 ---
Date of Service
Date of Service: December 02, 2024
Today's Communication
Observe off abx
Assessment / Plan
Fever resolved
Transaminitis
Report of penicillin allergy - syncope
- CXR nonrevealing
- UA without pyuria
- influenza and covid ags negative
- blood cultures x2 no growth to date
- note transaminitis with elevated alk phos
- hep A/B/C serologies negative
- abd US: nonrevealing
-HIDA scan - no CBD obstruction
- lipase normal
- lyme and babesia smear negative
- pt reports had mononucleosis in the past, therefore EBV ruled out.
- ? from recent atorvastatin
- can consider GI evaluation if not resolving
-Observe off abx.
Chief Complaint
-: Other (elevated LFT's)
Subjective / Review of Systems
Feels well. No abd pain. No N/V/D.
Vital Signs / Physical Exam
Vital Signs
Vital Signs
Temp Pulse Resp BP Pulse Ox
97.7 F 63 18 120/75 100
12/02/24 08:40 12/02/24 08:00 12/02/24 08:40 12/02/24 04:56 12/02/24 08:40
Physical Exam
Constitutional: No Acute Distress and Comfortable
Cardiovascular: Regular Rate and S1/S2
Pulmonary: Clear
Gastrointestinal: Soft, Non Tender, Non Distended and Normal Bowel Sounds
Genito-Urinary: Negative CVA Tenderness
Extremities: Negative Edema
Neurological: AO x 3
Objective Data
Lab Data
Lab Results
12/02/24 05:05
12/02/24 05:05
PT Cancelled 11/30/24 17:50
INR Cancelled 11/30/24 17:50
APTT Cancelled 11/30/24 17:50
Estimated Creat Clear 64 ml/min 12/02/24 05:05
Lactic Acid Cancelled 11/30/24 10:48
Total Bilirubin 1.7 mg/dl (0.2-1.3) H 12/02/24 05:05
AST 362 U/L (17-59) H 12/02/24 05:05
ALT 373 U/L (0-50) H 12/02/24 05:05
Alkaline Phosphatase 279 U/L (38-126) H 12/02/24 05:05
Most recent labs reviewed.
Micro Results:
11/29/24 22:54 Blood Culture - Preliminary
Blood/Venous No Growth in 48 hours- Final report to follow
11/29/24 20:06 Blood Culture - Preliminary
Blood/Venous No Growth in 48 hours- Final report to follow
12/01/24 10:10 Blood Parasites Smear - Final
Blood/Venous
11/29/24 10:00 Influenza Types A & B (AMY) - Final
Nasal Swab Negative for Influenza A & B, NAAT
Negative results must be combined with clinical observations
and patient history.
Nucleic Acid Amplification test (NAAT)performed on the
[employer] platform.
--- NOTE | 2024-12-02 16:27 | PTCARENOTE ---
Assessment stable as documented - pt without complaints. OOB most of day - pending GI consult
[2024-12-02] MEDS: LOVENOX 40 MG SC (17:55)
--- NOTE | 2024-12-03 00:02 | PTCARENOTE ---
Received patient at change of shift. SR on the monitor, HR in the 60s. No complaints from pt at this time, call pizarro within reach.
[2024-12-03 04:05] VITALS: BP 92/74
[2024-12-03 04:24] VITALS: BMI 25.5
[2024-12-03 04:58] LABS: Hematocrit 35.1 % (39.0-52.0); Hemoglobin 11.8 g/dL (13.0-18.0); Mean Corp Hgb Conc. 33.6 g/dL (33.0-37.0); Mean Corpuscular Volume 83.2 fL (80.0-94.0); Mean Platelet Volume 11.5 fL (7.4-10.4); Platelet Count 164 10^3/uL (130-400); Red Blood Cell Count 4.22 10^6/uL (4.70-6.10); Red Cell Dist. Width 12.5 % (11.5-14.5); White Blood Cell Count 5.7 10^3/uL (4.8-10.8)
--- NOTE | 2024-12-03 05:47 | CON.GI ---
Consultation
-
Date/Time Consultation Requested: 12/02/24 at 1pm
Date/Time Consultation Performed: 12/03/24 at 5pm
Requesting Provider: adalid
Performing Provider: pita
Reason for Consultation: abnormal lfts
Medical History
Chief Complaint / HPI
Chief Complaint: abnl lfts
History of Present Illness:
This patient is a 59-year-old man with a history of coronary artery disease with a recent non-STEMI with LAD PCI 11/15/24, with a history of CHF. He was readmitted with chest pain and fevers. Cardiac workup was negative but he remained febrile. He
did have a workup by infectious disease that has been negative. He denies alcohol use, liver disease, hepatitis, family history of liver disease. He does state that prior to coming in he also was dizzy and lightheaded with his symptoms. He has no
GI history. He has never had a colonoscopy but did have a negative Cologuard. He currently no longer has chest pain or any other symptoms. Workup has been negative for hepatitis. His ultrasound and HIDA was normal.
Past Medical History
Past Medical History: Other (Hypertension, obstructive sleep apnea)
Past Surgical History: Orthopedic (left hip replacement)
Social History
Tobacco: Non-Smoker
Alcohol: None
Family History
Family History: Reviewed & Not Pertinent
Allergies / Home Medications
Allergy/AdvReac Type Severity Reaction Status Date / Time
egg Allergy Rash Verified 11/29/24 18:20
Influenza Virus Vaccines Allergy Unknown Verified 11/29/24 18:20
Penicillins Allergy syncope Verified 11/29/24 18:20
�Medication �Instructions �Recorded
aspirin 81 mg chewable tablet 81 mg PO DAILY #0 tabs 11/15/24
losartan 50 mg tablet 50 mg PO DAILY 11/15/24
ticagrelor 90 mg tablet (Brilinta) 90 mg PO BID #180 tabs 11/15/24
atorvastatin 80 mg tablet 80 mg PO QPM #30 tabs 11/16/24
Review of Systems
-
All other systems: A 12 pt ROS was Negative except as stated above in HPI
Vital Signs
Temp Pulse Resp BP Pulse Ox
98.1 F 63 18 112/72 100
12/03/24 04:24 12/03/24 00:15 12/03/24 04:24 12/02/24 22:43 12/03/24 04:24
Physical Exam
Exam
General: No Apparent Distress
Cardiac: S1/S2
GI: Soft, Non Tender and Organomegaly (mild hepatomegaly)
Skin: Warm
Neuro: AO x 3
Psych: Calm
Results
WBC 5.7 10^3/uL (4.8-10.8) 12/03/24 04:14
Hgb 11.8 g/dL (13.0-18.0) L 12/03/24 04:14
Hct 35.1 % (39.0-52.0) L 12/03/24 04:14
MCV 83.2 fL (80.0-94.0) 12/03/24 04:14
Plt Count 164 10^3/uL (130-400) 12/03/24 04:14
Absolute Neuts (auto) Cancelled 11/30/24 17:50
PT Cancelled 11/30/24 17:50
INR Cancelled 11/30/24 17:50
APTT Cancelled 11/30/24 17:50
Sodium 136 mmol/L (135-145) 12/02/24 05:05
Potassium 4.2 mmol/L (3.5-5.1) 12/02/24 05:05
Chloride 104 mmol/L (98-107) 12/02/24 05:05
Carbon Dioxide 24 mmol/L (22-30) 12/02/24 05:05
BUN 13 mg/dl (9-20) 12/02/24 05:05
Creatinine 1.1 mg/dL (0.7-1.3) 12/02/24 05:05
Calcium 8.8 mg/dl (8.4-10.2) 12/02/24 05:05
Total Bilirubin 1.7 mg/dl (0.2-1.3) H 12/02/24 05:05
AST 362 U/L (17-59) H 12/02/24 05:05
ALT 373 U/L (0-50) H 12/02/24 05:05
Alkaline Phosphatase 279 U/L (38-126) H 12/02/24 05:05
Lipase 215 U/L (23-300) 11/30/24 05:08
Hepatitis A IgM Ab Negative (Negative) 11/30/24 10:30
Hep Bs Antibody Negative 11/30/24 10:30
Hep B Core IgM Ab Negative (Negative) 11/30/24 10:30
Hepatitis C Antibody Negative (Negative) 11/30/24 10:30
Assessment / Plan
-
This patient is a 59-year-old man who has a history of coronary artery disease and a recent NSTEMI with PCI of the LAD. He also has had CHF and did have dizziness and lightheadedness prior to admission. Most likely this is due to passive
congestion and should improve on its own. He has had a ID workup which has been negative. This includes hepatitis screen that was negative. For now we will do the following:
1. follow LFTs which I will order for this morning
2. check autoimmune panel, AAT, iron studies
3. Likely will improve and may just be a part of the underlying systemic process that is being investigated.
-
-
Thank you for consultation and allowing me to participate in the patient's care. Please call the proration clerk GI physician during the after hours with any questions or concerns.
[2024-12-03 07:12] LABS: ALT (SGPT) 385 U/L (0-50); AST (SGOT) 277 U/L (17-59); Albumin 3.7 g/dl (3.5-5.0); Alkaline Phosphatase 343 U/L (38-126); Blood Urea Nitrogen 9 mg/dl (9-20); Calcium 9.1 mg/dl (8.4-10.2); Carbon Dioxide 21 mmol/L (22-30); Chloride 103 mmol/L (98-107); Estimated Creatinine Clearance 71 ml/min; Glucose 93 mg/dl (70-99); Iron 100 ug/dl (49-181); Potassium 3.8 mmol/L (3.5-5.1); Sodium 136 mmol/L (135-145); Total Bilirubin 1.7 mg/dl (0.2-1.3); Total Protein 7.7 g/dl (6.3-8.2); eGFR > 60.00
[2024-12-03 07:22] LABS: Percent Saturation 42 % (20-50); Total Iron Binding Capacity 238 ug/dl (261-462)
--- NOTE | 2024-12-03 07:42 | W.PN.HOSP.TC ---
Addendum entered and electronically signed by Jasper Jacobsen MD 12/03/24 13:46:
I saw and evaluated the patient. I reviewed the resident�s note and agree with findings and plan as documented in the resident�s note except changes in my documentation.
59-year-old male presented with chest pain. Patient had recent cath for non-STEMI with the LAD PCI on 11/15/2024. He also had a fever of 101 with elevated LFTs
Mild pain right lateral back when he walks vaugley.
CVS: S1-S2 normal
Chest: CTA B/L
Abdomen: Soft, NT / Bowel sounds present
Extremities: No edema, normal pulses
No tenderness in spine.
# Fever with elevated transaminases
So far workup is negative likely secondary to viral syndrome
Chest x-ray unremarkable
COVID and influenza negative
Blood cultures negative
Urine analysis-no infection
Lyme testing and Babesia smear sent-Neg
HIDA scan negative for obstruction
Hepatitis panel negative-patient needs to be vaccinated against hepatitis B as outpatient
Hold statin
Ultrasound without any acute changes except gallbladder slightly contracted. CBD normal size. Liver size top normal
Infectious disease consultation appreciated
GI consulted
Check Doppler USS.
Check Sed rate, CRP, C3 C4 , ANDRA pending
Mother H/O Lupus
# STEPHANIE with mild hyponatremia-resolved with IV fluids-holding losartan as BP is soft.
# Coronary artery disease with recent NON-STEMI with cath and LAD stent-continue aspirin, Brilinta. Hold losartan and statin
# DVT prophylaxis-Lovenox
# Full code
OK for med surg
Original Note:
Today's Communication/Plan
-
Follow LFTs
Abdominal Doppler ultrasound
Check ESR, CRP, C4, C3
Downgrade to MedSurg
Assessment / Plan
Assessment / Plan
59-year-old male with PMH of essential hypertension, bipolar disorder, NILAY, recent NSTEMI 10/2024 (with mid LAD PCI) who presented again to the hospital with chest pain. Pain was not exertional and nonradiating, lasted for 45 minutes and resolved.
Denied recent illness, nausea, vomiting, diaphoresis, SOB, cough, diarrhea, fever or chills. Flu and COVID tests were negative in the ED. Admitted to IVU on aspirin and heparin drip for further evaluation and management.
Assessment/plan:
#Acute transaminitis
-Family history of lupus, suspect autoimmune hepatitis vs CMV.
-History of mononucleosis in the past, likely immune to EBV.
-Lipase normal, Hepatitis panel, flu and COVID all negative.
-RUQ ultrasound, HIDA scan negative for acute liver pathology.
-Iron studies normal.
-Lyme and Babesia smear negative.
-Lyme serology, celiac antibodies pending.
-Abdominal Doppler ultrasound with appropriate directional flow.
-Check ESR, CRP, C4, C3.
-Appreciate ID.
-GI following.
-Hold atorvastatin.
-Ultimately Hep B vaccination series outpatient
-Follow LFTs.
-Downgrade to MedSur.
#CAD
-Stable, no chest pain overnight.
-S/p LAD PCI with LYNNE 11/15/2024.
-Troponin elevated and peaked at 0.168, likely nonischemic myocardial injury vs ACS.
-EKG reviewed NSR, TTE unremarkable.
-No plans for cardiac cath per cardiology.
-Heparin drip stopped.
-Continue ASA and Brilinta.
-Appreciate cardiology.
#Febrile illness
-Fever resolved.
-Likely reactive vs acute viral illness
-Follow blood cultures and fever curve.
#Anion gap metabolic acidosis
-Resolved
#STEPHANIE
-Creatinine back to baseline 1.0.
#Hyperlipidemia
-Atorvastatin on hold for transaminitis.
#Mild anemia
-Most likely dilutional vs hemolysis.
-Haptoglobin pending.
-Follow CBC.
#Essential hypertension
-BP stable.
-Stop losartan.
-Follow blood pressure.
#NILAY
-CPAP @[facility]
Diet: Cholesterol-lowering
DVT PPx: Heparin drip
CODE STATUS: Full code
Data:
Abdominal ultrasound 11/29/2024:
The gallbladder is slightly contracted with no evidence for cholelithiasis. Gallbladder wall measures 3 mm, in the upper range of normal. No evidence for pericholecystic edema. Patient has a negative sonographic Robles's sign.
There is no evidence of biliary ductal dilation. The common bile duct measures 3 mm, within normal range of less than 6 mm in this 59-year-old.
Liver length is 18 cm, with top normal considered 18.0 cm. Liver echogenicity appears normal with no evidence of a focal hepatic lesion. The main portal vein is patent with normal direction of flow
The spleen appears normal with maximum dimension of 10.8 cm.
The pancreas is unable to be confidently visualized, with shadowing from overlying bowel gas.
The upper abdominal IVC and the abdominal aorta appear normal.
Right kidney length is 7.8 cm and left kidney length is 9.0 cm. The right kidney appears diffusely echogenic, a nonspecific finding suggesting medical renal disease.. There may be mild diffuse right renal parenchymal loss.
No significant abnormality of the left kidney sonographically, with no evidence for mass or pelvicalyceal dilation.
Anticipated Discharge: Within 24 hours
Subjective/Interval History
-
Date of Service: December 03, 2024
I saw and evaluated patient sitting comfortably in bed in no acute distress. Denies chest pain, shortness of breath, abdominal pain, fever, chills, nausea or vomiting. He reports right flank pain 6/10, intermittent in nature. He only feels this
pain when he stands up to go to the bathroom. Pain does not radiate but improves with extra strength Tylenol. He had no pain on examination.
Objective Data
-
Labs:
Laboratory Results
12/03/24 12/03/24
04:14 06:42
WBC 5.7
Hgb 11.8 L
Hct 35.1 L
Plt Count 164
Sodium 136
Potassium 3.8
Chloride 103
Carbon Dioxide 21 L
BUN 9
Creatinine 1.0
Glucose 93
Calcium 9.1
Total Bilirubin 1.7 H
AST 277 H
ALT 385 H
Alkaline Phosphatase 343 H
Vital Signs:
Vital Signs
Temp Pulse Resp BP Pulse Ox
98.1 F 63 18 112/72 100
12/03/24 04:24 12/03/24 00:15 12/03/24 04:24 12/02/24 22:43 12/03/24 04:24
I&O
12/02/24 12/03/24 12/04/24
05:59 06:59 06:59
Intake Total
Output Total
Balance
Review of Systems
-
History Source: Patient
All other systems: Reviewed and negative
Constitutional: Reports No Symptoms
Respiratory: Reports No Symptoms
Cardiac: Reports No Symptoms
Abdomen/GI: Reports Abdominal Pain (Intermittent right flank pain); Denies Nausea, Vomiting, Constipated or Bloated
Genitourinary: Reports No Symptoms and Flank Pain (Intermittent right flank pain)
Musculoskeletal: Reports No Symptoms
Skin: Reports No Symptoms
Neuro: Reports No Symptoms
Physical Exam
-
General: Well Nourished, No Apparent Distress, Comfortable and Conversant
HEENT: Normocephalic and Atraumatic; Negative Oxygen
Respiratory: Clear to Auscultation
Cardiac: Regular Rhythm and S1/S2; Negative Murmur or Rub
GI: Soft, Nontender, Nondistended and Normal Bowel Sounds
Musculoskeletal: No Clubbing, No Cyanosis and No Edema
Skin: Warm and Dry
Neuro: Awake, Alert, Oriented, No Motor Deficits and Nonfocal/Grossly Intact
Psych: Calm
Data Reviewed
-
Labs: Labs Reviewed by me, Discussed with Physician and Discussed with Nurse
[2024-12-03 07:57] VITALS: BP 110/67
[2024-12-03] MEDS: BRILINTA 90 MG PO ×2 (08:03→19:57)
[2024-12-03] MEDS: LOW STRENGTH ASPIRIN 81 MG PO (08:03)
--- NOTE | 2024-12-03 10:00 | PTCARENOTE ---
Pt c/o right lateral back pain upon initiation of getting up out of bed. Pt states that this has been occurring during this hospitalization. Pt rates it as a 4 to 5 out of 10 on pain scale. Pt states that it goes away when he continues to move
and when he rests in bed. Offered comfort measures. Will monitor.
[2024-12-03 11:45] VITALS: BP 115/76
[2024-12-03 15:35] LABS: Erythrocyte Sed Rate 80 mm/hour (0-20)
--- NOTE | 2024-12-03 16:53 | PTCARENOTE ---
Nursing transfer report to [facility] on [facility]. Pt to be transferred to room 434-2.
[2024-12-03 17:33] VITALS: BP 119/78
[2024-12-03] MEDS: LOVENOX 40 MG SC (17:34)
--- NOTE | 2024-12-03 17:43 | TRANSFER ---
Pt transferred to room 434-2 via wheelchair.
[2024-12-03 21:37] LABS: Haptoglobin 246 mg/dL (30-200)
[2024-12-03 23:19] VITALS: BP 98/60
[2024-12-04] LABS: IgA 508 mg/dl (70-400)
[2024-12-04 00:08] LABS: Complement C3 136 mg/dl (88-165)
[2024-12-04 05:54] VITALS: BMI 25.3
[2024-12-04 07:00] VITALS: BP 121/74
[2024-12-04] MEDS: LOW STRENGTH ASPIRIN 81 MG PO (07:44)
[2024-12-04] MEDS: BRILINTA 90 MG PO ×2 (07:45→20:52)
[2024-12-04] MEDS: TYLENOL 650 MG PO (07:49)
[2024-12-04 08:27] LABS: Hematocrit 37.5 % (39.0-52.0); Hemoglobin 12.7 g/dL (13.0-18.0); Mean Corp Hgb Conc. 33.9 g/dL (33.0-37.0); Mean Corpuscular Hgb 28.3 pg (27.0-31.0); Mean Corpuscular Volume 83.5 fL (80.0-94.0); Mean Platelet Volume 11.3 fL (7.4-10.4); Platelet Count 191 10^3/uL (130-400); Red Blood Cell Count 4.49 10^6/uL (4.70-6.10); Red Cell Dist. Width 12.8 % (11.5-14.5); White Blood Cell Count 5.7 10^3/uL (4.8-10.8)
[2024-12-04 08:41] LABS: ALT (SGPT) 476 U/L (0-50); AST (SGOT) 384 U/L (17-59); Albumin 3.9 g/dl (3.5-5.0); Alkaline Phosphatase 390 U/L (38-126); Blood Urea Nitrogen 14 mg/dl (9-20); Calcium 9.4 mg/dl (8.4-10.2); Carbon Dioxide 23 mmol/L (22-30); Chloride 104 mmol/L (98-107); Estimated Creatinine Clearance 64 ml/min; Glucose 92 mg/dl (70-99); Potassium 4.2 mmol/L (3.5-5.1); Sodium 138 mmol/L (135-145); Total Bilirubin 1.3 mg/dl (0.2-1.3); Total Protein 8.2 g/dl (6.3-8.2); eGFR > 60.00
--- NOTE | 2024-12-04 11:34 | W.PN.GI.CBS2 ---
Today's Communication / Plan
-
await w/u
Assessment / Plan
-
This patient is a 59-year-old man who has a history of coronary artery disease and a recent NSTEMI with PCI of the LAD. He also has had CHF and did have dizziness and lightheadedness prior to admission. Most likely this is due to passive
congestion and should improve on its own. He has had a ID workup which has been negative. This includes hepatitis screen that was negative. For now we will do the following:
1. follow LFTs which I will order for this morning
2. check autoimmune panel, AAT, iron studies
3. transaminases going up but bilirubin normalizing, sed rate high, hep panel negative. ID w/u and rest of liver w/u pending
4. if no answer liver biopsy may be helpful
5. pt/inr
Pt frustrated about staying as he now feels well.
Subjective
Subjective
Date of Service: December 04, 2024
Pt w/o fevers, no pain
Objective
Data Reviewed
Laboratory Data:
Laboratory Results
12/04/24 08:01
12/04/24 08:01
Laboratory Results
PT Cancelled 11/30/24 17:50
INR Cancelled 11/30/24 17:50
APTT Cancelled 11/30/24 17:50
Total Bilirubin 1.3 mg/dl (0.2-1.3) 12/04/24 08:01
AST 384 U/L (17-59) H 12/04/24 08:01
ALT 476 U/L (0-50) H 12/04/24 08:01
Alkaline Phosphatase 390 U/L (38-126) H 12/04/24 08:01
Lipase 215 U/L (23-300) 11/30/24 05:08
Vital Signs and I&O:
Vital Signs
Temp Pulse Resp BP Pulse Ox
98.5 F 67 19 121/74 100
12/04/24 07:00 12/04/24 07:00 12/04/24 07:00 12/04/24 07:00 12/04/24 08:00
I&O
12/03/24 12/04/24 12/05/24
06:59 06:59 06:59
Output Total
Balance
Physical Exam
Physical Exam
GI: Soft, Non Distended and Non Tender
Neuro: Non Focal
--- NOTE | 2024-12-04 12:51 | W.PN.ID1 ---
Date of Service
Date of Service: December 04, 2024
Today's Communication
will follow up lyme and possible liver biopsy
Assessment / Plan
Transaminitis
Report of penicillin allergy - syncope
- note transaminitis with elevated alk phos
- hep A/B/C serologies negative
- abd US: nonrevealing
- HIDA scan - no CBD obstruction
- lipase normal
- babesia smear negative; lyme pending
- pt reports had mononucleosis in the past, therefore EBV ruled out.
- ? from recent atorvastatin
- possible liver biopsy pending
- appreciate GI input
Chief Complaint
-: Other (elevated LFT's)
Subjective / Review of Systems
afebrile
bp stable
no complaints
no abdominal pain
Vital Signs / Physical Exam
Vital Signs
Vital Signs
Temp Pulse Resp BP Pulse Ox
98.5 F 67 19 121/74 100
12/04/24 07:00 12/04/24 07:00 12/04/24 07:00 12/04/24 07:00 12/04/24 08:00
Physical Exam
Constitutional: No Acute Distress
Cardiovascular: Regular Rate and S1/S2; Negative Murmur or Rub
Pulmonary: Clear and Symmetric; Negative Wheezes or Rales
Gastrointestinal: Soft, Non Tender, Non Distended and Normal Bowel Sounds
Skin: Warm and Dry; Negative Rash or Jaundice
Objective Data
Lab Data
Lab Results
12/04/24 08:01
12/04/24 08:01
ESR 80 mm/hour (0-20) H 12/03/24 15:12
PT Cancelled 11/30/24 17:50
INR Cancelled 11/30/24 17:50
APTT Cancelled 11/30/24 17:50
Estimated Creat Clear 64 ml/min 12/04/24 08:01
Lactic Acid Cancelled 11/30/24 10:48
Total Bilirubin 1.3 mg/dl (0.2-1.3) 12/04/24 08:01
AST 384 U/L (17-59) H 12/04/24 08:01
ALT 476 U/L (0-50) H 12/04/24 08:01
Alkaline Phosphatase 390 U/L (38-126) H 12/04/24 08:01
Most recent labs reviewed.
Micro Results:
11/29/24 22:54 Blood Culture - Preliminary
Blood/Venous No Growth in 4 days- Final report to follow
11/29/24 20:06 Blood Culture - Preliminary
Blood/Venous No Growth in 4 days- Final report to follow
12/01/24 10:10 Blood Parasites Smear - Final
Blood/Venous
11/29/24 10:00 Influenza Types A & B (AMY) - Final
Nasal Swab Negative for Influenza A & B, NAAT
Negative results must be combined with clinical observations
and patient history.
Nucleic Acid Amplification test (NAAT)performed on the
[employer] platform.
--- NOTE | 2024-12-04 13:23 | CM ---
Chart reviewed and plan is to home with parents when stable.
Plan; Home with parents when stable.
[2024-12-04 13:29] LABS: Lyme Antibody Screen, EIA Negative (Negative)
[2024-12-04 15:00] VITALS: BP 121/81
--- NOTE | 2024-12-04 15:16 | W.PN.UPDATE ---
Update Note
Progress Note Update
I saw and evaluated the patient. I reviewed the resident�s note and agree with findings and plan as documented in the resident�s note except changes in my documentation.
59-year-old male presented with chest pain. Patient had recent cath for non-STEMI with the LAD PCI on 11/15/2024. He also had a fever of 101 with elevated LFTs
Mild pain right lateral back when he walks vaugley.
CVS: S1-S2 normal
Chest: CTA B/L
Abdomen: Soft, NT / Bowel sounds present
Extremities: No edema, normal pulses
No tenderness in spine.
# Fever with elevated transaminases
So far workup is negative Doppler
Chest x-ray unremarkable
COVID and influenza negative
Blood cultures negative
Urine analysis-no infection
Lyme testing and Babesia smear sent-Neg
HIDA scan negative for obstruction
Hepatitis panel negative-patient needs to be vaccinated against hepatitis B as outpatient
Hold statin
Ultrasound without any acute changes except gallbladder slightly contracted. CBD normal size. Liver size top normal, Doppler-patent vasculature
Infectious disease consultation appreciated
GI consulted
Check Sed rate, CRP, C3 C4 , ANDRA pending (Mother H/O Lupus)-normal complement levels, sed rate slightly elevated. Added on ASMA .
Lyme serology negative
Patient may need liver biopsy
# STEPHANIE with mild hyponatremia-resolved with IV fluids-holding losartan as BP is soft.
# Coronary artery disease with recent NON-STEMI with cath and LAD stent-continue aspirin, Brilinta. Hold losartan and statin
# DVT prophylaxis-Lovenox
# Full code
--- NOTE | 2024-12-04 15:32 | W.PN.HOSP.TC ---
Today's Communication/Plan
-
Continue monitoring, waiting for test results to come. Monitor for any chest pain or worsening of flank pain.
Assessment / Plan
Assessment / Plan
Assessment:
59 year old male with a past medical history of essential hypertension, bipolar disorder, NILAY, recent NSTEMI in October 2024 after mid LAD PCI, presented to the hospital with chest pain. Patient was found to have elevated troponin, the levels
since have peaked. Patient was found to have a fever and elevated LFTs. Elevated LFTs were thought to be due to a viral illness but have persisted even after resolution of illness. Patient underwent further testing including ultrasound, hepatitis
panel, Lyme testing and Babesia smears. Patient was tested for Sed Rate, CRP, C3, C4, ANDRA and was found to have normal complement levels, and slightly elevated sed rate. Patient is being followed by GI who recommend that he might need a Liver biopsy.
NM Hepatobiliary (hida)- No scintigraphic evidence of common bile duct obstruction
US Abdominal Doppler Only (12/03/2024)- Patent hepatic vasculature with appropriate directional flow
Plan:
#Fever with Elevated Liver Enzymes
-Fever has resolved, liver enzymes still elevated
-Family history of lupus in mother- pending ANDRA
-History of mononucleosis
-Abdomen US showed no abnormalities
-Lipase normal, Hepatitis panel, flu and COVID all negative
-HIDA scan negative
-RUQ ultrasound, HIDA scan negative for acute liver pathology
-Iron studies showed elevated Ferritin and low TIBC- probably due to inflammatory process
-Lyme and Babesia smear negative
-Lyme serology negative, Celiac IgA 508
-ID Input appreciated
-GI Input appreciated
-Patient may require Liver biopsy if liver enzyme levels continue to stay elevated and no answer seen from autoimmune panel
-Holding atorvastatin
-Hep B vaccination series outpatient
-Continue to Follow LFTs
#CAD
-Stable, no chest pain
-S/p LAD PCI with LYNNE 11/15/2024.
-Cardiology input appreciated
-Troponin elevated and peaked at 0.168 and trended down
-No plans for cardiac cath per cardiology.
-Continue ASA and Brilinta.
#STEPHANIE with mild hyponatremia
-Resolved
-Holding Losartan still
-Creatinine back to baseline around 1.0.
#Hyperlipidemia
-Atorvastatin on hold for transaminitis.
#Mild anemia
-Follow CBC
-Hgb has been stable
#Essential hypertension
-BP stable, will resume Losartan upon discharge
-Continue monitoring BP
#NILAY
-CPAP @[facility]
DVT PPx: Lovenox
CODE STATUS: Full code
Anticipated Discharge: Within 24 hours
Subjective/Interval History
-
Date of Service: December 04, 2024
Patient states that he has been feeling much better. Only minor complaint is that he sometimes gets minor right flank pain as he gets up from his bed. He does not have any pain when laying down but it appears when he walks around.
Objective Data
-
Labs:
Laboratory Results
12/04/24
08:01
WBC 5.7
Hgb 12.7 L
Hct 37.5 L
Plt Count 191
Sodium 138
Potassium 4.2
Chloride 104
Carbon Dioxide 23
BUN 14
Creatinine 1.1
Glucose 92
Calcium 9.4
Total Bilirubin 1.3
AST 384 H
ALT 476 H
Alkaline Phosphatase 390 H
Vital Signs:
Vital Signs
Temp Pulse Resp BP Pulse Ox
98.5 F 67 19 121/74 100
12/04/24 07:00 12/04/24 07:00 12/04/24 07:00 12/04/24 07:00 12/04/24 08:00
I&O
12/03/24 12/04/24 12/05/24
06:59 06:59 06:59
Output Total
Balance
Review of Systems
-
History Source: Patient
All other systems: Reviewed and negative
Constitutional: Reports No Symptoms
Respiratory: Denies Cough, Trouble Breathing or Wheezing
Cardiac: Reports No Symptoms
Abdomen/GI: Denies Nausea, Vomiting, Constipated or Bloated
Genitourinary: Reports Flank Pain (Intermittent right flank pain)
Skin: Reports No Symptoms
Neuro: Reports No Symptoms
Physical Exam
-
General: Well Nourished, No Apparent Distress and Conversant
HEENT: Normocephalic and Atraumatic
Respiratory: Clear to Auscultation and Non Labored Respirations
Cardiac: Regular Rhythm and S1/S2
GI: Soft, Nontender, Nondistended and Normal Bowel Sounds
Genito-urinary: No Costovertebral Tender
Musculoskeletal: No Clubbing, No Cyanosis and No Edema
Skin: Warm and Dry
Neuro: Awake, Alert, Oriented and No Motor Deficits
Psych: Calm
Data Reviewed
-
Labs: Labs Reviewed by me, Discussed with Physician, Discussed with Nurse and Discussed with Patient
[2024-12-04] MEDS: LOVENOX 40 MG SC (17:17)
[2024-12-04 18:44] LABS: Alpha-1-Antitrypsin 235 mg/dL (90-200)
[2024-12-04 23:09] VITALS: BP 115/71
[2024-12-05 00:13] LABS: tTG IgA Antibody 1.41 FLU (0.00-4.99)
[2024-12-05 02:10] LABS: F-Actin Antibody IgG 13 Units (0-19)
[2024-12-05 02:25] LABS: ANA, IgG Reflex to HEp-2 Detected (None Detected)
[2024-12-05 05:16] VITALS: BMI 25.3
[2024-12-05 07:00] VITALS: BP 128/75
[2024-12-05 07:28] LABS: Hematocrit 37.6 % (39.0-52.0); Hemoglobin 12.5 g/dL (13.0-18.0); Mean Corp Hgb Conc. 33.2 g/dL (33.0-37.0); Mean Corpuscular Volume 84.1 fL (80.0-94.0); Mean Platelet Volume 11.1 fL (7.4-10.4); Platelet Count 203 10^3/uL (130-400); Red Blood Cell Count 4.47 10^6/uL (4.70-6.10); Red Cell Dist. Width 12.9 % (11.5-14.5); White Blood Cell Count 5.9 10^3/uL (4.8-10.8)
[2024-12-05 07:47] LABS: INR 0.99; PT 13.4 Sec (11.4-14.6)
[2024-12-05] MEDS: LOW STRENGTH ASPIRIN 81 MG PO (07:55)
[2024-12-05] MEDS: BRILINTA 90 MG PO ×2 (07:56→20:28)
[2024-12-05 08:05] LABS: ALT (SGPT) 638 U/L (0-50); AST (SGOT) 514 U/L (17-59); Albumin 4.1 g/dl (3.5-5.0); Alkaline Phosphatase 386 U/L (38-126); Blood Urea Nitrogen 16 mg/dl (9-20); Calcium 9.6 mg/dl (8.4-10.2); Carbon Dioxide 23 mmol/L (22-30); Chloride 103 mmol/L (98-107); Estimated Creatinine Clearance 64 ml/min; Glucose 91 mg/dl (70-99); Potassium 4.4 mmol/L (3.5-5.1); Sodium 136 mmol/L (135-145); Total Bilirubin 1.4 mg/dl (0.2-1.3); Total Protein 8.6 g/dl (6.3-8.2); eGFR > 60.00
--- NOTE | 2024-12-05 08:37 | W.PN.GI.CBS2 ---
Today's Communication / Plan
-
-- Hold Tylenol
-- Monitor labs holding off on biopsy since Brilinta cannot be held
Assessment / Plan
-
This patient is a 59-year-old man who has a history of coronary artery disease and a recent NSTEMI with PCI of the LAD 11/15/2024 on Brilinta and aspirin with relatively normal ECHO during this admission came in with now resolved chest pain and fever
with majority hepatocellular injury also with 3 times upper limit normal of alkaline phosphatase with a total bilirubin of 1.4 on 12/05/2024. He has had a ID workup which has been negative.
12/05/2024 CT abdomen pelvis with IV contrast only. No focal abnormality of the gallbladder and no ductal dilatation, normal-appearing liver with patent main portal vein and branches as well as the SMV and splenic vein. Normal-sized spleen,
pancreas. No findings to explain his back pain
12/03/2024, hepatic ultrasound was negative for clot
12/01/2024 HIDA scan is negative for bile duct obstruction
11/29/2024 abdominal ultrasound shows no evidence of gallstones with normal gallbladder wall, liver top normal, no ductal dilatation no focal hepatic lesion, normal flow in the portal vein
Infectious workup including blood cultures, influenza A&B are negative, negative Lyme, Babesia smear was negative, patient had mono in the past therefore ID says EBV is ruled out,
No leukocytosis even on admission
He has been afebrile since 11/30/2024
12/05/24 normal coags with an INR of 1
Liver studies negative celiac, normal F-actin antibody, positive ANDRA, negative hepatitis AB and C, negative Lyme, mildly elevated alpha-1 antitrypsin, mildly elevated IgA
# Majority hepatocellular injury with 3 times upper limit normal alkaline phosphatase with a mildly elevated bilirubin
-- Patient is not in liver failure. He has normal coagulation studies
--Would complete the autoimmune workup with AMA, immunoglobulins G and M, ASMA
--Patient feels good and has not been febrile
--need to figure out his lovenox and Brilinta with IR and a liver biopsy -I discussed with the hospitalist who discussed with cardiology and since his stent is very fresh we cannot stop the Brilinta
-- My plan was to stop the Brilinta then check the liver enzymes and if they started to improve restart the Brilinta but since that is not an option his watch and wait
-- I do think this will improve and was likely all infectious related. Hopefully it is peaked and we will see it come down in the next couple of days.
-- Since the bilirubin is practically normal I am not concerned. His INR is normal. He is not in liver failure. This should improve -this was all acute
-- We do need to hold hepatotoxic medications like Tylenol and statins
Total Time Spent with Patient (in minutes): 55
Subjective
Subjective
Date of Service: December 05, 2024
Patient has no complaints other than new onset right sided back pain over the rib cage that is worse with movement
Objective
Data Reviewed
Laboratory Data:
Laboratory Results
12/05/24 07:15
12/05/24 07:15
Laboratory Results
PT 13.4 Sec (11.4-14.6) 12/05/24 07:15
INR 0.99 12/05/24 07:15
APTT Cancelled 11/30/24 17:50
Total Bilirubin 1.4 mg/dl (0.2-1.3) H 12/05/24 07:15
AST 514 U/L (17-59) H* 12/05/24 07:15
ALT 638 U/L (0-50) H* 12/05/24 07:15
Alkaline Phosphatase 386 U/L (38-126) H 12/05/24 07:15
Lipase 215 U/L (23-300) 11/30/24 05:08
Vital Signs and I&O:
Vital Signs
Temp Pulse Resp BP Pulse Ox
97.7 F 71 18 115/71 100
12/04/24 23:09 12/04/24 23:09 12/04/24 23:09 12/04/24 23:09 12/04/24 23:09
I&O
12/04/24 12/05/24 12/06/24
06:59 06:59 06:59
Intake Total 240 / 240
Balance 240 / 240
--- NOTE | 2024-12-05 10:31 | W.PN.ID1 ---
Date of Service
Date of Service: December 05, 2024
Today's Communication
- liver biopsy currently on hold
Assessment / Plan
Transaminitis
Report of penicillin allergy - syncope
- note transaminitis with elevated alk phos
- hep A/B/C serologies negative
- abd US: nonrevealing
- HIDA scan - no CBD obstruction
- lipase normal
- babesia smear negative; lyme serology negative
- pt reports had mononucleosis in the past, therefore acute EBV ruled out.
- ? from recent atorvastatin
- liver biopsy currently on hold
- appreciate GI input
Chief Complaint
-: Other (elevated LFT's)
Subjective / Review of Systems
afebrile
bp stable
no events overnight
Vital Signs / Physical Exam
Vital Signs
Vital Signs
Temp Pulse Resp BP Pulse Ox
98.4 F 70 18 128/75 100
12/05/24 07:00 12/05/24 07:00 12/05/24 07:00 12/05/24 07:00 12/05/24 08:00
Physical Exam
Constitutional: No Acute Distress
Cardiovascular: Regular Rate and S1/S2; Negative Murmur or Rub
Pulmonary: Clear and Symmetric; Negative Wheezes or Rales
Gastrointestinal: Soft, Non Tender, Non Distended and Normal Bowel Sounds
Skin: Warm and Dry; Negative Rash or Jaundice
Objective Data
Lab Data
Lab Results
12/05/24 07:15
12/05/24 07:15
ESR 80 mm/hour (0-20) H 12/03/24 15:12
PT 13.4 Sec (11.4-14.6) 12/05/24 07:15
INR 0.99 12/05/24 07:15
APTT Cancelled 11/30/24 17:50
Estimated Creat Clear 64 ml/min 12/05/24 07:15
Lactic Acid Cancelled 11/30/24 10:48
Total Bilirubin 1.4 mg/dl (0.2-1.3) H 12/05/24 07:15
AST 514 U/L (17-59) H* 12/05/24 07:15
ALT 638 U/L (0-50) H* 12/05/24 07:15
Alkaline Phosphatase 386 U/L (38-126) H 12/05/24 07:15
C-Reactive Protein 28.90 mg/L (0.0-10.00) H 12/04/24 08:01
Most recent labs reviewed.
Micro Results:
11/29/24 22:54 Blood Culture - Final
Blood/Venous No Growth - Final Report
11/29/24 20:06 Blood Culture - Final
Blood/Venous No Growth - Final Report
12/01/24 10:10 Blood Parasites Smear - Final
Blood/Venous
11/29/24 10:00 Influenza Types A & B (AMY) - Final
Nasal Swab Negative for Influenza A & B, NAAT
Negative results must be combined with clinical observations
and patient history.
Nucleic Acid Amplification test (NAAT)performed on the
[employer] platform.
--- NOTE | 2024-12-05 14:04 | CM ---
Chart reviewed, home when stable, no needs.
Plan; Home no needs.
--- NOTE | 2024-12-05 14:05 | W.PN.HOSP.TC ---
Addendum entered and electronically signed by Jasper Jacobsen MD 12/05/24 15:08:
I saw and evaluated the patient. I reviewed the resident�s note and agree with findings and plan as documented in the resident�s note except changes in my documentation.
59-year-old male presented with chest pain. Patient had recent cath for non-STEMI with the LAD PCI on 11/15/2024. He also had a fever of 101 with elevated LFTs
CVS: S1-S2 normal
Chest: CTA B/L
Abdomen: Soft, NT / Bowel sounds present
Extremities: No edema, normal pulses
No tenderness in spine.
He has pain in the right posterior aspect in the mid section.
# Fever with elevated transaminases
So far workup is negative Doppler
Chest x-ray unremarkable
COVID and influenza negative
Blood cultures negative
Urine analysis-no infection
Lyme testing and Babesia smear sent-Neg
HIDA scan negative for obstruction
Hepatitis panel negative-patient needs to be vaccinated against hepatitis B as outpatient
Hold statin. Tylenol discontinued
Ultrasound without any acute changes except gallbladder slightly contracted. CBD normal size. Liver size top normal, Doppler-patent vasculature
Infectious disease consultation appreciated
GI consulted and following
Check Sed rate, CRP, C3 C4 , ANDRA pending (Mother H/O Lupus)-normal complement levels, sed rate slightly elevated. Added on ASMA .
Lyme serology negative
Patient may need liver biopsy however cannot hold Brilinta
Pain is likely muscular pain
# STEPHANIE with mild hyponatremia-resolved with IV fluids-restart losartan at 25 mg dose at discharge
# Coronary artery disease with recent NON-STEMI with cath and LAD stent-continue aspirin, Brilinta. Hold statin. Restart losartan at 25 mg dose at discharge
# Mild to moderate DDD L4-L5, mild to moderate right foraminal narrowing L4-L5 and L5-S1. Dextroconvex scoliosis L1-L2
# DVT prophylaxis-Lovenox
# Full code
Discussed with GI if no answers from the autoimmune panel and if LFTs go up he might need a biopsy. Discussed with interventional radiology for biopsying they would like Brilinta to be held for 5 days. Per discussion with cardiology patient is a
high risk for holding Brilinta at this point.
Unfortunately this is a difficult situation. Wait for autoimmune studies to come back
time spent 40 min
Original Note:
Today's Communication/Plan
-
Continue monitoring for any worsening of back pain. Continue monitoring for development of abdominal pain. Awaiting word from GI regarding need for potential biopsy. Patient may be able to do these tests as an outpatient setting.
Assessment / Plan
Assessment / Plan
Assessment:
59 year old male with a past medical history of essential hypertension, bipolar disorder, NILAY, recent NSTEMI in October 2024 after mid LAD PCI, presented to the hospital with chest pain. Patient was found to have elevated troponin, the levels
since have peaked. Patient was found to have a fever and elevated LFTs. Elevated LFTs were thought to be due to a viral illness but have persisted even after resolution of illness. Patient underwent further testing including ultrasound, hepatitis
panel, Lyme testing and Babesia smears. Patient was tested for Sed Rate, CRP, C3, C4, ANDRA and was found to have normal complement levels, and slightly elevated sed rate. Patient is being followed by GI who recommend that he might need a Liver
biopsy. Patient continued to have right sided lower back pain which has now starting to appear while sitting. Patient's liver enzymes continue to elevate. Was able to talk with patient's cousin Paula and help explain what is going on.
NM Hepatobiliary (hida)- No scintigraphic evidence of common bile duct obstruction
US Abdominal Doppler Only (12/03/2024)- Patent hepatic vasculature with appropriate directional flow
Plan:
#Fever with Elevated Liver Enzymes
-Fever has resolved, liver enzymes still elevated
-Family history of lupus in mother- pending ANDRA
-History of mononucleosis
-Abdomen US showed no abnormalities
-Lipase normal, Hepatitis panel, flu and COVID all negative
-HIDA scan negative
-RUQ ultrasound, HIDA scan negative for acute liver pathology
-Iron studies showed elevated Ferritin and low TIBC- probably due to inflammatory process
-Lyme and Babesia smear negative
-Lyme serology negative, IgA 508, C3+C4 in normal limits, ANDRA IgG screen was positive, waiting on immunoglobulin results and C-reactive protein
-ID Input appreciated
-GI Input appreciated
-Patient may require Liver biopsy if liver enzyme levels continue to stay elevated and no answer seen from autoimmune panel
-Holding atorvastatin
-Hep B vaccination series outpatient
-Continue to Follow LFTs
-CT abdomen pelvis with IV contrast was ordered to evaluate back pain but did not show any abnormalities in the liver to explain the elevation in liver enzymes
# Right-sided lower back pain
-Lower back pain has increased in intensity and is now more apparent while sitting down as compared to before
-CT abdomen pelvis with IV contrast was ordered
-No focal abnormalities seen other than some mild to moderate peripheral scarring involving the right kidney with mild peripheral scarring involving the left kidney along with bony degenerative changes such as of the right hip joint and of the
symphysis pubis.
-Pain may be due to his degenerative changes
-Will give pain medicine as needed
#CAD
-Stable, no chest pain
-S/p LAD PCI with LYNNE 11/15/2024.
-Cardiology input appreciated
-Troponin elevated and peaked at 0.168 and trended down
-No plans for cardiac cath per cardiology.
-Continue ASA and Brilinta.
#STEPHANIE with mild hyponatremia
-Resolved
-Holding Losartan still
-Creatinine back to baseline around 1.0.
#Hyperlipidemia
-Atorvastatin on hold for transaminitis.
#Mild anemia
-Follow CBC
-Hgb has been stable
#Essential hypertension
-BP stable, will resume Losartan upon discharge
-Continue monitoring BP
#NILAY
-CPAP @[facility]
DVT PPx: Lovenox
CODE STATUS: Full code
Anticipated Discharge: Within 24 hours
Subjective/Interval History
-
Date of Service: December 05, 2024
Patient states that his lower right flank pain has gotten a bit worse as he can feel it well laying down now as well. Before it was mainly just when he was walking. Otherwise he has no complaints and was able to sleep last night with no issues.
Objective Data
-
Labs:
Laboratory Results
12/05/24
07:15
WBC 5.9
Hgb 12.5 L
Hct 37.6 L
Plt Count 203
PT 13.4
INR 0.99
Sodium 136
Potassium 4.4
Chloride 103
Carbon Dioxide 23
BUN 16
Creatinine 1.1
Glucose 91
Calcium 9.6
Total Bilirubin 1.4 H
AST 514 H*
ALT 638 H*
Alkaline Phosphatase 386 H
Vital Signs:
Vital Signs
Temp Pulse Resp BP Pulse Ox
98.4 F 70 18 128/75 100
12/05/24 07:00 12/05/24 07:00 12/05/24 07:00 12/05/24 07:00 12/05/24 08:00
I&O
12/04/24 12/05/24 12/06/24
06:59 06:59 06:59
Intake Total 240 / 240
Balance 240 / 240
Review of Systems
-
History Source: Patient
All other systems: Reviewed and negative
Constitutional: Reports No Symptoms
Respiratory: Denies Cough, Trouble Breathing or Wheezing
Cardiac: Reports No Symptoms
Abdomen/GI: Denies Nausea, Vomiting, Constipated or Bloated
Genitourinary: Reports Flank Pain (Intermittent right flank pain)
Skin: Reports No Symptoms
Neuro: Reports No Symptoms
Physical Exam
-
General: Well Nourished, No Apparent Distress, Comfortable and Conversant
HEENT: Normocephalic and Atraumatic
Respiratory: Clear to Auscultation and Non Labored Respirations
Cardiac: Regular Rhythm and S1/S2
GI: Soft, Nontender, Nondistended and Normal Bowel Sounds
Genito-urinary: No Costovertebral Tender
Musculoskeletal: No Clubbing, No Cyanosis and No Edema
Skin: Warm and Dry
Neuro: Awake, Alert, Oriented and No Motor Deficits
Psych: Calm
Data Reviewed
-
CT Scan: Report Reviewed by me
Labs: Labs Reviewed by me, Discussed with Physician, Discussed with Nurse, Discussed with Patient and Discussed with Family
[2024-12-05 15:07] VITALS: BP 126/79
[2024-12-05 15:14] LABS: Endomysial IgA Antibody Titer <1:10 (<1:10)
--- NOTE | 2024-12-05 15:34 | W.PN.UPDATE ---
Update Note
Progress Note Update
patient being considered for liver biopsy by GI. d/w RELL, who would need to hold brilinta for 5 days prior to completing liver biopsy due to bleeding risk. With recent stent < 1 month ago on 11/15/24, stopping brilinta for 5 days would put patient
at high risk for in stent thrombosis. continue uninterrupted DAPT. awaiting autoimmune work up. d/w hospitalist.
[2024-12-05] MEDS: LOVENOX 40 MG SC (17:27)
[2024-12-05 23:15] VITALS: BP 105/66
--- NOTE | 2024-12-06 01:25 | PTCARENOTE ---
AAO x 4. VSS. Patient denies pain. OOB ad oziel. All patient needs met. CPAP on at [facility]. Call pizarro and personal belongings within reach.
[2024-12-06 07:30] VITALS: BP 127/77
[2024-12-06 07:37] LABS: Hematocrit 36.6 % (39.0-52.0); Mean Corp Hgb Conc. 32.8 g/dL (33.0-37.0); Mean Corpuscular Hgb 27.8 pg (27.0-31.0); Mean Corpuscular Volume 84.9 fL (80.0-94.0); Platelet Count 212 10^3/uL (130-400); Red Blood Cell Count 4.31 10^6/uL (4.70-6.10); Red Cell Dist. Width 12.9 % (11.5-14.5); White Blood Cell Count 5.7 10^3/uL (4.8-10.8)
[2024-12-06 07:51] LABS: INR 0.93
[2024-12-06 08:11] LABS: ALT (SGPT) 515 U/L (0-50); AST (SGOT) 291 U/L (17-59); Albumin 4.1 g/dl (3.5-5.0); Alkaline Phosphatase 336 U/L (38-126); Blood Urea Nitrogen 16 mg/dl (9-20); Calcium 9.5 mg/dl (8.4-10.2); Carbon Dioxide 21 mmol/L (22-30); Chloride 102 mmol/L (98-107); Estimated Creatinine Clearance 64 ml/min; Glucose 97 mg/dl (70-99); Potassium 4.4 mmol/L (3.5-5.1); Sodium 137 mmol/L (135-145); Total Bilirubin 1.2 mg/dl (0.2-1.3); Total Protein 8.5 g/dl (6.3-8.2); eGFR > 60.00
[2024-12-06] MEDS: LOW STRENGTH ASPIRIN 81 MG PO (09:48)
[2024-12-06] MEDS: BRILINTA 90 MG PO (09:48)
--- NOTE | 2024-12-06 11:07 | W.PN.ID1 ---
Date of Service
Date of Service: December 06, 2024
Today's Communication
- resolving transaminitis
- ID service will no longer actively follow this patient please recall for further questions
Assessment / Plan
Transaminitis
Report of penicillin allergy - syncope
- resolving transaminitis
- ID service will no longer actively follow this patient please recall for further questions
Chief Complaint
-: Other (elevated LFT's)
Subjective / Review of Systems
afebrile
bp stable
tolerating current therapies
Vital Signs / Physical Exam
Vital Signs
Vital Signs
Temp Pulse Resp BP Pulse Ox
98.1 F 73 16 127/77 99
12/06/24 07:30 12/06/24 07:30 12/06/24 07:30 12/06/24 07:30 12/06/24 07:30
Physical Exam
Constitutional: No Acute Distress
Cardiovascular: Regular Rate and S1/S2; Negative Murmur or Rub
Pulmonary: Clear and Symmetric; Negative Wheezes or Rales
Gastrointestinal: Soft, Non Tender, Non Distended and Normal Bowel Sounds
Skin: Warm and Dry; Negative Rash or Jaundice
Objective Data
Lab Data
Lab Results
12/06/24 07:24
12/06/24 07:24
ESR 80 mm/hour (0-20) H 12/03/24 15:12
PT 13.0 Sec (11.4-14.6) 12/06/24 07:24
INR 0.93 12/06/24 07:24
APTT Cancelled 11/30/24 17:50
Estimated Creat Clear 64 ml/min 12/06/24 07:24
Lactic Acid Cancelled 11/30/24 10:48
Total Bilirubin 1.2 mg/dl (0.2-1.3) 12/06/24 07:24
AST 291 U/L (17-59) H 12/06/24 07:24
ALT 515 U/L (0-50) H* 12/06/24 07:24
Alkaline Phosphatase 336 U/L (38-126) H 12/06/24 07:24
C-Reactive Protein 28.90 mg/L (0.0-10.00) H 12/04/24 08:01
Most recent labs reviewed.
Micro Results:
11/29/24 22:54 Blood Culture - Final
Blood/Venous No Growth - Final Report
11/29/24 20:06 Blood Culture - Final
Blood/Venous No Growth - Final Report
12/01/24 10:10 Blood Parasites Smear - Final
Blood/Venous
11/29/24 10:00 Influenza Types A & B (AMY) - Final
Nasal Swab Negative for Influenza A & B, NAAT
Negative results must be combined with clinical observations
and patient history.
Nucleic Acid Amplification test (NAAT)performed on the
[employer] platform.
--- NOTE | 2024-12-06 12:09 | CM ---
Home no needs when stable.
Plan; Home no needs.
--- NOTE | 2024-12-06 12:40 | W.PN.GI.CBS2 ---
Today's Communication / Plan
-
-- Okay for discharge with follow-up labs next week
-- Continue to hold statin until ALT goes below 100
Assessment / Plan
-
This patient is a 59-year-old man who has a history of coronary artery disease and a recent NSTEMI with PCI of the LAD 11/15/2024 on Brilinta and aspirin with relatively normal ECHO during this admission came in with now resolved chest pain and fever
with majority hepatocellular injury also with 3 times upper limit normal of alkaline phosphatase with a total bilirubin of 1.4 on 12/05/2024. He has had a ID workup which has been negative.
12/05/2024 CT abdomen pelvis with IV contrast only. No focal abnormality of the gallbladder and no ductal dilatation, normal-appearing liver with patent main portal vein and branches as well as the SMV and splenic vein. Normal-sized spleen,
pancreas. No findings to explain his back pain
12/03/2024, hepatic ultrasound was negative for clot
12/01/2024 HIDA scan is negative for bile duct obstruction
11/29/2024 abdominal ultrasound shows no evidence of gallstones with normal gallbladder wall, liver top normal, no ductal dilatation no focal hepatic lesion, normal flow in the portal vein
Infectious workup including blood cultures, influenza A&B are negative, negative Lyme, Babesia smear was negative, patient had mono in the past therefore ID says EBV is ruled out,
No leukocytosis even on admission
He has been afebrile since 11/30/2024
12/05/24 normal coags with an INR of 1
Liver studies negative celiac, normal F-actin antibody, positive ANDRA, negative hepatitis AB and C, negative Lyme, mildly elevated alpha-1 antitrypsin, mildly elevated IgA
# Majority hepatocellular injury with 3 times upper limit normal alkaline phosphatase with a mildly elevated bilirubin
--Liver enzymes and bilirubin have appeared to peak on 12/05/2024. Currently they are improving with bilirubin into normal range at 1.2, AST from 514 down to 291 and ALT of 6 38-->5 15 with relatively stable alkaline phosphatase at 336.
-- Patient is not in liver failure. He has normal coagulation studies
--autoimmune workup with AMA, immunoglobulins G and M, ASMA -some studies still pending
--Patient feels good and has not been febrile
-- I do think this will improve and was likely all infectious related.
-- Since the bilirubin is normal I am not concerned. His INR is normal. He is not in liver failure. This should improve -this was all acute
-- We do need to hold hepatotoxic medications like Tylenol and statins
--Patient is okay for discharge. He has a lab slip to be done on Wednesday with results sent to our office.
-- Follow-up scheduled on 12/29/2024 with CHAPARRO Clemente at 1130
Subjective
Subjective
Date of Service: December 06, 2024
Patient continues to feel well and is happy about being discharged
Objective
Data Reviewed
Laboratory Data:
Laboratory Results
12/06/24 07:24
12/06/24 07:24
Laboratory Results
PT 13.0 Sec (11.4-14.6) 12/06/24 07:24
INR 0.93 12/06/24 07:24
APTT Cancelled 11/30/24 17:50
Total Bilirubin 1.2 mg/dl (0.2-1.3) 12/06/24 07:24
AST 291 U/L (17-59) H 12/06/24 07:24
ALT 515 U/L (0-50) H* 12/06/24 07:24
Alkaline Phosphatase 336 U/L (38-126) H 12/06/24 07:24
Lipase 215 U/L (23-300) 11/30/24 05:08
Vital Signs and I&O:
Vital Signs
Temp Pulse Resp BP Pulse Ox
98.1 F 73 16 127/77 99
12/06/24 07:30 12/06/24 07:30 12/06/24 07:30 12/06/24 07:30 12/06/24 10:00
I&O
12/05/24 12/06/24 12/07/24
06:59 06:59 06:59
Intake Total 240 / 240 0 / 0
Balance 240 / 240 0 / 0
Physical Exam
Physical Exam
HEENT: Anicteric
GI: Soft, Non Distended and Non Tender
Extremities: No Edema
Neuro: Non Focal
--- NOTE | 2024-12-06 13:34 | W.PN.UPDATE ---
Update Note
Progress Note Update
I saw and evaluated the patient. I reviewed the resident�s note and agree with findings and plan as documented in the resident�s note except changes in my documentation.
59-year-old male presented with chest pain. Patient had recent cath for non-STEMI with the LAD PCI on 11/15/2024. He also had a fever of 101 with elevated LFTs
CVS: S1-S2 normal
Chest: CTA B/L
Abdomen: Soft, NT / Bowel sounds present
Extremities: No edema, normal pulses
No tenderness in spine.
He has pain in the right posterior aspect in the mid section.
# Fever with elevated transaminases
So far workup is negative Doppler
Chest x-ray unremarkable
COVID and influenza negative
Blood cultures negative
Urine analysis-no infection
Lyme testing and Babesia smear sent-Neg
HIDA scan negative for obstruction
Hepatitis panel negative-patient needs to be vaccinated against hepatitis B as outpatient
Hold statin. Tylenol discontinued. Continue to hold until LFTs improve as outpatient
Ultrasound without any acute changes except gallbladder slightly contracted. CBD normal size. Liver size top normal, Doppler-patent vasculature
Infectious disease consultation appreciated
GI consulted and following
Check Sed rate, CRP, C3 C4 , ANDRA pending (Mother H/O Lupus)-normal complement levels, sed rate slightly elevated. Added on ASMA .
Lyme serology negative
Patient may need liver biopsy however cannot hold Brilinta
However likely LFTs are improving today. Likely viral reasons
Pain is likely muscular pain
# STEPHANIE with mild hyponatremia-resolved with IV fluids-restart losartan at 25 mg dose at discharge
# Coronary artery disease with recent NON-STEMI with cath and LAD stent-continue aspirin, Brilinta. Hold statin. Restarted losartan at 25 mg dose at discharge
# Mild to moderate DDD L4-L5, mild to moderate right foraminal narrowing L4-L5 and L5-S1. Dextroconvex scoliosis L1-L2
# DVT prophylaxis-Lovenox
# Full code
Discussed with GI okay for discharge with outpatient labs
Discussed with patient's cousin Paula from his cell phone. Reviewed about test, initial plan was for biopsy but he cannot stop Brilinta and the LFTs are trending down. Aware that he needs to follow-up with GI for completing the workup of elevated
LFTs and also for the pending results. Lab slip will be given for LFT follow-up. Also discussed about vaccination against hepatitis B as outpatient. All questions answered.
More than 30 minutes spent in discharge including
Final examination of the patient
Summarizing hospital stay
Instructions for continuing care to all relevant caregivers
Preparation of discharge records, prescriptions, and referral forms
Total time spent (in minutes): 36 min
--- NOTE | 2024-12-06 13:54 | W.PN.HOSP.TC ---
Today's Communication/Plan
-
Patient to be discharged home today with instructions to get labs done on Wednesday. He has follow up dates scheduled with his specialists including GI, and Cardiology
Assessment / Plan
Assessment / Plan
Assessment:
59 year old male with a past medical history of essential hypertension, bipolar disorder, NILAY, recent NSTEMI in October 2024 after mid LAD PCI, presented to the hospital with chest pain. Patient was found to have elevated troponin, the levels
since have peaked. Patient was found to have a fever and elevated LFTs. Elevated LFTs were thought to be due to a viral illness but have persisted even after resolution of illness. Patient underwent further testing including ultrasound, hepatitis
panel, Lyme testing and Babesia smears. Patient was tested for Sed Rate, CRP, C3, C4, ANDRA and was found to have normal complement levels, and slightly elevated sed rate. Patient is being followed by GI who recommend that he might need a Liver
biopsy. Patient continued to have right sided lower back pain which has now starting to appear while sitting. Patient's liver enzymes continue to elevate. Was able to talk with patient's cousin Paula and help explain what is going on. CT Scan was
negative yesterday. Patient's LFTs are trending down again. Patient to be discharged home today with instructions to follow up with GI in the outpatient setting.
NM Hepatobiliary (hida)- No scintigraphic evidence of common bile duct obstruction
US Abdominal Doppler Only (12/03/2024)- Patent hepatic vasculature with appropriate directional flow
CT Abd/pelvis W Iv Cont (12/05/2024)-
No focal abnormality gallbladder by CT with no evidence for biliary ductal dilation. Liver appears grossly within normal limits.
Mild to moderate peripheral scarring involving the right kidney with mild peripheral scarring involving the left kidney. Mild to moderate overall size of the right kidney with minimal overall decrease in size of the left kidney.
Evaluation of the pelvis limited by streak artifact from left hip prosthesis.
Bony degenerative changes as described.
Plan:
#Fever with Elevated Liver Enzymes
-Fever has resolved, liver enzymes still elevated
-Family history of lupus in mother- pending ANDRA
-History of mononucleosis
-Abdomen US showed no abnormalities
-Lipase normal, Hepatitis panel, flu and COVID all negative
-HIDA scan negative
-RUQ ultrasound, HIDA scan negative for acute liver pathology
-Iron studies showed elevated Ferritin and low TIBC- probably due to inflammatory process
-Lyme and Babesia smear negative
-Lyme serology negative, IgA 508, C3+C4 in normal limits, ANDRA IgG screen was positive, waiting on immunoglobulin results and C-reactive protein
-ID Input appreciated
-GI Input appreciated
-Patient may require Liver biopsy if liver enzyme levels continue to stay elevated and no answer seen from autoimmune panel
-Holding atorvastatin and tylenol
-Hep B vaccination series outpatient
-CT abdomen pelvis with IV contrast was ordered to evaluate back pain but did not show any abnormalities in the liver to explain the elevation in liver enzymes
-LFTs trending down. Patient stable and counseled to follow up with GI in the outpatient setting. Has appointment in 12/29. Given slip to get Hepatic panel, BMP, and INR tests done on Wednesday.
# Right-sided lower back pain
-Lower back pain has increased in intensity and is now more apparent while sitting down as compared to before
-CT abdomen pelvis with IV contrast was ordered
-No focal abnormalities seen other than some mild to moderate peripheral scarring involving the right kidney with mild peripheral scarring involving the left kidney along with bony degenerative changes such as of the right hip joint and of the
symphysis pubis.
-Pain may be due to his degenerative changes
-Will give pain medicine as needed
#CAD
-Stable, no chest pain
-S/p LAD PCI with LYNNE 11/15/2024.
-Cardiology input appreciated
-Troponin elevated and peaked at 0.168 and trended down
-No plans for cardiac cath per cardiology.
-Continue ASA and Brilinta.
#STEPHANIE with mild hyponatremia
-Resolved
-Holding Losartan still
-Creatinine back to baseline around 1.0.
#Hyperlipidemia
-Atorvastatin on hold for transaminitis.
#Mild anemia
-Follow CBC
-Hgb has been stable
#Essential hypertension
-BP stable, will resume Losartan upon discharge at half dose (25 mg)
-Continue monitoring BP
#NILAY
-CPAP @[facility]
DVT PPx: Lovenox
CODE STATUS: Full code
Anticipated Discharge: Today
Subjective/Interval History
-
Date of Service: December 06, 2024
Patient has been feeling well and has no concerns. Understands that his back pain is most likely musculoskeletal related/age related
Objective Data
-
Labs:
Laboratory Results
12/06/24
07:24
WBC 5.7
Hgb 12.0 L
Hct 36.6 L
Plt Count 212
PT 13.0
INR 0.93
Sodium 137
Potassium 4.4
Chloride 102
Carbon Dioxide 21 L
BUN 16
Creatinine 1.1
Glucose 97
Calcium 9.5
Total Bilirubin 1.2
AST 291 H
ALT 515 H*
Alkaline Phosphatase 336 H
Vital Signs:
Vital Signs
Temp Pulse Resp BP Pulse Ox
98.1 F 73 16 127/77 99
12/06/24 07:30 12/06/24 07:30 12/06/24 07:30 12/06/24 07:30 12/06/24 10:00
I&O
12/05/24 12/06/24 12/07/24
06:59 06:59 06:59
Intake Total 240 / 240 0 / 0
Balance 240 / 240 0 / 0
Review of Systems
-
History Source: Patient
All other systems: Reviewed and negative
Constitutional: Reports No Symptoms
Respiratory: Denies Cough, Trouble Breathing or Wheezing
Cardiac: Reports No Symptoms
Abdomen/GI: Denies Nausea, Vomiting, Constipated or Bloated
Genitourinary: Reports Flank Pain (Intermittent right flank pain)
Skin: Reports No Symptoms
Neuro: Reports No Symptoms
Physical Exam
-
General: Well Nourished, No Apparent Distress, Comfortable and Conversant
HEENT: Normocephalic and Atraumatic
Respiratory: Clear to Auscultation and Non Labored Respirations
Cardiac: Regular Rhythm and S1/S2
GI: Soft, Nontender, Nondistended and Normal Bowel Sounds
Genito-urinary: No Costovertebral Tender
Musculoskeletal: No Clubbing, No Cyanosis and No Edema
Skin: Warm and Dry
Neuro: Awake, Alert, Oriented and No Motor Deficits
Psych: Calm
Data Reviewed
-
CT Scan: Report Reviewed by me
Labs: Labs Reviewed by me, Discussed with Physician, Discussed with Nurse and Discussed with Patient
[2024-12-06 15:00] VITALS: BP 130/83
--- NOTE | 2024-12-06 15:02 | W.DCSUMMARY ---
Discharge Summary
Discharge Data
Date of Admission: 11/29/24
Date of Discharge: 12/06/24
-
Pending Results: Yes
Additional Pending Results:
Immunoglobulins
ANDRA, HEp-2, IgG
Mitochondria M2 Ab
C-Reactive Protein, High Sensitivity
Hospital Course
Discharging�Physician�:�Dr. Lissette Page, Dr. Jasper Jacobsen
�
Disposition�:��Home
�
Primary�care�physician�: Guzman Pierre
�
Principal�Discharge�Diagnosis�:�Fever with elevated transaminases
�
Chronic�Discharge�Diagnosis:�Coronary artery disease with stent, High cholesterol, Hypertension, Sleep apnea, Mild to moderate degenerative disc disease at L4-5.
Hospital�Course�:
59-year-old male with a past medical history for NSTEMI, hypertension, recent cardiac catheter resulting in mid LAD PCI presented with chest pain to the [place] ED on 11/29/2024. Patient had been at home try to get ready while he felt warmness
and lightheadedness in his body as well as lightheadedness and some chest discomfort. He was dizzy with a fever and his chest discomfort was short-lived for only 45 minutes. Patient received aspirin and was started on a heparin drip and was
admitted for further management. Patient has some mild troponin elevation and some transaminitis. Patient was found to have acute kidney injury most likely due to dehydration so he was started on fluid therapy. Patient underwent echocardiogram
which did not show any abnormalities. Patient was thought to have viral illness causing increasing elevated liver enzymes as well as nonischemic myocardial injury in the setting of infection. Blood cultures were taken in the ED and he was COVID
flu negative. Patient did not have any chest pain since admission. Patient was seen with cardiology who determined that there was no plan for any cardiac catheterization at this time as his symptoms are most likely due to viral illness and he was
to continue aspirin and Brilinta. Patient continued to feel better however his liver enzymes continue to elevate and trended upwards. ID was consulted due to fever and elevated transaminases of unclear origin. Empiric antibiotics were started by
infectious disease. Hepatitis panel was negative Lyme serology was negative right upper quadrant abdominal ultrasound was also negative. GI was consulted. HIDA scan was done which showed no obstruction of the cystic duct. GI ordered autoimmune
panel AAT and iron studies. Liver biopsy is not possible due to patient being on Brilinta. Hepatotoxic medications like Tylenol and statins were held. Patient had acute right-sided flank pain throughout his stay. CT abdomen pelvis was done to
see if there is any liver involvement that might be causing pain. No abnormalities were seen on the CT other than arthritic changes. Liver studies were negative for celiac, normal F-actin antibody, positive ANDRA, negative hepatitis AB and C,
negative Lyme, mildly elevated alpha-1 antitrypsin, mildly elevated IgA. Patient will follow-up with GI in the outpatient setting and already has an appointment. Patient was instructed to get labs done before being seen by GI. He was given a slip
to get them done the Wednesday after being discharged. Patient also has a follow-up appointment with cardiology as well. Patient to hold statin therapy until his liver enzymes are stable.
�
Important�imaging�findings�:��
CT Abd/pelvis W Iv Cont (12/05/2024)
No focal abnormality gallbladder by CT with no evidence for biliary ductal dilation. Liver appears grossly within normal limits.
Mild to moderate peripheral scarring involving the right kidney with mild peripheral scarring involving the left kidney. Mild to moderate overall size of the right kidney with minimal overall decrease in size of the left kidney.
Evaluation of the pelvis limited by streak artifact from left hip prosthesis.
Bony degenerative changes as described.
Procedure�findings�:�
Echocardiogram (11/29/2024):
Normal left ventricular chamber size. Normal left ventricular systolic
function. Left ventricular ejection fraction is 60-65% by visual estimate.
Normal regional wall motion. Normal left ventricular wall thickness. Diastolic
function not assessed.
Normal right ventricular size and function.
Mild mitral regurgitation.
Compared to prior study dated 11/15/2024, there is no significant change
US Abdomen Complete/Upper (11/29/2024):
Gallbladder is slightly contracted with no evidence for gallstones. Gallbladder wall measures 3 mm, in the upper range of normal. Negative sonographic Robles's sign.
Liver length is top-normal.
Pancreas is unable to be confidently visualized.
Right kidney appears to have mild diffuse parenchymal loss. Right kidney also appears echogenic, a nonspecific finding suggesting medical renal disease.
NM Hepatobiliary (hida) (12/01/2024)
No scintigraphic evidence of common bile duct obstruction.
Small focus of uptake of activity seen on delayed images expected to be within the gallbladder, likely confirming cystic duct patency. This could be confirmed anatomically with Abdomen CT with coronal reformatted imaging.
Persistent hepatic activity, nonspecific, possibly representing hepatocellular dysfunction in this patient with apparently abnormal/elevated LFTs.
US Abdominal Doppler Only (12/03/2024)
1. Patent hepatic vasculature with appropriate directional flow, as described above.
Discharge Plan
-
Patient Disposition: Home (Routine Discharge)
Discharge Diagnosis/Procedures: Fever with elevated transaminases
Coronary artery disease with stent
High cholesterol
Hypertension
Sleep apnea
Mild to moderate degenerative disc disease at L4-5.
Condition: Fair
Diet: Low Cholesterol
Activity: As tolerated
Driving Restrictions: As prior to admission
Bathing Restrictions: None
Blood Work: Hepatic Function panel, BMP, INR (Results to be sent to Dr. Ana Paula Howe) Tests to be done on Wednesday
Activity Restrictions/Additional Instructions:
Several liver tests are pending at discharge. You need to follow-up with GI for the results
We recommend that you get vaccinated against hepatitis B
Referrals:
Guzman Pierre, [Family Provider] - in less than 1 week
Oneyda Andesron PA-C [Specified Professional Personl] - 12/18/24 8:20 am (You have a cardiology follow up appointment at the [facility]. Please call with questions. )
Julieta Osullivan PA-C [Specified Professional Personl] - 12/29/24 11:30 am (Appointment with Julieta MAYFIELD for GI Followup)
Additional Discharge Medication Instructions: Hold atorvastatin and Tylenol until liver tests are back to normal. Restart atorvastatin when okay with GI. Note that losartan dose has been reduced
Prescriptions:
New
losartan 25 mg tablet
25 mg PO DAILY 30 Days Qty: 30 0RF
Continued
Brilinta 90 mg Tablet
90 mg PO BID Qty: 180 3RF
aspirin 81 mg Tablet,Chewable
81 mg PO DAILY Qty: 0 0RF
Discontinued
losartan 50 mg Tablet
50 mg PO DAILY
atorvastatin 80 mg Tablet
80 mg PO QPM Qty: 30 2RF
Discharge Orders:
Discharge Patient (As Directed); Ordered 12/06/24
Ordered By: Lissette Page
Care Plan Goals
Care Plan Goals:
Problem: Readiness for enhanced knowledge related to diagnosis and treatment plan
Goal: Understand your diagnosis and treatment plan needs, including medications if applicable.
Instructions: Know your diagnosis, underlying causes and treatment plan options, including medications if applicable. Consult with your health care team to learn about your diagnosis and treatment plan, including medications if applicable.
Discharge Date and Time
Print Language: PORTUGUESE
[2024-12-07 12:30] LABS: IgA 569 mg/dl (70-400); IgG 2691 mg/dl (700-1600); IgM 158 mg/dl (40-230)
[2024-12-07 14:41] LABS: Mitochondrial M2 Ab, IgG >150.0 Units (0.0-24.9)
[2024-12-07 20:55] LABS: ANA, HEp-2, IgG Detected (<1:80)
[2024-12-08 06:46] LABS: ANA Pattern Nuclear Dot; Cytoplasmic Pattern AMA; Cytoplasmic Pattern Titer >1:2560
== END 2024-12-06 17:27 | disposition home or self-care (01) | DRG 871 ==
LOC: 4 WEST ACU 16:23
PROVIDERS: Internal Medicine; Physician Assistant; Registered Nurse; Student in an Organized Health Care Education/Training Program; ADMITTING PHYSICIAN Student in an Organized Health Care Education/Training Program; ATTENDING PHYSICIAN Hospitalist; CONSULT PHYSICIAN Internal Medicine; CONSULT PHYSICIAN Internal Medicine Cardiovascular Disease; EMERGENCY PHYSICIAN Emergency Medicine; FAMILY PHYSICIAN Family Medicine; OTHER PHYSICIAN Student in an Organized Health Care Education/Training Program
DX: A41.9 Sepsis, unspecified organism (principal); I21.4 Non-ST elevation (NSTEMI) myocardial infarction; N17.9 Acute kidney failure, unspecified; E87.1 Hypo-osmolality and hyponatremia; I11.0 Hypertensive heart disease with heart failure; I50.9 Heart failure, unspecified; F31.9 Bipolar disorder, unspecified; G47.33 Obstructive sleep apnea (adult) (pediatric); Z11.52 Encounter for screening for COVID-19; Z95.5 Presence of coronary angioplasty implant and graft; I25.10 Atherosclerotic heart disease of native coronary artery without angina pectoris; E78.5 Hyperlipidemia, unspecified; D64.9 Anemia, unspecified; Z96.642 Presence of left artificial hip joint; Z88.0 Allergy status to penicillin; Z88.7 Allergy status to serum and vaccine; Z79.82 Long term (current) use of aspirin; Z79.02 Long term (current) use of antithrombotics/antiplatelets; E86.0 Dehydration; Z79.899 Other long term (current) drug therapy; M51.369 Other intervertebral disc degeneration, lumbar region without mention of lumbar back pain or lower extremity pain; R76.8 Other specified abnormal immunological findings in serum
CPT/HCPCS: 93308; 71046; 74177; 76700; 78226; 80053; 81003; 81015; 82103; 82248; 82728; 82784; 82962; 83010; 83516; 83540; 83550; 83690; 84484; 85025; 85027; 85610; 85652; 85730; 86015; 86038; 86039; 86140; 86141; 86160; 86231; 86381; 86618; 86705; 86706; 86709; 86803; 87015; 87040; 87207; 87340; 87502; 87811; 93005; 93321; 93325; 93975; 94760; 96365; 99285; A9537; Q9967

== ENCOUNTER 2024-12-22 10:20 | Emergency (ER) | payer OTHER, SELFPAY ==
[2024-12-22 10:27] VITALS: BP 113/65
--- NOTE | 2024-12-22 13:01 | ED.GENMED ---
History of Present Illness
General
Chief Complaint: Head Injury
Source: patient
Exam Limitations: none
Time Seen by Provider: 12/22/24 10:48
Nursing documentation reviewed up to this point in time: agreed with
History of Present Illness
History of Present Illness:
59-year-old male with Naomi history of CAD hypertension hyperlipidemia presenting to the emergency department today after he hit the right side of his head on a bedroom dresser last night. Has felt some lightheadedness since. No severe headache
nausea vomiting numbness or weakness. No additional symptoms otherwise. Does take a antiplatelet medication.
Past History
Past History
ED Past Medical History: CAD and HTN
ED Past Surgical History: Orthopedic (Left hip replacement due to arthritis)
Social History
Tobacco: Non-smoker
Alcohol: Occasional
Drug: None
Living: with family
Employment: Employed
Review of Systems
Review of Systems
Allergies reviewed?: Yes
All Other Systems: ROS reviewed and negative except as documented in HPI and ROS
Phy Exam
Physical Exam
Physical Exam:
GENERAL: Alert , in no apparent distress
EYE: pupils equal and reactive
NECK: Supple, no significant adenopathy.
ENT: o/p clr, mmm.
CARDIAC: Regular rate and rhythm .
LUNGS: Clear breath sounds bilaterally, no acute respiratory distress, no wheezes/rales/rhonchi
ABDOMEN: Soft, without focal tenderness, no r/g, no cvat
NEUROLOGICAL: Alert and oriented, no focal neuro deficits
SKIN: Warm and dry, skin intact.
MUSCULOSKELETAL: No edema, well perfused.
PSYCH: Normal and appropriate interaction.
Course
Orders/Labs/Results
Orders:
Orders
12/22/24 10:49
CT Head W/o Iv Contrast Urgent
Comment:
Reason For Exam: fall hit head
Vital Signs
Initial and Last Documented VS:
Initial Vital Signs
Temp Pulse Resp BP Pulse Ox
98.4 F 85 18 113/65 100
12/22/24 10:27 12/22/24 10:27 12/22/24 10:12/22/24 10:27 12/22/24 10:27
Last Documented Vital Signs
Temp Pulse Resp BP Pulse Ox
98.4 F 85 18 113/65 100
12/22/24 10:27 12/22/24 10:27 12/22/24 10:27 12/22/24 10:27 12/22/24 10:27
MDM/Problems Addressed
MDM/Problems Addressed:
59-year-old male presenting to the emergency department today with concerns of getting his head hit on the right side of his head. Normal neurologic evaluation. CT scan was obtained without emergent findings. No signs of emergent pathology.
Stable for outpatient management return precautions given.
*Critical Care Note
Total Time (30-74mins, 75-104mins- exclusive of procedures): Not Applicable
ED Attending Note
-
Portions of this chart may have been created with voice recognition software.� Occasional wrong word or��sound alike� substitutions may have occurred due to the inherent limitations of voice recognition software.
Discharge Plan
Departure
Patient Disposition: Home (Routine Discharge)
Date of Disposition: 12/22/24
Time of Disposition: 13:13
Patient with high blood pressure during this ER visit?: No
Condition: Good
Covid-19: Not Applicable
Discharge Problem:
Mild closed head injury
Instructions: Minor Head Injury (DC)
Prescriptions:
No Action
Brilinta 90 mg Tablet
90 mg PO BID Qty: 180 3RF
aspirin 81 mg Tablet,Chewable
81 mg PO DAILY Qty: 0 0RF
losartan 25 mg tablet
25 mg PO DAILY 30 Days Qty: 30 0RF
Referrals:
Guzman Pierre DO [Family Provider] -
Activity Restrictions/Additional Instructions:
You came to the emergency department today after hitting her head. Here your reassuring assessment normal head CT. Return for any worsening, new or concerning symptoms.
Interventions
Interventions:
*Risk Screen - Suicide Last Done: 12/22/24 10:34
*Neglect/Abuse Screening Last Done: 12/22/24 10:34
ED- Neurological Assessment Last Done: 12/22/24 11:11
ED-Skin Assessment Last Done: 12/22/24 11:11
Discharge Date and Time
Print Language: AZERI
[2024-12-22 13:18] VITALS: BP 112/74
== END 2024-12-22 14:20 | disposition home or self-care (01) ==
LOC: EMR 10:20
PROVIDERS: EMERGENCY PHYSICIAN Emergency Medicine; FAMILY PHYSICIAN Family Medicine
DX: S09.90XA Unspecified injury of head, initial encounter (principal); W22.03XA Walked into furniture, initial encounter; I25.10 Atherosclerotic heart disease of native coronary artery without angina pectoris; I10 Essential (primary) hypertension; E78.5 Hyperlipidemia, unspecified
CPT/HCPCS: 99284; 70450

== ENCOUNTER 2024-12-25 12:05 | Outpatient (RCR) | payer OTHER, SELFPAY | END 2024-12-25 23:59 | disposition home or self-care (01) | LOC: CRHB 12:05 | PROVIDERS: ATTENDING PHYSICIAN Internal Medicine Interventional Cardiology; FAMILY PHYSICIAN Internal Medicine Cardiovascular Disease | DX: I25.10 Atherosclerotic heart disease of native coronary artery without angina pectoris (principal); I21.4 Non-ST elevation (NSTEMI) myocardial infarction (principal); I25.2 Old myocardial infarction (principal); Z95.5 Presence of coronary angioplasty implant and graft | CPT/HCPCS: 93797; 93798 ==

== ENCOUNTER 2024-12-25 13:00 | Emergency (ER) | payer OTHER, SELFPAY ==
[2024-12-25 13:02] VITALS: BP 128/68
[2024-12-25 13:34] LABS: Hemoglobin 10.3 g/dL (13.0-18.0); Mean Corp Hgb Conc. 34.3 g/dL (33.0-37.0); Mean Corpuscular Hgb 27.9 pg (27.0-31.0); Mean Corpuscular Volume 81.3 fL (80.0-94.0); Red Blood Cell Count 3.69 10^6/uL (4.70-6.10); Red Cell Dist. Width 12.6 % (11.5-14.5); White Blood Cell Count 6.4 10^3/uL (4.8-10.8)
[2024-12-25 13:52] LABS: ALT (SGPT) 709 U/L (0-50); AST (SGOT) 796 U/L (17-59); Albumin 3.6 g/dl (3.5-5.0); Alkaline Phosphatase 96 U/L (38-126); Blood Urea Nitrogen 17 mg/dl (9-20); Calcium 8.5 mg/dl (8.4-10.2); Carbon Dioxide 20 mmol/L (22-30); Chloride 99 mmol/L (98-107); Glucose 110 mg/dl (70-99); Potassium 4.2 mmol/L (3.5-5.1); Sodium 131 mmol/L (135-145); Total Bilirubin 0.9 mg/dl (0.2-1.3); Total Protein 8.1 g/dl (6.3-8.2); eGFR 58.62
[2024-12-25 14:13] LABS: % Basophils 0.3 % (0-2); % Eosinophils 0.3 % (0-6); % Immature Granulocytes 0.6 % (0-0.5); % Lymphocytes 19.2 % (20.5-51.1); % Monocytes 8.4 % (1.7-9.3); % Neutrophils 71.2 % (42.2-75.2); Absolute Lymphocytes 1.2 10^3/uL (1.2-3.4); Absolute Monocytes 0.5 10^3/uL (0.1-0.6); Absolute Neutrophils 4.6 10^3/uL (1.4-6.5); Nucleated Red Blood Cells % 0 % (-); Platelet Count 142 10^3/uL (130-400)
[2024-12-25 14:14] LABS: Mean Platelet Volume 19.5 fL (7.4-10.4)
--- NOTE | 2024-12-25 15:48 | ED.GENMED ---
History of Present Illness
General
Chief Complaint: Blood Pressure Problem
Time Seen by Provider: 12/25/24 15:33
History of Present Illness
History of Present Illness:
59-year-old male with history of coronary artery disease, hypertension, and hyperlipidemia presents the emergency department for evaluation of orthostatic hypotension that occurred at cardiac rehab today. He was then sent to the ED with a direction
to hold his losartan going forward. At the current time he denies any complaints. No fever, chills, sweats.
Past History
Past History
ED Past Medical History: CAD and HTN
ED Past Surgical History: Orthopedic (Left hip replacement due to arthritis)
Social History
Tobacco: Non-smoker
Alcohol: Occasional
Drug: None
Living: with family
Employment: Employed
Review of Systems
Review of Systems
Allergies reviewed?: Yes
All Other Systems: ROS reviewed and negative except as documented in HPI and ROS
Phy Exam
Physical Exam
Physical Exam:
GEN: Well appearing, NAD, WDWN
HEENT: Oral mucosa moist, no scleral icterus
Cardiac: Regular rate
Lung: No respiratory distress, no tachypnea
MSK: No gross deformity or injuries
Skin: Good color, no pallor or jaundice, no rashes
Neuro: AO x3, moves all extremities freely
Psych: Calm, cooperative
Course
Orders/Labs/Results
Orders:
Orders
12/25/24 13:01
Electrocardiogram (*1) Urgent
Reason for Study: Vertigo / Dizzy
EKG- Treatment ONCE
12/25/24 13:19
CMP [Comprehensive Metabolic Panel] Urgent
Complete Blood Count/With Diff Urgent
12/25/24 15:52
0.9% Sodium Chloride 1000 ml [Nss] 1,000 ml IV BOLUS
Abnormal Lab Results
12/25/24
13:19
RBC 3.69 L 10^6/uL
(4.70-6.10)
Hgb 10.3 L g/dL
(13.0-18.0)
Hct 30.0 L %
(39.0-52.0)
MPV 19.5 H fL
(7.4-10.4)
Immature Gran % 0.6 H %
(0-0.5)
Lymphocytes % 19.2 L %
(20.5-51.1)
Sodium 131 L mmol/L
(135-145)
Carbon Dioxide 20 L mmol/L
(22-30)
Creatinine 1.4 H mg/dL
(0.7-1.3)
Glucose 110 H mg/dl
(70-99)
AST 796 H* U/L
(17-59)
ALT 709 H* U/L
(0-50)
12/25/24 13:19
12/25/24 13:19
Vital Signs
Initial and Last Documented VS:
Initial Vital Signs
Temp Pulse Resp BP Pulse Ox
99.5 F 94 18 128/68 100
12/25/24 13:02 12/25/24 13:02 12/25/24 13:02 12/25/24 13:02 12/25/24 13:02
Last Documented Vital Signs
Temp Pulse Resp BP Pulse Ox
99.5 F 78 20 122/78 100
12/25/24 13:02 12/25/24 18:45 12/25/24 18:45 12/25/24 18:26 12/25/24 18:26
MDM/Problems Addressed
MDM/Problems Addressed:
The acute patient serum creatinine and transaminases may be reflective of hypotension in the setting of orthostasis. There may also be some component of volume contraction present. He was given 1 L IV fluids as further discussion yields that the
patient drinks 4 cups of water daily or less. Given his body weight this is not sufficient. Blood pressures improved and he was no longer orthostatic on reassessment. Was noted to have mild downtrend in hemoglobin but denies any black or bloody
stools, advised to monitor for this given his current use of antiplatelet therapies. He will stop his losartan going forward until primary care or cardiology follow-up. In regards to the transaminitis I discussed this with gastroenterology who
agrees this is likely an acute phase reactant in the setting of hypotension and recent hepatocellular injury, ultimately he has follow-up in 4 days and we will send him for repeat LFT assessment prior to that appointment
*Critical Care Note
Total Time (30-74mins, 75-104mins- exclusive of procedures): Not Applicable
ED Attending Note
-
Portions of this chart may have been created with voice recognition software.� Occasional wrong word or��sound alike� substitutions may have occurred due to the inherent limitations of voice recognition software.
Discharge Plan
Departure
Patient Disposition: Home (Routine Discharge)
Date of Disposition: 12/25/24
Time of Disposition: 18:55
Patient with high blood pressure during this ER visit?: No
Discharge Problem:
Orthostatic hypotension
Instructions: Orthostatic hypotension
Prescriptions:
No Action
Brilinta 90 mg Tablet
90 mg PO BID Qty: 180 3RF
aspirin 81 mg Tablet,Chewable
81 mg PO DAILY Qty: 0 0RF
losartan 25 mg tablet
25 mg PO DAILY 30 Days Qty: 30 0RF
Referrals:
Guzman Pierre, DO [Family Provider] -
Activity Restrictions/Additional Instructions:
Do not take your losartan unless directed otherwise by your primary doctor or pesticide applicator
Have your liver enzymes rechecked on prior to your GI appointment
Interventions
Interventions:
*Risk Screen - Suicide Last Done: 12/25/24 13:02
*General Assessment Last Done: 12/25/24 13:02
*Neglect/Abuse Screening Last Done: 12/25/24 16:13
*ED- Fall Risk Assessment Last Done: 12/25/24 19:20
*ED COVID-19 Vaccine History Last Done: 12/25/24 16:13
*Nursing Disposition Last Done: 12/25/24 19:20
ED- Cardiac Assessment Last Done: 12/25/24 16:30
ED- Pulmonary Assessment Last Done: 12/25/24 16:30
Discharge Date and Time
Discharge Date/Time: 12/25/24 19:20
Print Language: POLISH
[2024-12-25] MEDS: NSS 1000 IV (17:06)
[2024-12-25 17:08] VITALS: BP 109/72
[2024-12-25 18:00] VITALS: BP 118/71
[2024-12-25 18:26] VITALS: BP 122/78; BP 125/82
== END 2024-12-25 19:20 | disposition home or self-care (01) ==
LOC: EMR 13:00
PROVIDERS: Student in an Organized Health Care Education/Training Program; EMERGENCY PHYSICIAN Emergency Medicine; FAMILY PHYSICIAN Family Medicine
DX: I95.1 Orthostatic hypotension (principal); I25.10 Atherosclerotic heart disease of native coronary artery without angina pectoris; I10 Essential (primary) hypertension; E78.00 Pure hypercholesterolemia, unspecified; Z96.642 Presence of left artificial hip joint
CPT/HCPCS: 99283; 96360; 80053; 85025; 93005

== ENCOUNTER → 2024-12-28 10:34 | Outpatient (REF) | payer OTHER, SELFPAY ==
[2024-12-28 12:10] LABS: Albumin 3.6 g/dl (3.5-5.0); Alkaline Phosphatase 160 U/L (38-126); Blood Urea Nitrogen 16 mg/dl (9-20); Calcium 8.5 mg/dl (8.4-10.2); Carbon Dioxide 20 mmol/L (22-30); Chloride 101 mmol/L (98-107); Glucose 104 mg/dl (70-99); Potassium 4.1 mmol/L (3.5-5.1); Sodium 135 mmol/L (135-145); Total Bilirubin 1.7 mg/dl (0.2-1.3); Total Protein 8.5 g/dl (6.3-8.2); eGFR 46.44
[2024-12-28 12:21] LABS: ALT (SGPT) 891 U/L (0-50); AST (SGOT) 784 U/L (17-59)
== END ==
LOC: REG 10:34
PROVIDERS: ATTENDING PHYSICIAN Emergency Medicine; FAMILY PHYSICIAN Family Medicine
DX: R74.01 Elevation of levels of liver transaminase levels (principal)
CPT/HCPCS: 36415; 80053

== ENCOUNTER 2024-12-30 10:27 | Emergency (ER) | payer OTHER, SELFPAY ==
[2024-12-30] VITALS (11 sets, daily range): BP systolic 101–117; BP diastolic 58–74; BMI 24.9
--- NOTE | 2024-12-30 12:24 | EDRN ---
hold on the ABO for now- pe physician
[2024-12-30 12:33] LABS: Hematocrit 28.4 % (39.0-52.0); Hemoglobin 9.4 g/dL (13.0-18.0); Mean Corp Hgb Conc. 33.1 g/dL (33.0-37.0); Mean Corpuscular Hgb 27.5 pg (27.0-31.0); Mean Platelet Volume 11.5 fL (7.4-10.4); Platelet Count 198 10^3/uL (130-400); Red Blood Cell Count 3.42 10^6/uL (4.70-6.10); Red Cell Dist. Width 13.4 % (11.5-14.5); White Blood Cell Count 6.5 10^3/uL (4.8-10.8)
[2024-12-30 12:34] LABS: Albumin 3.5 g/dl (3.5-5.0); Alkaline Phosphatase 136 U/L (38-126); Blood Urea Nitrogen 19 mg/dl (9-20); Calcium 8.5 mg/dl (8.4-10.2); Carbon Dioxide 22 mmol/L (22-30); Chloride 103 mmol/L (98-107); Glucose 102 mg/dl (70-99); Potassium 4.3 mmol/L (3.5-5.1); Sodium 138 mmol/L (135-145); Total Bilirubin 1.8 mg/dl (0.2-1.3); Total Protein 8.7 g/dl (6.3-8.2); eGFR 40.64
[2024-12-30 12:55] LABS: ALT (SGPT) 858 U/L (0-50); AST (SGOT) 969 U/L (17-59)
[2024-12-30 13:41] LABS: INR 1.34; PT 16.8 Sec (11.4-14.6)
[2024-12-30 13:51] LABS: % Basophils 0.3 % (0-2); % Eosinophils 0.3 % (0-6); % Immature Granulocytes 1.8 % (0-0.5); % Lymphocytes 12.7 % (20.5-51.1); % Monocytes 10.4 % (1.7-9.3); % Neutrophils 74.5 % (42.2-75.2); Absolute Immature Granulocytes 0.1 10^3/uL (0-0.05); Absolute Lymphocytes 0.8 10^3/uL (1.2-3.4); Absolute Monocytes 0.7 10^3/uL (0.1-0.6); Absolute Neutrophils 4.9 10^3/uL (1.4-6.5); Nucleated Red Blood Cells % 0 % (-)
--- NOTE | 2024-12-30 15:07 | ED.GENMED ---
History of Present Illness
General
Chief Complaint: Rectal Bleeding
Source: patient
Time Seen by Provider: 12/30/24 11:45
History of Present Illness
History of Present Illness:
59-year-old male presents to the emergency room complaining of blood from his rectum. Patient had a normal bowel movement. He stood up and sat back down on the lid noted there was some blood on the lid of the toilet. He wiped and saw some blood
on the toilet paper. The stool itself was normal. Patient denies any abdominal pain. He does take Brilinta after having an SD in October. Patient is aware of the fact he has hemorrhoids. Patient denies any nausea or vomiting. He was feeling
fine prior to seeing blood.
Past History
Past History
ED Past Medical History: CAD and HTN
ED Past Surgical History: Orthopedic (Left hip replacement due to arthritis)
Social History
Tobacco: Non-smoker
Alcohol: Occasional
Drug: None
Living: with family
Employment: Employed
Phy Exam
Physical Exam
Physical Exam:
General: Awake, Alert, Oriented X3. No acute distress.
Vitals: unremarkable
Head: Atraumatic
Eyes: Pupils equal, EOMI
Throat: Airway intact, no exudates
Neck: Trachea midline
Lungs: Clear and equal b/l
Heart: Regular rate, no murmurs
Abd: Soft, Nontender, No pulsatile mass
Rectal: External hemorrhoids. No active bleeding. Brown stool on digital exam
Neuro: Nonfocal
Skin: Warm, dry, no rash
Extremities: pulses equal b/l, no edema
Course
Orders/Labs/Results
Orders:
Orders
12/30/24 12:05
Type And Crossmatch [Type+Screen] Urgent
Complete Blood Count/With Diff Urgent
Comprehensive Metabolic Panel Urgent
12/30/24 13:08
ABO2 Urgent
BBK Wristband Number:
Associate notified that ABO2 has been ordered: ADAIR
Date: 12/30/24
Time: 12:21
Software Applications Engineer ID: [id number]
Prothrombin Time Urgent
Abnormal Lab Results
12/30/24 12/30/24
12:05 13:08
RBC 3.42 L 10^6/uL
(4.70-6.10)
Hgb 9.4 L g/dL
(13.0-18.0)
Hct 28.4 L %
(39.0-52.0)
MPV 11.5 H fL
(7.4-10.4)
Abs Immat Gran (auto) 0.1 H 10^3/uL
(0-0.05)
Absolute Lymphs (auto) 0.8 L 10^3/uL
(1.2-3.4)
Absolute Monos (auto) 0.7 H 10^3/uL
(0.1-0.6)
Immature Gran % 1.8 H %
(0-0.5)
Lymphocytes % 12.7 L %
(20.5-51.1)
Monocytes % 10.4 H %
(1.7-9.3)
PT 16.8 H Sec
(11.4-14.6)
Creatinine 1.9 H mg/dL
(0.7-1.3)
Glucose 102 H mg/dl
(70-99)
Total Bilirubin 1.8 H mg/dl
(0.2-1.3)
AST 969 H* U/L
(17-59)
ALT 858 H* U/L
(0-50)
Alkaline Phosphatase 136 H U/L
(38-126)
Total Protein 8.7 H g/dl
(6.3-8.2)
12/30/24 12:05
12/30/24 12:05
Vital Signs
Initial and Last Documented VS:
Initial Vital Signs
Temp Pulse Resp BP Pulse Ox
98.9 F 87 16 105/58 97
12/30/24 10:37 12/30/24 10:37 12/30/24 10:37 12/30/24 10:37 12/30/24 10:37
Last Documented Vital Signs
Temp Pulse Resp BP Pulse Ox
98.9 F 76 15 109/71 97
12/30/24 10:37 12/30/24 14:00 12/30/24 14:00 12/30/24 14:00 12/30/24 10:37
MDM/Problems Addressed
Differential Diagnosis Includes:
Hemorrhoidal bleeding, diverticular bleeding, colitis
MDM/Problems Addressed:
Patient presents after having some blood noted after having a bowel movement. The overall presentation seems most consistent with hemorrhoidal bleeding. However reviewing the patient's labs he was recently hospitalized with an SD and started on
Brilinta. He then had a repeat visit where he was noted to have rising liver function test. Liver function test today are quite elevated. His bilirubin is now rising at 1.8. His INR is mildly elevated at 1.3. Discussed with GI here. At this
point they recommend transfer to a tertiary care center. Discussed with Dr. Kiser at [facility].
*Pulse Oximetry
Patient hypoxic: no
*Critical Care Note
Total Time (30-74mins, 75-104mins- exclusive of procedures): Not Applicable
ED Attending Note
-
Portions of this chart may have been created with voice recognition software.� Occasional wrong word or��sound alike� substitutions may have occurred due to the inherent limitations of voice recognition software.
Discharge Plan
Departure
Patient Disposition: Acute Care Hospital
Date of Disposition: 12/30/24
Time of Disposition: 15:09
Condition: Fair
Discharge Problem:
Acute hepatitis, Bleeding hemorrhoid
Prescriptions:
No Action
Brilinta 90 mg Tablet
90 mg PO BID Qty: 180 3RF
aspirin 81 mg Tablet,Chewable
81 mg PO DAILY Qty: 0 0RF
Referrals:
Guzman Pierre, DO [Family Provider] -
Hospital Transfer
Other hospital: [facility]
I certify that the patient requires transfer: Yes
Discussed case with accepting physician: Dr. Mcfarlane
Reason for transfer: specialties available
Interventions
Interventions:
*Risk Screen - Suicide Last Done: 12/30/24 10:40
*General Assessment Last Done: 12/30/24 11:38
*Neglect/Abuse Screening Last Done: 12/30/24 10:40
*ED- Fall Risk Assessment Last Done: 12/30/24 11:38
*ED COVID-19 Vaccine History Last Done: 12/30/24 11:36
TP-Jajzrq-Vyqbhkcuuv Assessment Last Done: 12/30/24 11:49
ED- Cardiac Assessment Last Done: 12/30/24 11:49
ED- Pulmonary Assessment Last Done: 12/30/24 11:49
Discharge Date and Time
Print Language: WALLISIAN
[2024-12-30] MEDS: BRILINTA 90 MG PO (19:12)
[2024-12-30] MEDS: NSS 1000 IV (21:14)
== END 2024-12-30 21:30 | disposition short-term general hospital (02) ==
LOC: EMR 10:27
PROVIDERS: Emergency Medicine; EMERGENCY PHYSICIAN Emergency Medicine; FAMILY PHYSICIAN Family Medicine
DX: B17.9 Acute viral hepatitis, unspecified (principal); K64.9 Unspecified hemorrhoids; R79.1 Abnormal coagulation profile; I25.10 Atherosclerotic heart disease of native coronary artery without angina pectoris; I10 Essential (primary) hypertension; I25.2 Old myocardial infarction; Z79.02 Long term (current) use of antithrombotics/antiplatelets
CPT/HCPCS: 99285; 80053; 85025; 85610; 86850; 86900; 86901

== ENCOUNTER → 2025-02-12 11:37 | Outpatient (REF) | payer OTHER, SELFPAY | LOC: PAVMRI 11:37 | PROVIDERS: ATTENDING PHYSICIAN Surgery; FAMILY PHYSICIAN Family Medicine | DX: R97.20 Elevated prostate specific antigen [PSA] (principal) | CPT/HCPCS: 72197; A9575 ==

== ENCOUNTER 2025-02-23 11:52 | Outpatient (RCR) | payer OTHER, SELFPAY ==
[2025-02-22 09:58] LABS: HDL Cholesterol 97 mg/dl; LDL Cholesterol, Calculated 120 mg/dl; Total Cholesterol 240 mg/dl (50-199); Triglyceride 115 mg/dl (10-149); Very Low Density Lipoprotein 23 mg/dl (0-30)
== END 2025-02-23 23:59 | disposition home or self-care (01) ==
LOC: CRHB 11:52
PROVIDERS: ATTENDING PHYSICIAN Internal Medicine Interventional Cardiology; FAMILY PHYSICIAN Internal Medicine Cardiovascular Disease
DX: I25.10 Atherosclerotic heart disease of native coronary artery without angina pectoris (principal); I21.4 Non-ST elevation (NSTEMI) myocardial infarction (principal); Z95.5 Presence of coronary angioplasty implant and graft; I25.2 Old myocardial infarction
CPT/HCPCS: 80061; 93797; 93798

== ENCOUNTER → 2025-03-02 14:43 | Outpatient (REF) | payer OTHER, SELFPAY | LOC: RAD 14:43 | PROVIDERS: ATTENDING PHYSICIAN Internal Medicine Interventional Cardiology; PRIMARYCARE PHYSICIAN Family Medicine | DX: R60.0 Localized edema (principal) | CPT/HCPCS: 93971 ==

== ENCOUNTER 2025-03-07 11:59 | Outpatient (RCR) | payer OTHER, SELFPAY | END 2025-03-07 23:59 | disposition home or self-care (01) | LOC: CRHB 11:59 | PROVIDERS: ATTENDING PHYSICIAN Internal Medicine Interventional Cardiology; FAMILY PHYSICIAN Internal Medicine Cardiovascular Disease | DX: I25.10 Atherosclerotic heart disease of native coronary artery without angina pectoris (principal); Z95.5 Presence of coronary angioplasty implant and graft; I25.2 Old myocardial infarction | CPT/HCPCS: 93797; 93798; G0422; G0423 ==